=== PATIENT | female | born 1975 | race Caucasian/White ===

== ENCOUNTER 2017-04-29 10:54 | Emergency (ER) | payer MEDICAID ==
[2017-04-29 11:12] VITALS: BP 103/68
--- NOTE | 2017-04-29 11:56 | EDM.PDOC ---
ED HPI GENERAL MEDICAL PROBLEM - General Chief Complaint: Genitourinary Problem Stated Complaint: POSS BLADDER INFECTION Time Seen by Provider: 04/29/17 11:43 Source of Information: Reports: Patient, Family (mother) History Limitations: Reports: No Limitations - History of Present Illness INITIAL COMMENTS - FREE TEXT/NARRATIVE: 41-year-old female presents for evaluation and treatment of possible urinary tract infection. Reports that she first started experiencing some dysuria this morning. She describes a burning sensation when she voids. She also reports that she's had some chills, low back pain, nausea and vomiting for the last 2 days. No fevers, hematuria or vaginal discharge. She reports strong odor with her urine. patient recently finished a course of Cipro last week for an MRSA infection in her finger and her vagina. She did have her influenza vaccine this season. Mom reports that she drinks plenty of water. Perineal Area Pain Score (Numeric/FACES): 4 - Related Data Allergies Allergy/AdvReac Type Severity Reaction Status Date / Time mesalamine Allergy Rash Verified 04/29/17 11:01 Sulfa (Sulfonamide Allergy Rash Verified 04/29/17 11:01 Antibiotics) Home Meds: Home Meds Escitalopram [Lexapro] 20 mg PO DAILY 07/27/13 [History] Ferrous Sulfate [Ferosul] 325 mg PO BID 07/27/13 [History] Fluticasone/Salmeterol [Advair 250-50 Diskus] 1 puff INH BID 07/27/13 [History] Mesalamine [Lialda] 2.4 gm PO DAILY 07/27/13 [History] Montelukast Sodium 10 mg PO DAILY 07/27/13 [History] Norgestimate-Ethinyl Estradiol [Ortho Tri-Cyclen] 1 each PO DAILY 07/27/13 [ History] PNV95/Ferrous Fumarate/FA [ Multivitamins] 1 each PO DAILY 07/27/13 [ History] buPROPion [Wellbutrin SR] 100 mg PO DAILY 07/27/13 [History] carBAMazepine [Carbamazepine] 300 mg PO BID 07/27/13 [History] Famotidine 20 mg PO BID 11/03/15 [History] Bactroban Ointment. 1 gr TOP ASDIRECTED 01/15/16 [History] Mupirocin Oint [Bactroban Oint] 22 gm TOP TID #1 tube 02/23/16 [Rx] Doxycycline [Vibramycin] 100 mg PO Q12HR #14 cap 06/11/16 [Rx] Nitrofurantoin Monohyd/M-Cryst [Macrobid 100 mg Capsule] 100 mg PO BID #10 capsule 04/29/17 [Rx] Past Medical History HEENT History: Reports: Impaired Vision Respiratory History: Reports: Asthma Gastrointestinal History: Reports: GERD, Other (See Below) Other Gastrointestinal History: colitis Neurological History: Reports: Migraines, Seizure Psychiatric History: Reports: Anxiety, Depression, Other (See Below) Other Psychiatric History: developmental delay Dermatologic History: Reports: Other (See Below) Other Dermatologic History: 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 - Infectious Disease History Infectious Disease History: Reports: MRSA - Past Surgical History Female Surgical History: Reports: Other (See Below) Social & Family History - Family History Family Medical History: Noncontributory Cardiac: Reports: CAD Neurological: Reports: CVA Endocrine/Metabolic: Reports: Diabetes, type II Oncologic: Reports: Breast, Colon - Tobacco Use Smoking Status *Q: Never Smoker Second Hand Smoke Exposure: No - Caffeine Use Caffeine Use: Reports: None - Recreational Drug Use Recreational Drug Use: No - Living Situation & Occupation Occupation: Other ED ROS GENERAL - Review of Systems Review Of Systems: See Below Constitutional: Reports: Chills. Denies: Fever GI/Abdominal: Reports: Nausea. Denies: Abdominal Pain, Vomiting : Reports: Dysuria, Pain (suprapubic), Other (reports change in urine odor; denies any vaginal discharge or vaginal pruritus). Denies: Hematuria Musculoskeletal: Reports: Back Pain (lower back) ED EXAM, RENAL/ - Physical Exam Exam: See Below Exam Limited By: No Limitations General Appearance: Alert, WD/WN, No Apparent Distress Respiratory/Chest: No Respiratory Distress, Lungs Clear, Normal Breath Sounds Cardiovascular: Normal Peripheral Pulses, Regular Rate, Rhythm, No Murmur GI/Abdominal: Normal Bowel Sounds, Soft, Non-Tender Back Exam: Normal Inspection. No: CVA Tenderness (L), CVA Tenderness (R) Neurological: Alert, Oriented, Normal Cognition Psychiatric: Normal Affect, Normal Mood Skin Exam: Warm, Dry, Normal Color Course - Vital Signs Last Recorded V/S: Last Vital Signs Temp 36.9 C 04/29/17 11:08 Pulse 72 04/29/17 11:08 Resp 12 04/29/17 11:08 BP 103/68 04/29/17 11:08 Pulse Ox 95 04/29/17 11:08 - Orders/Labs/Meds Labs: Laboratory Tests 04/29/17 Range/Units 11:00 Urine Color Yellow (Yellow) Urine Appearance Slt cloudy H (Clear) Urine pH 5.5 (5.0-8.0) Ur Specific [place] > or = 1.030 (1.005-1.030) Urine Protein Negative (Negative) Urine Glucose (UA) Negative (Negative) Urine Ketones Negative (Negative) Urine Occult Blood Negative (Negative) Urine Nitrite Negative (Negative) Urine Bilirubin Negative (Negative) Urine Urobilinogen 0.2 (0.2-1.0) Ur Leukocyte Esterase Trace H (Negative) Urine RBC Not seen (0-5) /hpf Urine WBC 0-5 (0-5) /hpf Ur Epithelial Cells 10-20 H (0-5) /hpf Urine Bacteria Moderate H (FEW) /hpf Urine Mucus Many H (FEW) /hpf - Re-Assessments/Exams Free Text/Narrative Re-Assessment/Exam: 04/29/17 11:53 Urine shows moderate bacteria on microscopy. Trace leukocytes. We'll treat for urinary tract infection. urine for culture. Mom asked that we call her with results. Call jahaira at [phone] if change in antibiotics are needed. Discharge instructions as documented. Departure - Departure Time of Disposition: 11:54 Disposition: Home, Self-Care 01 Condition: Good Clinical Impression: UTI, Urinary tract infectious disease - Discharge Information Prescriptions: Nitrofurantoin Monohyd/M-Cryst [Macrobid 100 mg Capsule] 100 mg PO BID #10 capsule Instructions: Urinary Tract Infection, Adult, [id number] Referrals: Kelly Rivera PA-C [Primary Care Provider] - Forms: ED Department Discharge Additional Instructions: Macrobid 1 tablet twice a day for 5 days. Make sure you drink plenty of fluids. [id number] Azo as needed for dysuria relief. Follow up with your primary care provider this week if your symptoms have not improved. Please return to the ER if your symptoms change or worsen.
== END 2017-04-29 12:10 | disposition home or self-care (01) ==
LOC: JD.ED 10:54
DX: N39.0 Urinary tract infection, site not specified (principal); Z88.2 Allergy status to sulfonamides; Z88.8 Allergy status to other drugs, medicaments and biological substances; Z79.899 Other long term (current) drug therapy
CPT/HCPCS: 81001; 99283; 99284

== ENCOUNTER 2017-05-01 18:45 | Emergency (ER) | payer MEDICAID ==
[2017-05-01 18:59] VITALS: BP 119/69
[2017-05-01] MEDS ORDERED: Doxycycline 100 MG Cap PO ONE (21:36)
--- NOTE | 2017-05-01 21:40 | EDM.PDOC ---
ED HPI GENERAL MEDICAL PROBLEM - General Chief Complaint: Genitourinary Problem Stated Complaint: BLADDER PROBLEMS Time Seen by Provider: 05/01/17 19:45 Source of Information: Reports: Patient History Limitations: Reports: No Limitations - History of Present Illness INITIAL COMMENTS - FREE TEXT/NARRATIVE: 41-year-old female with developmental disability presents with her mother for evaluation and treatment of urinary tract infection. Patient was seen by myself on Monday. UA showed a urinary tract infection. She is started on Macrobid. Unfortunately, due to a computer error the urine was not sent for culture as ordered. Patient presents today reporting that her urinary tract infections are not getting any better and seemed to be worsening. She has been taking Azo but continues to have dysuria. She reports pain to the suprapubic area and into her low back. She denies any nausea, vomiting, fevers or chills. Uterine Pain Score (Numeric/FACES): 7 - Related Data Allergies Allergy/AdvReac Type Severity Reaction Status Date / Time mesalamine Allergy Rash Verified 05/01/17 18:58 Sulfa (Sulfonamide Allergy Rash Verified 05/01/17 18:58 Antibiotics) Home Meds: Home Meds Escitalopram [Lexapro] 20 mg PO DAILY 07/27/13 [History] Ferrous Sulfate [Ferosul] 325 mg PO BID 07/27/13 [History] Fluticasone/Salmeterol [Advair 250-50 Diskus] 1 puff INH BID 07/27/13 [History] Mesalamine [Lialda] 2.4 gm PO DAILY 07/27/13 [History] Montelukast Sodium 10 mg PO DAILY 07/27/13 [History] Norgestimate-Ethinyl Estradiol [Ortho Tri-Cyclen] 1 each PO DAILY 07/27/13 [ History] PNV95/Ferrous Fumarate/FA [ Multivitamins] 1 each PO DAILY 07/27/13 [ History] buPROPion [Wellbutrin SR] 100 mg PO DAILY 07/27/13 [History] carBAMazepine [Carbamazepine] 300 mg PO BID 07/27/13 [History] Famotidine 20 mg PO BID 11/03/15 [History] Bactroban Ointment. 1 gr TOP ASDIRECTED 01/15/16 [History] Mupirocin Oint [Bactroban Oint] 22 gm TOP TID #1 tube 02/23/16 [Rx] Doxycycline [Vibramycin] 100 mg PO Q12HR #14 cap 06/11/16 [Rx] Nitrofurantoin Monohyd/M-Cryst [Macrobid 100 mg Capsule] 100 mg PO BID #10 capsule 04/29/17 [Rx] Doxycycline [Vibramycin] 100 mg PO Q12HR #19 cap 05/01/17 [Rx] Past Medical History HEENT History: Reports: Impaired Vision Respiratory History: Reports: Asthma Gastrointestinal History: Reports: GERD, Other (See Below) Other Gastrointestinal History: colitis Neurological History: Reports: Migraines, Seizure Psychiatric History: Reports: Anxiety, Depression, Other (See Below) Other Psychiatric History: developmental delay Dermatologic History: Reports: Other (See Below) Other Dermatologic History: MRSA vaginal - and outbreak under nails recently - Infectious Disease History Infectious Disease History: Reports: MRSA - Past Surgical History Female Surgical History: Reports: Other (See Below) Social & Family History - Family History Family Medical History: Noncontributory Cardiac: Reports: CAD Neurological: Reports: CVA Endocrine/Metabolic: Reports: Diabetes, type II Oncologic: Reports: Breast, Colon - Tobacco Use Smoking Status *Q: Never Smoker Second Hand Smoke Exposure: No - Caffeine Use Caffeine Use: Reports: None - Recreational Drug Use Recreational Drug Use: No - Living Situation & Occupation Occupation: Other ED ROS GENERAL - Review of Systems Review Of Systems: See Below Constitutional: Denies: Fever, Chills GI/Abdominal: Reports: Abdominal Pain (suprapubic discomfort). Denies: Nausea, Vomiting : Reports: Dysuria, Flank Pain (bilateral) Musculoskeletal: Reports: Back Pain (bilateral lower back) ED EXAM, RENAL/ - Physical Exam Exam: See Below Exam Limited By: No Limitations General Appearance: Alert, WD/WN, No Apparent Distress Ears: Normal External Exam Nose: Normal Inspection Throat/Mouth: Normal Inspection, Normal Lips, Normal Oropharynx, Normal Voice, No Airway Compromise Respiratory/Chest: No Respiratory Distress, Lungs Clear, Normal Breath Sounds Cardiovascular: Normal Peripheral Pulses, Regular Rate, Rhythm, No Murmur GI/Abdominal: Normal Bowel Sounds, Soft, Tender (suprapubic) (Female) Exam: Normal External Exam, Normal Speculum Exam, Vaginal Discharge (white, thin). No: Vaginal Bleeding Back Exam: Normal Inspection, CVA Tenderness (L), CVA Tenderness (R) Neurological: Alert, Oriented, Normal Cognition Psychiatric: Normal Affect, Normal Mood Skin Exam: Warm, Dry Course - Vital Signs Last Recorded V/S: Last Vital Signs Temp 36.7 C 05/01/17 18:55 Pulse 66 05/01/17 18:55 Resp 18 05/01/17 18:55 BP 119/69 05/01/17 18:55 Pulse Ox 97 05/01/17 18:55 - Orders/Labs/Meds Orders: Active Orders 24 hr Category Date Time Status Pelvic Exam, Set Up [RC] ASDIRECTED Care 05/01/17 20:01 Active CULTURE URINE [RM] Stat Lab 05/01/17 20:35 Received Labs: Laboratory Tests 05/01/17 Range/Units 20:35 Urine Color [place] H (Yellow) Urine Appearance Slt cloudy H (Clear) Urine pH 5.0 (5.0-8.0) Ur Specific [place] 1.015 (1.005-1.030) Urine Protein 2+ H (Negative) Urine Glucose (UA) Trace H (Negative) Urine Ketones 1+ H (Negative) Urine Occult Blood Trace-intact H (Negative) Urine Nitrite Positive H (Negative) Urine Bilirubin 1+ H (Negative) Urine Urobilinogen 4.0 H (0.2-1.0) Ur Leukocyte Esterase 3+ H (Negative) Urine RBC 0-5 (0-5) /hpf Urine WBC 10-20 H (0-5) /hpf Ur Epithelial Cells 0-5 (0-5) /hpf Urine Bacteria Moderate H (FEW) /hpf Urine Mucus Not seen (FEW) /hpf Meds: Medications Discontinued Medications Generic Name Dose Route Start Last Admin Trade Name Freq PRN Reason Stop Dose Admin Doxycycline Hyclate 100 mg 05/01/17 21:36 05/01/17 21:47 Vibramycin PO 05/01/17 21:37 100 mg ONETIME ONE Administration - Re-Assessments/Exams Free Text/Narrative Re-Assessment/Exam: 05/01/17 21:28 I reviewed the workup and UA results with the patient and her mother. Wet prep is remarkable only for a few clue cells. I feel her discomfort is primarily from a urinary tract infection. Urine has been sent for culture. Will follow-up with her primary care provider end of this week or early next week. Discharge instructions as documented. Departure - Departure Time of Disposition: 21:38 Disposition: Home, Self-Care 01 Condition: Fair Clinical Impression: UTI, Urinary tract infectious disease - Discharge Information Prescriptions: Doxycycline [Vibramycin] 100 mg PO Q12HR #19 cap Instructions: Urinary Tract Infection, Adult, [id number] Referrals: Kelly Rivera PA-C [Primary Care Provider] - Forms: ED Department Discharge Additional Instructions: Continue to drink plenty of fluids. may continue taking Azo as needed for symptom relief. Stop the Macrobid. Take doxycycline 1 tablet twice a day. Take this for 10 days. your first dose was given in the ER. Start your prescription tomorrow. Follow-up with later this week or Monday. Please return to ER if your symptoms change or worsen. - My Orders Last 24 Hours: My Active Orders 05/01/17 20:01 Pelvic Exam, Set Up [RC] ASDIRECTED 05/01/17 20:35 CULTURE URINE [RM] Stat - Assessment/Plan Last 24 Hours: My Active Orders 05/01/17 20:01 Pelvic Exam, Set Up [RC] ASDIRECTED 05/01/17 20:35 CULTURE URINE [RM] Stat
== END 2017-05-01 21:48 | disposition home or self-care (01) ==
LOC: JD.ED 18:45
DX: N39.0 Urinary tract infection, site not specified (principal); Z88.2 Allergy status to sulfonamides; Z79.899 Other long term (current) drug therapy
CPT/HCPCS: 81001; 87086; 87210; 87808; 99284; A9270; 99283

== ENCOUNTER 2017-06-30 16:50 | Emergency (ER) | payer MEDICAID ==
--- NOTE | 2017-06-30 17:16 | EDM.PDOC ---
ED HPI GENERAL MEDICAL PROBLEM - General Chief Complaint: Allergic Reaction Stated Complaint: RASH ON HANDS Time Seen by Provider: 06/30/17 16:59 Source of Information: Reports: Patient, Family (mother), RN Notes Reviewed - History of Present Illness INITIAL COMMENTS - FREE TEXT/NARRATIVE: 41 year old female with bilat severe hand pain, redness, inflamation worsening over the past 2 days. She and her mother have been doing a lot of cleaning at home, had some " mouse exposure" today to where mice had gotten into a closet, cleaning that up. Mother worried about that. However she also works at a [employer], exposed to some cleaning fluids and a lot of washing and drying of the hands. Bilateral Hand Pain Score (Numeric/FACES): 6 - Related Data Allergies Allergy/AdvReac Type Severity Reaction Status Date / Time mesalamine Allergy Rash Verified 06/30/17 17:00 Sulfa (Sulfonamide Allergy Rash Verified 06/30/17 17:00 Antibiotics) Home Meds: Home Meds Escitalopram [Lexapro] 20 mg PO DAILY 07/27/13 [History] Ferrous Sulfate [Ferosul] 325 mg PO BID 07/27/13 [History] Fluticasone/Salmeterol [Advair 250-50 Diskus] 1 puff INH BID 07/27/13 [History] Mesalamine [Lialda] 2.4 gm PO DAILY 07/27/13 [History] Montelukast Sodium 10 mg PO DAILY 07/27/13 [History] Norgestimate-Ethinyl Estradiol [Ortho Tri-Cyclen] 1 each PO DAILY 07/27/13 [ History] PNV95/Ferrous Fumarate/FA [ Multivitamins] 1 each PO DAILY 07/27/13 [ History] buPROPion [Wellbutrin SR] 100 mg PO DAILY 07/27/13 [History] carBAMazepine [Carbamazepine] 300 mg PO BID 07/27/13 [History] Famotidine 20 mg PO BID 11/03/15 [History] Bactroban Ointment. 1 gr TOP ASDIRECTED 01/15/16 [History] Mupirocin Oint [Bactroban Oint] 22 gm TOP TID #1 tube 02/23/16 [Rx] Doxycycline [Vibramycin] 100 mg PO Q12HR #14 cap 06/11/16 [Rx] Nitrofurantoin Monohyd/M-Cryst [Macrobid 100 mg Capsule] 100 mg PO BID #10 capsule 04/29/17 [Rx] Doxycycline [Vibramycin] 100 mg PO Q12HR #19 cap 05/01/17 [Rx] Cephalexin 500 mg PO Q8HR #20 capsule 06/30/17 [Rx] Past Medical History HEENT History: Reports: Impaired Vision Respiratory History: Reports: Asthma Gastrointestinal History: Reports: GERD, Other (See Below) Other Gastrointestinal History: colitis Neurological History: Reports: Migraines, Seizure Psychiatric History: Reports: Anxiety, Depression, Other (See Below) Other Psychiatric History: developmental delay Dermatologic History: Reports: Other (See Below) Other Dermatologic History: MRSA vaginal - and outbreak under nails recently - Infectious Disease History Infectious Disease History: Reports: MRSA - Past Surgical History Female Surgical History: Reports: Other (See Below) Social & Family History - Family History Family Medical History: Noncontributory Cardiac: Reports: CAD Neurological: Reports: CVA Endocrine/Metabolic: Reports: Diabetes, type II Oncologic: Reports: Breast, Colon - Tobacco Use Smoking Status *Q: Never Smoker Second Hand Smoke Exposure: No - Caffeine Use Caffeine Use: Reports: None - Recreational Drug Use Recreational Drug Use: No - Living Situation & Occupation Occupation: Other ED ROS ALLERGIC REACTION - Review of Systems Review Of Systems: See Below Constitutional: Reports: No Symptoms HEENT: Reports: No Symptoms Respiratory: Denies: Shortness of Breath, Wheezing Cardiovascular: Denies: Chest Pain GI/Abdominal: Denies: Abdominal Pain, Nausea, Vomiting Musculoskeletal: Reports: No Symptoms Skin: Reports: Rash, Erythema (bilat hands and wrists, skin otherwise clear) ED EXAM GENERAL NO PERIP PULSE - Physical Exam Exam: See Below General Appearance: Alert, Moderate Distress Eye Exam: Bilateral Eye: PERRL Throat/Mouth: Normal Inspection Neck: Normal Inspection, Supple Respiratory/Chest: No Respiratory Distress, Lungs Clear Cardiovascular: Regular Rate, Rhythm Neurological: Alert, No Motor/Sensory Deficits Skin Exam: Erythema (marked erythema, mild swelling bilat hands and wrists, skin otherwise clear, no open sores or lesions) Course - Vital Signs Last Recorded V/S: Last Vital Signs Temp 98.7 F 06/30/17 17:01 Pulse 80 06/30/17 17:01 Resp 18 06/30/17 17:01 BP Pulse Ox 99 03/09/18 17:01 Departure - Departure Time of Disposition: 17:25 Disposition: Home, Self-Care 01 Condition: Fair Clinical Impression: Hand dermatitis - Discharge Information Prescriptions: Cephalexin 500 mg PO Q8HR #20 capsule Instructions: Hand Dermatitis, [id number] Referrals: Kelly Rivera PA-C [Primary Care Provider] - Forms: ED Department Discharge Additional Instructions: triamcinolone cream 3 times daily for bilateral hand dermatitis, cephalexin antibiotic 500 mg 3 times daily, tylenol 2 to 3 times daily if needed for pain , follow up clinic if not much better within 5 to 7 days as expected.
== END 2017-06-30 18:06 | disposition home or self-care (01) ==
LOC: JD.ED 16:50
DX: L30.9 Dermatitis, unspecified (principal); J45.909 Unspecified asthma, uncomplicated; K21.9 Gastro-esophageal reflux disease without esophagitis; F32.9 Major depressive disorder, single episode, unspecified; Z86.14 Personal history of Methicillin resistant Staphylococcus aureus infection; Z79.899 Other long term (current) drug therapy; Z88.2 Allergy status to sulfonamides; Z88.8 Allergy status to other drugs, medicaments and biological substances
CPT/HCPCS: 99283

== ENCOUNTER 2017-07-01 20:21 | Emergency (ER) | payer MEDICAID ==
[2017-07-01 20:26] VITALS: BP 140/78
[2017-07-01] MEDS ORDERED: Albuterol/Ipratropium 3.0-0.5 MG/3 ML Neb Soln NEB ONE ×2 (20:28→21:46)
[2017-07-01] MEDS ORDERED: LORazepam 2 MG/ML SDV IVPUSH ONE (20:29)
[2017-07-01] MEDS ORDERED: Sodium Chloride 0.9% 1,000 ML IV SCH (20:30)
--- NOTE | 2017-07-01 21:01 | EDM.PDOC ---
ED HPI GENERAL MEDICAL PROBLEM - General Chief Complaint: Respiratory Problem Stated Complaint: SOB Time Seen by Provider: 07/01/17 20:24 Source of Information: Reports: Patient History Limitations: Reports: No Limitations - History of Present Illness INITIAL COMMENTS - FREE TEXT/NARRATIVE: This is a 41-year-old female. Sudden onset tonight with stridor-type breathing. The mother went into the patient's bedroom and noted the breathing and brought her directly to the ER. The patient does use nebulizer treatments but they didn't give one at home before coming to the ER. When the patient is rolled into the ER by wheelchair you can hear the stridorous type breathing. However the patient is not appearing to be cyanotic she is sitting back in the wheel chair without anxiety or panic noted and seems to be very relaxed. Once in the room the stridorous type breathing comes and goes and she is able to talk normally and does not sound hoarse. She is having no nasal flaring she's having no retractions noted. Once I distract her and asking her questions she will attempt to answer them verbally and her stridorous breathing stops. The patient states she has some allergies but she doesn't think she got exposed to anything that would cause this type of breathing. No fever no chills recently no cough no congestion. She's had no nausea or vomiting. - Related Data Allergies Allergy/AdvReac Type Severity Reaction Status Date / Time mesalamine Allergy Rash Verified 06/30/17 17:00 Sulfa (Sulfonamide Allergy Rash Verified 06/30/17 17:00 Antibiotics) Home Meds: Home Meds Escitalopram [Lexapro] 20 mg PO DAILY 07/27/13 [History] Ferrous Sulfate [Ferosul] 325 mg PO BID 07/27/13 [History] Fluticasone/Salmeterol [Advair 250-50 Diskus] 1 puff INH BID 07/27/13 [History] Mesalamine [Lialda] 2.4 gm PO DAILY 07/27/13 [History] Montelukast Sodium 10 mg PO DAILY 07/27/13 [History] Norgestimate-Ethinyl Estradiol [Ortho Tri-Cyclen] 1 each PO DAILY 07/27/13 [ History] PNV95/Ferrous Fumarate/FA [ Multivitamins] 1 each PO DAILY 07/27/13 [ History] buPROPion [Wellbutrin SR] 100 mg PO DAILY 07/27/13 [History] carBAMazepine [Carbamazepine] 300 mg PO BID 07/27/13 [History] Famotidine 20 mg PO BID 11/03/15 [History] Bactroban Ointment. 1 gr TOP ASDIRECTED 01/15/16 [History] Mupirocin Oint [Bactroban Oint] 22 gm TOP TID #1 tube 02/23/16 [Rx] Doxycycline [Vibramycin] 100 mg PO Q12HR #14 cap 06/11/16 [Rx] Nitrofurantoin Monohyd/M-Cryst [Macrobid 100 mg Capsule] 100 mg PO BID #10 capsule 04/29/17 [Rx] Doxycycline [Vibramycin] 100 mg PO Q12HR #19 cap 05/01/17 [Rx] Cephalexin 500 mg PO Q8HR #20 capsule 06/30/17 [Rx] Past Medical History HEENT History: Reports: Impaired Vision Respiratory History: Reports: Asthma Gastrointestinal History: Reports: GERD, Other (See Below) Other Gastrointestinal History: colitis Neurological History: Reports: Migraines, Seizure Psychiatric History: Reports: Anxiety, Depression, Other (See Below) Other Psychiatric History: developmental delay Dermatologic History: Reports: Other (See Below) Other Dermatologic History: MRSA vaginal - and outbreak under nails recently - Infectious Disease History Infectious Disease History: Reports: MRSA - Past Surgical History Female Surgical History: Reports: Other (See Below) Social & Family History - Family History Family Medical History: Noncontributory Cardiac: Reports: CAD Neurological: Reports: CVA Endocrine/Metabolic: Reports: Diabetes, type II Oncologic: Reports: Breast, Colon - Tobacco Use Smoking Status *Q: Never Smoker Second Hand Smoke Exposure: No - Caffeine Use Caffeine Use: Reports: None - Recreational Drug Use Recreational Drug Use: No - Living Situation & Occupation Occupation: Other ED ROS GENERAL - Review of Systems Review Of Systems: See Below Constitutional: Denies: Fever, Chills HEENT: Denies: Rhinitis, Sinus Problem Respiratory: Reports: Shortness of Breath, Other (Stridorous type breathing). Denies: Cough Cardiovascular: Denies: Chest Pain Endocrine: Reports: No Symptoms GI/Abdominal: Denies: Abdominal Pain, Diarrhea, Nausea, Vomiting : Reports: No Symptoms Musculoskeletal: Reports: No Symptoms Skin: Reports: No Symptoms Neurological: Reports: No Symptoms Psychiatric: Reports: No Symptoms Hematologic/Lymphatic: Reports: No Symptoms ED EXAM, GENERAL - Physical Exam Exam: See Below Exam Limited By: No Limitations General Appearance: Alert, WD/WN, No Apparent Distress, Other (She has audible stridor but it comes and goes) Eye Exam: Bilateral Eye: Normal Inspection Ears: Normal External Exam, Normal Canal, Normal TMs Nose: Normal Inspection, Normal Mucosa. No: Nasal Flaring Throat/Mouth: Normal Inspection, Normal Lips, Normal Oropharynx, Normal Voice, No Airway Compromise Head: Normocephalic Neck: Supple, Other (Listening to the neck confirms the stridorous type breathing is coming from the neck) Respiratory/Chest: No Respiratory Distress, Lungs Clear, Normal Breath Sounds, Other (She has excellent excursion of her lungs, there is absolutely no inspiratory or expiratory wheezing noted). No: No Accessory Muscle Use, Respiratory Distress, Wheezing, Retractions Cardiovascular: Regular Rate, Rhythm, No Murmur GI/Abdominal: Soft, Non-Tender Back Exam: Full Range of Motion Extremities: Normal Inspection, Normal Range of Motion Neurological: Alert, Oriented Psychiatric: Normal Affect, Normal Mood Skin Exam: Warm, Dry Course - Vital Signs Last Recorded V/S: Last Vital Signs Temp 96.0 F 07/01/17 20:25 Pulse 64 07/01/17 20:25 Resp 24 H 07/01/17 20:25 BP 140/78 07/01/17 20:25 Pulse Ox 100 07/01/17 22:08 - Orders/Labs/Meds Orders: Active Orders 24 hr Category Date Time Status RT Aerosol Therapy [RC] ASDIRECTED Care 07/01/17 20:28 Active RT Aerosol Therapy [RC] ASDIRECTED Care 07/01/17 21:46 Active CULTURE STREP A CONFIRMATION [RM] Stat Lab 07/01/17 21:30 Results Rapid Strep w/culture conf [STREP SCRN A RAPID W CULT Lab 07/01/17 21:30 Results CONF] [] Stat Sodium Chloride 0.9% [Normal Saline] 1,000 ml Med 07/01/17 20:30 Active IV ASDIRECTED Medication Orders Sodium Chloride (Normal Saline) 1,000 mls @ 1,000 mls/hr IV ASDIRECTED LATHA Last Admin: 07/01/17 20:35 Dose: 1,000 mls/hr Labs: Laboratory Tests 07/01/17 07/01/17 Range/Units 20:25 20:25 WBC 4.66 (3.98-10.04) K/mm3 RBC 4.26 (3.98-5.22) M/mm3 Hgb 13.3 (11.2-15.7) gm/L Hct 39.8 (34.1-44.9) % MCV 93.4 (79.4-94.8) fl MCH 31.2 (25.6-32.2) pg MCHC 33.4 (32.2-35.5) g/dl RDW Std Deviation 41.3 (36.4-46.3) fL Plt Count 344 (182-369) K/mm3 MPV 9.2 L (9.4-12.3) fl Neut % (Auto) 52.8 (34.0-71.1) % Lymph % (Auto) 30.7 (19.3-51.7) % Gulf % (Auto) 12.2 (4.7-12.5) % Eos % (Auto) 3.9 (0.7-5.8) Baso % (Auto) 0.4 (0.1-1.2) % Neut # (Auto) 2.46 (1.56-6.13) K/mm3 Lymph # (Auto) 1.43 (1.18-3.74) K/mm3 Gulf # (Auto) 0.57 H (0.24-0.36) K/mm3 Eos # (Auto) 0.18 (0.04-0.36) K/mm3 Baso # (Auto) 0.02 (0.01-0.08) K/mm3 Sodium 139 (136-145) mEq/L Potassium 3.7 (3.5-5.1) mEq/L Chloride 104 (98-107) mEq/L Carbon Dioxide 21 (21-32) mEq/L Anion Gap 17.7 H (5-15) BUN 19 H (7-18) mg/dL Creatinine 1.0 (0.55-1.02) mg/dL Est Cr Clr Drug Dosing TNP Estimated GFR (MDRD) > 60 (>60) mL/min BUN/Creatinine Ratio 19.0 H (14-18) Glucose 102 (74-106) mg/dL Calcium 9.5 (8.5-10.1) mg/dL Total Bilirubin 0.3 (0.2-1.0) mg/dL AST 25 (15-37) U/L ALT 41 (14-59) U/L Alkaline Phosphatase 110 (46-116) U/L Total Protein 7.9 (6.4-8.2) g/dl Albumin 4.0 (3.4-5.0) g/dl Globulin 3.9 gm/dL Albumin/Globulin Ratio 1.0 (1-2) Carbamazepine 5.5 (4.0-12.0) ug/mL Meds: Medications Generic Name Dose Route Start Last Admin Trade Name Freq PRN Reason Stop Dose Admin Sodium Chloride 1,000 mls @ 1,000 mls/hr 07/01/17 20:30 07/01/17 20:35 Normal Saline IV 1,000 mls/hr ASDIRECTED LATHA Administration Discontinued Medications Generic Name Dose Route Start Last Admin Trade Name Freq PRN Reason Stop Dose Admin Albuterol/Ipratropium 3 ml 07/01/17 20:28 07/01/17 20:47 Duoneb 3.0-0.5 Mg/3 Ml NEB 07/01/17 20:29 3 ml ONETIME ONE Administration Albuterol/Ipratropium 3 ml 07/01/17 21:46 07/01/17 22:08 Duoneb 3.0-0.5 Mg/3 Ml NEB 07/01/17 21:47 3 ml ONETIME ONE Administration Lorazepam 0.5 mg 07/01/17 20:29 07/01/17 20:36 Ativan IVPUSH 07/01/17 20:30 0.5 mg ONETIME ONE Administration - Re-Assessments/Exams Free Text/Narrative Re-Assessment/Exam: 07/01/17 22:13 The patient is doing well, there is no more stridorous type breathing. She is calm and breathing normally and talking normally and wants to go home. 07/01/17 22:13 I did speak to them regarding the lab results. Departure - Departure Time of Disposition: 22:14 Disposition: Home, Self-Care 01 Condition: Good Clinical Impression: Difficulty breathing Exacerbation of asthma Qualifiers: Asthma severity: mild Asthma persistence: unspecified Qualified Code(s): J45.901 - Unspecified asthma with (acute) exacerbation - Discharge Information Referrals: Kelly Rivera PA-C [Primary Care Provider] - Forms: ED Department Discharge Additional Instructions: Continue with the nebulizer treatments at home as needed for the breathing, recheck with your family doctor this week, return to the ER if needed - My Orders Last 24 Hours: My Active Orders 07/01/17 20:28 RT Aerosol Therapy [RC] ASDIRECTED 07/01/17 20:30 Sodium Chloride 0.9% [Normal Saline] 1,000 ml IV ASDIRECTED 07/01/17 21:30 CULTURE STREP A CONFIRMATION [RM] Stat Rapid Strep w/culture conf [STREP SCRN A RAPID W CULT CONF] [RM] Stat 07/01/17 21:46 RT Aerosol Therapy [RC] ASDIRECTED - Assessment/Plan Last 24 Hours: My Active Orders 07/01/17 20:28 RT Aerosol Therapy [RC] ASDIRECTED 07/01/17 20:30 Sodium Chloride 0.9% [Normal Saline] 1,000 ml IV ASDIRECTED 07/01/17 21:30 CULTURE STREP A CONFIRMATION [RM] Stat Rapid Strep w/culture conf [STREP SCRN A RAPID W CULT CONF] [RM] Stat 07/01/17 21:46 RT Aerosol Therapy [RC] ASDIRECTED
== END 2017-07-01 22:23 | disposition home or self-care (01) ==
LOC: JD.ED 20:21 → SUPCPDRO 20:21 → JD.ED 22:23
DX: J45.901 Unspecified asthma with (acute) exacerbation (principal); K21.9 Gastro-esophageal reflux disease without esophagitis; F32.9 Major depressive disorder, single episode, unspecified; Z79.899 Other long term (current) drug therapy; Z88.2 Allergy status to sulfonamides; Z88.8 Allergy status to other drugs, medicaments and biological substances
CPT/HCPCS: 36415; 80053; 80156; 85025; 87081; 87430; 94640; 96361; 96374; 99285; J2060; J7040; 99284

== ENCOUNTER 2017-07-06 17:35 | Emergency (ER) | payer MEDICAID ==
[2017-07-06 17:48] VITALS: BP 156/102
[2017-07-06] MEDS: predniSONE 20 MG Tab PO ONE (18:34)
[2017-07-06] MEDS: Doxycycline 100 MG Cap PO ONE (18:34)
[2017-07-06] MEDS: LORazepam 0.5 MG Tab PO ONE (18:34)
[2017-07-06] MEDS: Acetaminophen/HYDROcodone 325-5 MG Tab PO ONE (18:34)
--- NOTE | 2017-07-06 18:51 | EDM.PDOC ---
ED HPI GENERAL MEDICAL PROBLEM - General Chief Complaint: Skin Complaint Stated Complaint: RASH ON HANDS AND IS IN PAIN Time Seen by Provider: 07/06/17 18:03 Source of Information: Reports: Patient, Family, RN Notes Reviewed - History of Present Illness INITIAL COMMENTS - FREE TEXT/NARRATIVE: 41 year old female comes in with severe hand, wrist and forearm discomfort, inflamation. Was seen here in the ED about 6 days ago, diagnosed with bilat hand and wrist dermatitis, see that chart for details. Was treated with cephalexin and kenalog cream 0.1 % topical. She has not been using the kenalog , states it "yao too much". The hands are somewhat better, wrists and now proximal forearms as well very inflamed. No drainage. Hx eczema. Treatments CLAIM AUDITOR: Reports: Other (see below) Other Treatments CLAIM AUDITOR: prednisone, steroid cream, lubriderm, vasaline bilateral arms Pain Score (Numeric/FACES): 10 - Related Data Allergies Allergy/AdvReac Type Severity Reaction Status Date / Time mesalamine Allergy Rash Verified 07/07/17 20:56 Sulfa (Sulfonamide Allergy Rash Verified 07/07/17 20:56 Antibiotics) Home Meds: Home Meds Escitalopram [Lexapro] 20 mg PO DAILY 07/27/13 [History] Ferrous Sulfate [Ferosul] 325 mg PO BID 07/27/13 [History] Fluticasone/Salmeterol [Advair 250-50 Diskus] 1 puff INH BID 07/27/13 [History] Mesalamine [Lialda] 2.4 gm PO DAILY 07/27/13 [History] Montelukast Sodium 10 mg PO DAILY 07/27/13 [History] Norgestimate-Ethinyl Estradiol [Ortho Tri-Cyclen] 1 each PO DAILY 07/27/13 [ History] PNV95/Ferrous Fumarate/FA [ Multivitamins] 1 each PO DAILY 07/27/13 [ History] buPROPion [Wellbutrin SR] 100 mg PO DAILY 07/27/13 [History] carBAMazepine [Carbamazepine] 300 mg PO BID 07/27/13 [History] Famotidine 20 mg PO BID 11/03/15 [History] Bactroban Ointment. 1 gr TOP ASDIRECTED 01/15/16 [History] Mupirocin Oint [Bactroban Oint] 22 gm TOP TID #1 tube 02/23/16 [Rx] Acetaminophen/HYDROcodone [Nutley 325-5 MG] 1 tab PO Q6H PRN #14 tablet 07/06/17 [Rx] Doxycycline [Vibramycin] 100 mg PO BID #20 tab 07/06/17 [Rx] Steroid Cream 1 applic TOP TID 07/06/17 [History] Vasaline 1 applic TOP ASDIRECTED PRN 07/06/17 [History] Fluconazole [Diflucan] 150 mg PO DAILY #2 tablet 07/07/17 [Rx] Past Medical History HEENT History: Reports: Impaired Vision Respiratory History: Reports: Asthma Gastrointestinal History: Reports: GERD, Other (See Below) Other Gastrointestinal History: colitis Neurological History: Reports: Migraines, Seizure Psychiatric History: Reports: Anxiety, Depression, Mood Swings, Other (See Below ) Other Psychiatric History: developmental delay, borderline personality disorder Dermatologic History: Reports: Other (See Below) Other Dermatologic History: MRSA vaginal - and outbreak under nails recently - Infectious Disease History Infectious Disease History: Reports: MRSA - Past Surgical History Female Surgical History: Reports: Other (See Below) Social & Family History - Family History Family Medical History: Noncontributory Cardiac: Reports: CAD Neurological: Reports: CVA Endocrine/Metabolic: Reports: Diabetes, type II Oncologic: Reports: Breast, Colon - Tobacco Use Smoking Status *Q: Never Smoker Second Hand Smoke Exposure: No - Caffeine Use Caffeine Use: Reports: None - Recreational Drug Use Recreational Drug Use: No - Living Situation & Occupation Occupation: Other ED ROS GENERAL - Review of Systems Review Of Systems: See Below Constitutional: Denies: Fever, Chills HEENT: Reports: No Symptoms Respiratory: Denies: Shortness of Breath Cardiovascular: Denies: Chest Pain GI/Abdominal: Denies: Abdominal Pain, Nausea, Vomiting Skin: Reports: Rash, Erythema Neurological: Reports: No Symptoms ED EXAM, SKIN/RASH Exam: See Below General Appearance: Alert, Anxious, Moderate Distress Eye Exam: Bilateral Eye: PERRL Throat/Mouth: Normal Inspection Head: Atraumatic, Other (no facial rash). No: Facial Swelling Neck: Supple Respiratory/Chest: No Respiratory Distress Neurological: Alert, Other (very anxious) Skin: Rash (bilat dorsal hand dermatitis, also involving bilat dorsal wrist and proximal forearms, no drainage, skin otherwise totally clear) Course - Vital Signs Last Recorded V/S: Last Vital Signs Temp 97.5 F 07/06/17 17:38 Pulse 106 H 07/06/17 17:38 Resp 18 07/06/17 17:38 BP 156/102 H 07/06/17 17:38 Pulse Ox 100 07/06/17 17:38 - Orders/Labs/Meds Meds: Medications Discontinued Medications Generic Name Dose Route Start Last Admin Trade Name Freq PRN Reason Stop Dose Admin Hydrocodone Bitart/Acetaminophen 1 tab 07/06/17 18:26 07/06/17 18:34 Nutley 325-5 Mg PO 07/06/17 18:27 1 tab ONETIME ONE Administration Doxycycline Hyclate 100 mg 07/06/17 18:26 07/06/17 18:34 Vibramycin PO 07/06/17 18:27 100 mg ONETIME ONE Administration Lorazepam 0.5 mg 07/06/17 18:26 07/06/17 18:34 Ativan PO 07/06/17 18:27 0.5 mg ONETIME ONE Administration Prednisone 40 mg 07/06/17 18:26 07/06/17 18:34 Prednisone PO 07/06/17 18:27 40 mg ONETIME ONE Administration - Re-Assessments/Exams Free Text/Narrative Re-Assessment/Exam: 07/08/17 07:39 interesting that it is the dorsal surface involved, patton aspect of hands totally clear suggestive that there was/is a component of topical rx. Patient not able to give a good hx today or 6 days ago what she may have been putting on her hands, wrists and forearms. Advised 6 days ago and again today to not put anything on her inflamed skin than the kenalog when tolerated or lubriderm. Will start on oral prednisone. Discharge instr. as documented. Departure - Departure Time of Disposition: 18:48 Disposition: Home, Self-Care 01 Condition: Fair Clinical Impression: Cellulitis Qualifiers: Site of cellulitis: extremity Site of cellulitis of extremity: upper extremity Laterality: right Qualified Code(s): L03.113 - Cellulitis of right upper limb - Discharge Information Prescriptions: Acetaminophen/HYDROcodone [Nutley 325-5 MG] 1 tab PO Q6H PRN #14 tablet PRN Reason: Pain Doxycycline [Vibramycin] 100 mg PO BID #20 tab Instructions: Cellulitis, Adult Referrals: Kelly Rivera PA-C [Primary Care Provider] - Forms: ED Department Discharge Additional Instructions: stop the cephalexin, start doxycycline 100 mg twice daily and take that for a full 10 days, prednisone as prescribed, hydrocodone either 1 full tab or 1/2 tab q 6 to 8 hr as needed for severe pain or tylenol for mild to moderate pain, ativan 0.5 mg twice daily for rest and relaxation until sx resolving, follow up clinic Monday or Monday for recheck, call in AM for appt. Resume the steroid cream to areas of inflamation as soon as possible.
== END 2017-07-06 19:25 | disposition home or self-care (01) ==
LOC: JD.ED 17:35
DX: L03.113 Cellulitis of right upper limb (principal); J45.909 Unspecified asthma, uncomplicated; K21.9 Gastro-esophageal reflux disease without esophagitis; F32.9 Major depressive disorder, single episode, unspecified; F41.9 Anxiety disorder, unspecified; Z88.2 Allergy status to sulfonamides; Z88.8 Allergy status to other drugs, medicaments and biological substances; Z79.899 Other long term (current) drug therapy
CPT/HCPCS: 99283; A9270

== ENCOUNTER 2017-07-07 20:38 | Emergency (ER) | payer MEDICAID ==
--- NOTE | 2017-07-07 20:50 | EDM.PDOCBH ---
ED HPI GENERAL MEDICAL PROBLEM - General Chief Complaint: Behavioral/Psych Stated Complaint: SKIN INFECTION/TALKING TO SELF Time Seen by Provider: 07/07/17 20:50 Source of Information: Reports: Patient - History of Present Illness INITIAL COMMENTS - FREE TEXT/NARRATIVE: Patient is brought here today by her mom, Shanelle and accompanied by her mom's friend as well. Patient has underlying diagnosis of anxiety, depression, developmental delay and borderline personality disorder. Patient's mom has concerns about patient's behavior changes recently. She has been very anxious and agitated. Patient has reported auditory hallucinations to her mother. Patient has been very overwhelmed by any sort of noise or people talking. Patient ran away yesterday, she was found by a family friend who took her home. When asked why she went away patient stated that she wanted to schedule her mother. Patient denies any depression or anxiety. She denies thoughts of harming herself. Mom is concerned that patient is not being truthful this patient has been talking about being with her grandma was a lot as she misses her and patient's grandmother is . Patient also has been talking a fair amount about her nephew and how much she misses him. Patient was on new antibiotic recently, she was initially on Keflex and then switched to doxycycline for a rash to her bilateral forearms. Mom states that since switching to doxycycline she has had significant improvement in her rash. She has been unable to apply lotion or Vaseline to this visit causes some pain and irritation to her skin. - Related Data Allergies Allergy/AdvReac Type Severity Reaction Status Date / Time mesalamine Allergy Rash Verified 07/07/17 20:56 Sulfa (Sulfonamide Allergy Rash Verified 07/07/17 20:56 Antibiotics) Home Meds: Home Meds Escitalopram [Lexapro] 20 mg PO DAILY 07/27/13 [History] Ferrous Sulfate [Ferosul] 325 mg PO BID 07/27/13 [History] Fluticasone/Salmeterol [Advair 250-50 Diskus] 1 puff INH BID 07/27/13 [History] Mesalamine [Lialda] 2.4 gm PO DAILY 07/27/13 [History] Montelukast Sodium 10 mg PO DAILY 07/27/13 [History] Norgestimate-Ethinyl Estradiol [Ortho Tri-Cyclen] 1 each PO DAILY 07/27/13 [ History] PNV95/Ferrous Fumarate/FA [ Multivitamins] 1 each PO DAILY 07/27/13 [ History] buPROPion [Wellbutrin SR] 100 mg PO DAILY 07/27/13 [History] carBAMazepine [Carbamazepine] 300 mg PO BID 07/27/13 [History] Famotidine 20 mg PO BID 11/03/15 [History] Bactroban Ointment. 1 gr TOP ASDIRECTED 01/15/16 [History] Mupirocin Oint [Bactroban Oint] 22 gm TOP TID #1 tube 02/23/16 [Rx] Acetaminophen/HYDROcodone [[place] 325-5 MG] 1 tab PO Q6H PRN #14 tablet 07/06/17 [Rx] Doxycycline [Vibramycin] 100 mg PO BID #20 tab 07/06/17 [Rx] Steroid Cream 1 applic TOP TID 07/06/17 [History] Vasaline 1 applic TOP ASDIRECTED PRN 07/06/17 [History] Fluconazole [Diflucan] 150 mg PO DAILY #2 tablet 07/07/17 [Rx] Past Medical History HEENT History: Reports: Impaired Vision Respiratory History: Reports: Asthma Gastrointestinal History: Reports: GERD, Other (See Below) Other Gastrointestinal History: colitis Neurological History: Reports: Migraines, Seizure Psychiatric History: Reports: Anxiety, Depression, Mood Swings, Other (See Below ) Other Psychiatric History: developmental delay, borderline personality disorder Dermatologic History: Reports: Other (See Below) Other Dermatologic History: MRSA vaginal - and outbreak under nails recently - Infectious Disease History Infectious Disease History: Reports: MRSA - Past Surgical History Female Surgical History: Reports: Other (See Below) Social & Family History - Family History Family Medical History: Noncontributory Cardiac: Reports: CAD Neurological: Reports: CVA Endocrine/Metabolic: Reports: Diabetes, type II Oncologic: Reports: Breast, Colon - Tobacco Use Smoking Status *Q: Never Smoker Second Hand Smoke Exposure: No - Caffeine Use Caffeine Use: Reports: None - Recreational Drug Use Recreational Drug Use: No - Living Situation & Occupation Occupation: Other ED ROS GENERAL - Review of Systems Review Of Systems: See Below Constitutional: Reports: Decreased Appetite. Denies: Fever, Chills, Weakness, Fatigue HEENT: Reports: No Symptoms Respiratory: Reports: No Symptoms Cardiovascular: Reports: No Symptoms Endocrine: Reports: No Symptoms GI/Abdominal: Reports: No Symptoms : Reports: Discharge, Dysuria, Frequency, Pain. Denies: Hematuria, Urgency, Urinary Retention Musculoskeletal: Reports: No Symptoms Skin: Reports: Rash (Bilateral forearms) Neurological: Reports: Confusion. Denies: Dizziness, Headache, Numbness, Syncope Psychiatric: Reports: Agitation, Anxiety, Confusion, Mood Lability. Denies: Suicidal Ideation ED EXAM, BEHAVIORAL HEALTH - Physical Exam Exam: See Below Exam Limited By: Altered Mental Status General Appearance: Alert, WD/WN, No Apparent Distress Eye Exam: Bilateral Eye: PERRL, Vision Changes Ears: Normal External Exam, Normal Canal, Normal TMs Nose: Normal Inspection, Normal Mucosa Throat/Mouth: Normal Inspection, Normal Oropharynx Head: Atraumatic, Normocephalic Respiratory/Chest: No Respiratory Distress, Lungs Clear, Normal Breath Sounds Cardiovascular: Normal Peripheral Pulses, Regular Rate, Rhythm, No Murmur GI/Abdominal: Normal Bowel Sounds, Soft, Non-Tender Neurological: Alert, CN II-XII Intact, No Motor/Sensory Deficits, Oriented x 3. No: Normal Cognition, Memory Loss Remote Events, Memory Loss Recent Events Psychiatric: Alert, Oriented, Flat Affect, Other (Patient anger is easily and mood changes very quickly. She is agitated and anxious throughout exam.). No: Suicidal Plan, Suicidal Thoughts, Auditory Hallucinations, Visual Hallucinations , Paranoid Thoughts Skin Exam: Warm, Dry, Intact, Rash (Erythematous rash to bilateral forearms.) COURSE, BEHAVIORAL HEALTH COMP - Course Vital Signs: Last Vital Signs Temp 96.9 F 07/07/17 20:49 Pulse 57 L 07/07/17 20:49 Resp 16 07/07/17 20:49 BP 122/73 07/07/17 20:49 Pulse Ox 100 07/07/17 20:49 Orders, Labs, Meds: Laboratory Tests 07/07/17 07/07/17 07/07/17 Range/Units 21:30 21:30 21:32 WBC (3.98-10.04) K/mm3 RBC (3.98-5.22) M/mm3 Hgb (11.2-15.7) gm/L Hct (34.1-44.9) % MCV (79.4-94.8) fl MCH (25.6-32.2) pg MCHC (32.2-35.5) g/dl RDW Std Deviation (36.4-46.3) fL Plt Count (182-369) K/mm3 MPV (9.4-12.3) fl Neutrophils % (Manual) (40-60) % Band Neutrophils % (0-10) % Lymphocytes % (Manual) (20-40) % Atypical Lymphs % % Monocytes % (Manual) (2-10) % Eosinophils % (Manual) (0.7-5.8) % Basophils % (Manual) (0.1-1.2) Platelet Estimate RBC Morph Comment Sodium (136-145) mEq/L Potassium (3.5-5.1) mEq/L Chloride (98-107) mEq/L Carbon Dioxide (21-32) mEq/L Anion Gap (5-15) BUN (7-18) mg/dL Creatinine (0.55-1.02) mg/dL Est Cr Clr Drug Dosing mL/min Estimated GFR (MDRD) (>60) mL/min BUN/Creatinine Ratio (14-18) Glucose (74-106) mg/dL Calcium (8.5-10.1) mg/dL Total Bilirubin (0.2-1.0) mg/dL AST (15-37) U/L ALT (14-59) U/L Alkaline Phosphatase (46-116) U/L Total Protein (6.4-8.2) g/dl Albumin (3.4-5.0) g/dl Globulin gm/dL Albumin/Globulin Ratio (1-2) TSH 3rd Generation (0.358-3.74) uIU/mL Urine Color Yellow (Yellow) Urine Appearance Slt cloudy H (Clear) Urine pH 5.5 (5.0-8.0) Ur Specific [place] > or = 1.030 (1.005-1.030) Urine Protein 1+ H (Negative) Urine Glucose (UA) Negative (Negative) Urine Ketones 2+ H (Negative) Urine Occult Blood Negative (Negative) Urine Nitrite Negative (Negative) Urine Bilirubin 2+ H (Negative) Urine Urobilinogen 0.2 (0.2-1.0) Ur Leukocyte Esterase Negative (Negative) Urine RBC 0-5 (0-5) /hpf Urine WBC 0-5 (0-5) /hpf Ur Epithelial Cells 10-20 H (0-5) /hpf Calcium Oxalate Crystal Moderate H (NONE) Urine Bacteria Few (FEW) /hpf Urine Mucus Moderate H (FEW) /hpf Urine HCG, Qual Negative (NEGATIVE) Urine Opiates Screen Presumptive positive H (NEGATIVE) Ur Buprenorphine Scrn Negative (NEGATIVE) Ur Oxycodone Screen Negative (NEGATIVE) Urine Methadone Screen Negative (NEGATIVE) Ur Propoxyphene Screen Negative (NEGATIVE) Ur Barbiturates Screen Negative (NEGATIVE) Ur Tricyclics Screen Negative (NEGATIVE) Ur Phencyclidine Scrn Negative (NEGATIVE) Ur Amphetamine Screen Negative (NEGATIVE) U Methamphetamines Scrn Negative (NEGATIVE) U Benzodiazepines Scrn Presumptive positive H (NEGATIVE) U Cocaine Metab Screen Negative (NEGATIVE) U Marijuana (THC) Screen Negative (NEGATIVE) Ethyl Alcohol (0.00) gm% 07/07/17 07/07/17 Range/Units 21:35 21:35 WBC 8.28 (3.98-10.04) K/mm3 RBC 4.46 (3.98-5.22) M/mm3 Hgb 13.9 (11.2-15.7) gm/L Hct 42.1 (34.1-44.9) % MCV 94.4 (79.4-94.8) fl MCH 31.2 (25.6-32.2) pg MCHC 33.0 (32.2-35.5) g/dl RDW Std Deviation 42.4 (36.4-46.3) fL Plt Count 388 H (182-369) K/mm3 MPV 9.3 L (9.4-12.3) fl Neutrophils % (Manual) 66 H (40-60) % Band Neutrophils % 0 (0-10) % Lymphocytes % (Manual) 29 (20-40) % Atypical Lymphs % 0 % Monocytes % (Manual) 4 (2-10) % Eosinophils % (Manual) 1 (0.7-5.8) % Basophils % (Manual) 0 L (0.1-1.2) Platelet Estimate Adequate RBC Morph Comment Normal Sodium 142 (136-145) mEq/L Potassium 3.1 L (3.5-5.1) mEq/L Chloride 104 (98-107) mEq/L Carbon Dioxide 25 (21-32) mEq/L Anion Gap 16.1 H (5-15) BUN 20 H (7-18) mg/dL Creatinine 0.9 (0.55-1.02) mg/dL Est Cr Clr Drug Dosing 86.84 mL/min Estimated GFR (MDRD) > 60 (>60) mL/min BUN/Creatinine Ratio 22.2 H (14-18) Glucose 92 (74-106) mg/dL Calcium 9.8 (8.5-10.1) mg/dL Total Bilirubin 0.3 (0.2-1.0) mg/dL AST 23 (15-37) U/L ALT 35 (14-59) U/L Alkaline Phosphatase 107 (46-116) U/L Total Protein 7.9 (6.4-8.2) g/dl Albumin 4.4 (3.4-5.0) g/dl Globulin 3.5 gm/dL Albumin/Globulin Ratio 1.3 (1-2) TSH 3rd Generation 6.663 H (0.358-3.74) uIU/mL Urine Color (Yellow) Urine Appearance (Clear) Urine pH (5.0-8.0) Ur Specific [place] (1.005-1.030) Urine Protein (Negative) Urine Glucose (UA) (Negative) Urine Ketones (Negative) Urine Occult Blood (Negative) Urine Nitrite (Negative) Urine Bilirubin (Negative) Urine Urobilinogen (0.2-1.0) Ur Leukocyte Esterase (Negative) Urine RBC (0-5) /hpf Urine WBC (0-5) /hpf Ur Epithelial Cells (0-5) /hpf Calcium Oxalate Crystal (NONE) Urine Bacteria (FEW) /hpf Urine Mucus (FEW) /hpf Urine HCG, Qual (NEGATIVE) Urine Opiates Screen (NEGATIVE) Ur Buprenorphine Scrn (NEGATIVE) Ur Oxycodone Screen (NEGATIVE) Urine Methadone Screen (NEGATIVE) Ur Propoxyphene Screen (NEGATIVE) Ur Barbiturates Screen (NEGATIVE) Ur Tricyclics Screen (NEGATIVE) Ur Phencyclidine Scrn (NEGATIVE) Ur Amphetamine Screen (NEGATIVE) U Methamphetamines Scrn (NEGATIVE) U Benzodiazepines Scrn (NEGATIVE) U Cocaine Metab Screen (NEGATIVE) U Marijuana (THC) Screen (NEGATIVE) Ethyl Alcohol 0.00 (0.00) gm% Re-Assessment/Re-Exam: Patient is very anxious and agitated on exam. She is well known to me through the clinic and this is not her typical happy/ bubbly behavior. Her antibiotics should not have caused this switch. She is on Singulair which certainly could be contributing. Will get basic lab work including CBC/CMP/TSH and urinalysis. Drug and alcohol screen. There has certainly been a change in patient's personality, however she is not a direct threat to herself or others at this point. Options were discussed with mom at length and will stop patient's Singulair. She will go to [facility] walk-in Monday at 8 AM for evaluation. I also think that mom is getting caregiver burnout. Discussed this with mother and she is agreeable. There is currently a new jail being built in [place] and mom has looked into placing patient there. In the meantime, mom will also put motion sensor alarms on the doors of the home. Urine is fairly concentrated on urinalysis, she is positive for benzodiazepines (she was given lorazepam in the ER on 2 occassions in the past week) and opiates (her cellulitis was treated with Coy recently). Potassium is slightly low at 3.1, advise high potassium diet and have this rechecked with PCP next week. TSH elevated at 6.663, she did have recent acute infection and cellulitis recheck this before considering medication. Patient will follow up with PCP in a week or certainly return to emergency room if needed. Departure - Departure Time of Disposition: 22:43 Disposition: Home, Self-Care 01 Condition: Fair Clinical Impression: Hallucinations, Borderline personality disorder in adult, Anxiety, Irritability and anger - Discharge Information Prescriptions: Fluconazole [Diflucan] 150 mg PO DAILY #2 tablet Referrals: Kelly Rivera PA-C [Primary Care Provider] - Forms: ED Department Discharge Additional Instructions: Stop the Singulair. If you have congestion/allergy symptoms you can take Zyrtec or use your Flonase nasal spray. I recommend that you have door alarms on all the doors to her home and possibly her bedroom at nighttime so that you will be alerted if she goes outside. [facility] walk-in appointment at 8 AM on Monday at [facility]. I did send Diflucan for yeast infection to [place] pharmacy. You also need to increase your daily fluid/water intake. Follow-up with your primary provider next week as well or return to the emergency room if needed.
[2017-07-07 20:56] VITALS: BP 122/73
== END 2017-07-07 22:55 | disposition home or self-care (01) ==
LOC: JD.ED 20:38
DX: F60.3 Borderline personality disorder (principal); R44.3 Hallucinations, unspecified; F41.9 Anxiety disorder, unspecified; R45.4 Irritability and anger; J45.909 Unspecified asthma, uncomplicated; K21.9 Gastro-esophageal reflux disease without esophagitis; F32.9 Major depressive disorder, single episode, unspecified; Z79.899 Other long term (current) drug therapy; Z88.2 Allergy status to sulfonamides; Z88.8 Allergy status to other drugs, medicaments and biological substances
CPT/HCPCS: 36415; 80053; 80306; 81001; 81025; 84443; 85025; 99285; G0480; 99284

== ENCOUNTER 2017-07-10 21:40 | Emergency (ER) | payer MEDICAID ==
[2017-07-10 22:00] VITALS: BP 114/73
[2017-07-10] MEDS ORDERED: Sodium Chloride 0.9% 10 ML Syringe FLUSH PRN (22:18)
[2017-07-10] MEDS ORDERED: Ondansetron 4 MG/2 ML SDV IVPUSH ONE (22:18)
[2017-07-10] MEDS ORDERED: Sodium Chloride 0.9% 1,000 ML IV ONE (22:18)
--- NOTE | 2017-07-10 22:19 | EDM.PDOC ---
ED HPI GENERAL MEDICAL PROBLEM - General Chief Complaint: Abdominal Pain Stated Complaint: POSSIBLE COLITUS FLARE UP BLEEDING Time Seen by Provider: 07/10/17 22:11 Source of Information: Reports: Patient History Limitations: Reports: No Limitations - History of Present Illness INITIAL COMMENTS - FREE TEXT/NARRATIVE: 41 y/o F with hx ulcerative colitis, behavioral/personality disorder, presents with vomiting and diarrhea. Started today. Has had about 3 episodes of nonbloody vomiting. Also has had a few episodes of watery diarrhea. States there is some blood in the stool. She started to feel sick today. Has had several recent healthcare visits for rash on arms that was treated with an antibiotic and with steroid cream. Is also on prednisone. No fever. Mild abdominal cramping, no pain. No sick contacts. No cough/SOB. No known exposure to contaminated food or water. No recent travel. - Related Data Allergies Allergy/AdvReac Type Severity Reaction Status Date / Time mesalamine Allergy Rash Verified 07/10/17 22:01 Sulfa (Sulfonamide Allergy Rash Verified 07/10/17 22:01 Antibiotics) Home Meds: Home Meds Escitalopram [Lexapro] 20 mg PO DAILY 07/27/13 [History] Ferrous Sulfate [Ferosul] 325 mg PO BID 07/27/13 [History] Fluticasone/Salmeterol [Advair 250-50 Diskus] 1 puff INH BID 07/27/13 [History] Mesalamine [Lialda] 2.4 gm PO DAILY 07/27/13 [History] Norgestimate-Ethinyl Estradiol [Ortho Tri-Cyclen] 1 each PO DAILY 07/27/13 [ History] PNV95/Ferrous Fumarate/FA [ Multivitamins] 1 each PO DAILY 07/27/13 [ History] buPROPion [Wellbutrin SR] 100 mg PO DAILY 07/27/13 [History] carBAMazepine [Carbamazepine] 300 mg PO BID 07/27/13 [History] Famotidine 20 mg PO BID 11/03/15 [History] Mupirocin Oint [Bactroban Oint] 22 gm TOP TID #1 tube 02/23/16 [Rx] Acetaminophen/HYDROcodone [[place] 325-5 MG] 1 tab PO Q6H PRN #14 tablet 07/06/17 [Rx] Fluconazole [Diflucan] 150 mg PO DAILY #2 tablet 07/07/17 [Rx] Ondansetron [Zofran ODT] 4 mg PO Q6H PRN #12 tab.dis 07/10/17 [Rx] predniSONE [predniSONE Dose Pack] 10 mg PO ASDIRECTED 07/10/17 [History] Past Medical History HEENT History: Reports: Impaired Vision Respiratory History: Reports: Asthma Gastrointestinal History: Reports: GERD, Other (See Below) Other Gastrointestinal History: colitis Neurological History: Reports: Migraines, Seizure Psychiatric History: Reports: Anxiety, Depression, Mood Swings, Other (See Below ) Other Psychiatric History: developmental delay, borderline personality disorder Dermatologic History: Reports: Other (See Below) Other Dermatologic History: MRSA vaginal - and outbreak under nails recently, dermatitis - Infectious Disease History Infectious Disease History: Reports: MRSA - Past Surgical History Female Surgical History: Reports: Other (See Below) Social & Family History - Family History Family Medical History: Noncontributory Cardiac: Reports: CAD Neurological: Reports: CVA Endocrine/Metabolic: Reports: Diabetes, type II Oncologic: Reports: Breast, Colon - Tobacco Use Smoking Status *Q: Never Smoker Second Hand Smoke Exposure: No - Caffeine Use Caffeine Use: Reports: Soda - Recreational Drug Use Recreational Drug Use: No - Living Situation & Occupation Occupation: Other ED ROS GENERAL - Review of Systems Review Of Systems: See Below Constitutional: Reports: Chills. Denies: Fever HEENT: Reports: No Symptoms Respiratory: Denies: Shortness of Breath, Cough Cardiovascular: Denies: Chest Pain Endocrine: Denies: No Symptoms GI/Abdominal: Reports: Diarrhea, Nausea, Vomiting : Reports: No Symptoms Musculoskeletal: Reports: No Symptoms Skin: Reports: No Symptoms Neurological: Reports: No Symptoms ED EXAM, GI/ABD - Physical Exam Exam: See Below Exam Limited By: No Limitations General Appearance: Alert, WD/WN, No Apparent Distress Eyes: Bilateral: Normal Appearance Ears: Normal External Exam Nose: Normal Inspection Throat/Mouth: Normal Inspection, Normal Oropharynx, Normal Voice Head: Atraumatic, Normocephalic Neck: Normal Inspection, Supple, Non-Tender Respiratory/Chest: No Respiratory Distress, Lungs Clear, Normal Breath Sounds, No Accessory Muscle Use, Chest Non-Tender Cardiovascular: Normal Peripheral Pulses, Regular Rate, Rhythm, No Murmur GI/Abdominal Exam: Soft, Non-Tender, No Distention. No: Rebound Back Exam: Normal Inspection. No: CVA Tenderness (L), CVA Tenderness (R) Extremities: Normal Inspection Neurological: Alert, Oriented, Normal Cognition, No Motor/Sensory Deficits Psychiatric: Normal Affect, Normal Mood Skin Exam: Warm, Dry, Intact, Normal Color, No Rash Course - Vital Signs Last Recorded V/S: Last Vital Signs Temp 36.5 C 07/10/17 21:50 Pulse 80 07/10/17 21:50 Resp 18 07/10/17 21:50 BP 114/73 07/10/17 21:50 Pulse Ox 98 07/10/17 21:50 - Orders/Labs/Meds Orders: Active Orders 24 hr Category Date Time Status Peripheral IV Care [RC] . DIRECTED Care 07/10/17 22:18 Active C DIFFICILE BY PCR W/NAP1 [MOLEC] Stat Lab 07/10/17 22:52 Ordered Sodium Chloride 0.9% [Saline Flush] Med 07/10/17 22:18 Active 10 ml FLUSH ASDIRECTED PRN Peripheral IV Insertion Adult [OM.PC] Routine Oth 07/10/17 22:18 Ordered Medication Orders Sodium Chloride (Saline Flush) 10 ml FLUSH ASDIRECTED PRN PRN Reason: Keep Vein Open Last Admin: 07/10/17 22:26 Dose: 10 ml Labs: Laboratory Tests 07/10/17 07/10/17 Range/Units 22:20 22:20 WBC 6.90 (3.98-10.04) K/mm3 RBC 4.13 (3.98-5.22) M/mm3 Hgb 13.1 (11.2-15.7) gm/L Hct 39.2 (34.1-44.9) % MCV 94.9 H (79.4-94.8) fl MCH 31.7 (25.6-32.2) pg MCHC 33.4 (32.2-35.5) g/dl RDW Std Deviation 42.1 (36.4-46.3) fL Plt Count 355 (182-369) K/mm3 MPV 9.4 (9.4-12.3) fl Neut % (Auto) 68.5 (34.0-71.1) % Lymph % (Auto) 21.4 (19.3-51.7) % [place] % (Auto) 8.8 (4.7-12.5) % Eos % (Auto) 0.9 (0.7-5.8) Baso % (Auto) 0.3 (0.1-1.2) % Neut # (Auto) 4.72 (1.56-6.13) K/mm3 Lymph # (Auto) 1.48 (1.18-3.74) K/mm3 [place] # (Auto) 0.61 H (0.24-0.36) K/mm3 Eos # (Auto) 0.06 (0.04-0.36) K/mm3 Baso # (Auto) 0.02 (0.01-0.08) K/mm3 Sodium 143 (136-145) mEq/L Potassium 3.3 L (3.5-5.1) mEq/L Chloride 105 (98-107) mEq/L Carbon Dioxide 30 (21-32) mEq/L Anion Gap 11.3 (5-15) BUN 20 H (7-18) mg/dL Creatinine 1.0 (0.55-1.02) mg/dL Est Cr Clr Drug Dosing 9.10 mL/min Estimated GFR (MDRD) > 60 (>60) mL/min BUN/Creatinine Ratio 20.0 H (14-18) Glucose 128 H (74-106) mg/dL Calcium 9.3 (8.5-10.1) mg/dL Magnesium 1.8 (1.8-2.4) mg/dl Total Bilirubin 0.2 (0.2-1.0) mg/dL AST 19 (15-37) U/L ALT 32 (14-59) U/L Alkaline Phosphatase 96 (46-116) U/L Total Protein 7.1 (6.4-8.2) g/dl Albumin 3.8 (3.4-5.0) g/dl Globulin 3.3 gm/dL Albumin/Globulin Ratio 1.2 (1-2) Lipase 117 (73-393) U/L Meds: Medications Generic Name Dose Route Start Last Admin Trade Name Freq PRN Reason Stop Dose Admin Sodium Chloride 10 ml 07/10/17 22:18 07/10/17 22:26 Saline Flush FLUSH 10 ml ASDIRECTED PRN Administration Keep Vein Open Discontinued Medications Generic Name Dose Route Start Last Admin Trade Name Freq PRN Reason Stop Dose Admin Sodium Chloride 1,000 mls @ 1,000 mls/hr 07/10/17 22:18 07/10/17 22:26 Normal Saline IV 07/10/17 23:17 1,000 mls/hr ONETIME ONE Administration Ondansetron HCl 4 mg 07/10/17 22:18 07/10/17 22:26 Zofran IVPUSH 07/10/17 22:19 4 mg ONETIME ONE Administration Potassium Chloride 40 meq 07/10/17 23:04 07/10/17 23:10 Klor-Con M20 PO 07/10/17 23:05 40 meq ONETIME ONE Administration - Re-Assessments/Exams Free Text/Narrative Re-Assessment/Exam: 07/10/17 23:29 Feeling better after fluids/zofran. No further vomiting in the ED. Suspect viral syndrome given vomiting/diarrhea and minimal abdominal pain rather than ulcerative colitis flare. Discussed return precautions. Has PCP f/u scheduled for 3 days from now. 07/10/17 23:30 Departure - Departure Time of Disposition: 23:20 Disposition: Home, Self-Care 01 Clinical Impression: Diarrhea Qualifiers: Diarrhea type: presumed infectious Qualified Code(s): R19.7 - Diarrhea, unspecified Vomiting Qualifiers: Vomiting type: unspecified Vomiting Intractability: non-intractable Nausea presence: with nausea Qualified Code(s): R11.2 - Nausea with vomiting, unspecified - Discharge Information Prescriptions: Ondansetron [Zofran ODT] 4 mg PO Q6H PRN #12 tab.dis PRN Reason: Nausea Instructions: Nausea and Vomiting, Adult, [id number], Diarrhea, Adult, Easy- to-Read Referrals: Kelly Rivera PA-C [Primary Care Provider] - Forms: ED Department Discharge Additional Instructions: 1. Drink plenty of fluids 2. Clear liquids only until improving, then advance diet starting with bland foods 3. Take ondansetron as needed for nausea 4. Return to the ED if worse, especially if you have several episodes of vomiting without keeping liquids down, if you have worsening abdominal pain, or any other concerning symptoms 5. Follow up with [facility] as needed - My Orders Last 24 Hours: My Active Orders 07/10/17 22:18 Peripheral IV Care [RC] . DIRECTED Sodium Chloride 0.9% [Saline Flush] 10 ml FLUSH ASDIRECTED PRN Peripheral IV Insertion Adult [OM.PC] Routine 07/10/17 22:52 C DIFFICILE BY PCR W/NAP1 [MOLEC] Stat - Assessment/Plan Last 24 Hours: My Active Orders 07/10/17 22:18 Peripheral IV Care [RC] . DIRECTED Sodium Chloride 0.9% [Saline Flush] 10 ml FLUSH ASDIRECTED PRN Peripheral IV Insertion Adult [OM.PC] Routine 07/10/17 22:52 C DIFFICILE BY PCR W/NAP1 [MOLEC] Stat
[2017-07-10] MEDS ORDERED: Potassium Chloride 20 MEQ Tab.ER PO ONE (23:04)
== END 2017-07-10 23:41 | disposition home or self-care (01) ==
LOC: JD.ED 21:40
DX: R11.2 Nausea with vomiting, unspecified (principal); R19.7 Diarrhea, unspecified; Z88.2 Allergy status to sulfonamides; Z88.8 Allergy status to other drugs, medicaments and biological substances; Z79.899 Other long term (current) drug therapy
CPT/HCPCS: 36415; 80053; 83690; 83735; 85025; 96361; 96374; 99284; A9270; J2405; J7040; J7050

== ENCOUNTER 2017-07-25 21:25 | Emergency (ER) | payer MEDICAID ==
[2017-07-25 21:36] VITALS: BP 129/86
[2017-07-25] MEDS ORDERED: Sodium Chloride 0.9% 10 ML Syringe FLUSH PRN (22:04)
[2017-07-25] MEDS ORDERED: LORazepam 2 MG/ML SDV IVPUSH ONE (22:05)
[2017-07-25] MEDS ORDERED: Haloperidol Lactate 5 MG/ML SDV IVPUSH ONE (22:05)
[2017-07-25] MEDS ORDERED: LORazepam 2 MG/ML SDV IM ONE (22:08)
[2017-07-25] MEDS ORDERED: Haloperidol Lactate 5 MG/ML SDV IM ONE (22:08)
--- NOTE | 2017-07-25 22:10 | EDM.PDOC ---
ED HPI GENERAL MEDICAL PROBLEM - General Chief Complaint: Behavioral/Psych Stated Complaint: SUICIDAL Time Seen by Provider: 07/25/17 22:04 Source of Information: Reports: Patient, Family (mother and uncles.) History Limitations: Reports: Uncooperative - History of Present Illness INITIAL COMMENTS - FREE TEXT/NARRATIVE: 41-year-old female presents to the ED in the accompaniment of her mother and 2 uncles. From what mother can tell me Jadens mental status has continued to deteriorate since Donovan time. She has new onset psychotic behaviors and particularly bad the last 3 weeks and severe the last 3 days. Today she was going to jump out of a second story window at home and effort in her life. She has voices talking to her all the time and she prefers to try keep her ears covered to try and muffled voices. She is so distraught she's not able to comment on what the voices are telling her. Mother reports that she's often talking about denominational connotations. She has some flight of ideas word salad. Not able to carry on a conversation with her at this time and I met her several times in the past. She is on small dose of risperidone 0.5 mg. She has a chronic seizure disorder and is on Tegretol for this. Of note she is in and able group setting during the day but lives with her parents at home. She does not green party or take street drugs she has never used alcohol. Onset: Gradual (Gradual progression of psychotic behaviors over the last 3 months. His medications have been made but have not been helpful and she is particularly much worse the last 3 weeks.) Duration: Week(s): (Gradually worsening), Getting Worse ( deterioration in mental health over the last 12 weeks.) Quality: Reports: Other Severity: Severe (Acutely psychotic) Improves with: Reports: None Worsens with: Reports: None Context: Denies: Exercise, Lifting, Sick Contact, Trauma, Other Associated Symptoms: Reports: Other (Eating poorly not sleeping well). 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 (see below) (No new changes in medications.) - Related Data Allergies Allergy/AdvReac Type Severity Reaction Status Date / Time mesalamine Allergy Rash Verified 07/25/17 21:33 Sulfa (Sulfonamide Allergy Rash Verified 07/25/17 21:33 Antibiotics) Home Meds: Home Meds Escitalopram [Lexapro] 20 mg PO DAILY 07/27/13 [History] Ferrous Sulfate [Ferosul] 325 mg PO BID 07/27/13 [History] Fluticasone/Salmeterol [Advair 250-50 Diskus] 1 puff INH BID 07/27/13 [History] Mesalamine [Lialda] 2.4 gm PO DAILY 07/27/13 [History] Norgestimate-Ethinyl Estradiol [Ortho Tri-Cyclen] 1 each PO DAILY 07/27/13 [ History] PNV95/Ferrous Fumarate/FA [ Multivitamins] 1 each PO DAILY 07/27/13 [ History] buPROPion [Wellbutrin SR] 100 mg PO DAILY 07/27/13 [History] carBAMazepine [Carbamazepine] 300 mg PO BID 07/27/13 [History] Famotidine 20 mg PO BID 11/03/15 [History] LORazepam [Ativan] 0.5 mg PO BID PRN 07/25/17 [History] Proventil Inhaler. 2 puff INH ASDIRECTED PRN 07/25/17 [History] SUMAtriptan 100 mg PO ASDIRECTED PRN 07/25/17 [History] carBAMazepine [Carbamazepine] 200 mg PO DAILY 07/25/17 [History] risperiDONE [Risperidone] 0.5 mg PO BEDTIME 07/25/17 [History] traZODone HCl [Trazodone HCl] 75 mg PO BEDTIME 07/25/17 [History] Past Medical History HEENT History: Reports: Impaired Vision Respiratory History: Reports: Asthma Gastrointestinal History: Reports: GERD, Other (See Below) Other Gastrointestinal History: colitis Neurological History: Reports: Migraines, Seizure Psychiatric History: Reports: Anxiety, Depression, Mood Swings, Other (See Below ) Other Psychiatric History: developmental delay, borderline personality disorder Dermatologic History: Reports: Other (See Below) Other Dermatologic History: MRSA vaginal - and outbreak under nails recently, dermatitis - Infectious Disease History Infectious Disease History: Reports: MRSA - Past Surgical History Female Surgical History: Reports: Other (See Below) Social & Family History - Family History Family Medical History: Noncontributory Cardiac: Reports: CAD Neurological: Reports: CVA Endocrine/Metabolic: Reports: Diabetes, type II Oncologic: Reports: Breast, Colon - Tobacco Use Smoking Status *Q: Never Smoker Second Hand Smoke Exposure: No - Caffeine Use Caffeine Use: Reports: Soda - Recreational Drug Use Recreational Drug Use: No - Living Situation & Occupation Occupation: Other ED ROS GENERAL - Review of Systems Review Of Systems: See Below (History obtained from the mother as the patient cannot provide any useful answers.) Constitutional: Reports: Decreased Appetite, Weight Loss. Denies: Fever, Chills , Malaise, Weakness, Fatigue HEENT: Reports: No Symptoms Respiratory: Reports: No Symptoms Cardiovascular: Reports: No Symptoms Endocrine: Reports: No Symptoms GI/Abdominal: Reports: No Symptoms : Reports: Other (Frequent urinary tract infections.) Musculoskeletal: Reports: Back Pain (Occasional back pain) Skin: Reports: No Symptoms Neurological: Reports: Other (Has a known seizure disorder that is well- controlled with Tegretol.) Psychiatric: Reports: Anxiety, Hallucinations (Recently developed auditory hallucinations), Suicidal Ideation (Attempted suicide tonight by trying to drop out of a two-story window of their home.) Hematologic/Lymphatic: Reports: No Symptoms Immunologic: Reports: No Symptoms - Physical Exam Exam: See Below Exam Limited By: Altered Mental Status (Patient is severely psychotic rambling and you are not able to carry on a conversation with her. She is covering her ears and is exhibiting obvious auditory hallucinations. Speaks out loud in a loud voice she is exhibiting tangential thought processes and word salad.) General Appearance: Alert, Severe Distress (She seems to be severely distressed at this time.) Eye Exam: Bilateral Eye: Normal Inspection Throat/Mouth: Normal Inspection, Normal Lips, Normal Oropharynx Head Exam: Atraumatic, Normocephalic Neck: Normal Inspection, Supple, Non-Tender, Full Range of Motion. No: Lymphadenopathy (L), Lymphadenopathy (R) Respiratory/Chest: No Respiratory Distress, Lungs Clear, Normal Breath Sounds, No Accessory Muscle Use Cardiovascular: Normal Peripheral Pulses, Regular Rate, Rhythm, No Murmur GI/Abdominal: Normal Bowel Sounds, Soft, Non-Tender, No Organomegaly Neuro Exam (Abbreviated): Confused, Disoriented, Other (Severely agitated due to psychosis.) Psychiatric: Other (Acute psychosis with auditory hallucinations) Skin Exam: Warm, Dry, Intact, Normal Color, No Rash EKG INTERPRETATION EKG Date: 07/26/17 Time: 00:00 Rhythm: NSR Rate (Beats/Min): 77 Shepherd: Normal P-Wave: Present QRS: RBBB (Incomplete right bundle branch block pattern) ST-T: Normal QT: Prolonged (Minimally prolonged) EKG Interpretation Comments: Borderline ECG Course - Vital Signs Last Recorded V/S: Last Vital Signs Temp 36.2 C 07/25/17 21:33 Pulse 93 07/25/17 21:33 Resp 17 07/25/17 21:33 BP 129/86 07/25/17 21:33 Pulse Ox 100 07/25/17 21:33 - Orders/Labs/Meds Orders: Active Orders 24 hr Category Date Time Status EKG Documentation Completion [RC] STAT Care 07/25/17 22:49 Active Peripheral IV Care [RC] . DIRECTED Care 07/25/17 22:04 Active DRUG SCREEN, URINE [URCHEM] Stat Lab 07/25/17 23:25 Ordered Peripheral IV Insertion Adult [OM.PC] Stat Oth 07/25/17 22:04 Ordered Labs: Laboratory Tests 07/25/17 07/25/17 07/25/17 Range/Units 23:20 23:20 23:20 WBC 6.24 (3.98-10.04) K/mm3 RBC 3.74 L (3.98-5.22) M/mm3 Hgb 12.0 (11.2-15.7) gm/L Hct 36.2 (34.1-44.9) % MCV 96.8 H (79.4-94.8) fl MCH 32.1 (25.6-32.2) pg MCHC 33.1 (32.2-35.5) g/dl RDW Std Deviation 43.6 (36.4-46.3) fL Plt Count 211 (182-369) K/mm3 MPV 9.7 (9.4-12.3) fl Neutrophils % (Manual) 71 H (40-60) % Band Neutrophils % 0 (0-10) % Lymphocytes % (Manual) 22 (20-40) % Atypical Lymphs % 0 % Monocytes % (Manual) 7 (2-10) % Eosinophils % (Manual) 0 L (0.7-5.8) % Basophils % (Manual) 0 L (0.1-1.2) Platelet Estimate Adequate RBC Morph Comment Normal Sodium 146 H (136-145) mEq/L Potassium 3.3 L (3.5-5.1) mEq/L Chloride 110 H (98-107) mEq/L Carbon Dioxide 23 (21-32) mEq/L Anion Gap 16.3 H (5-15) BUN 27 H (7-18) mg/dL Creatinine 0.9 (0.55-1.02) mg/dL Est Cr Clr Drug Dosing 86.84 mL/min Estimated GFR (MDRD) > 60 (>60) mL/min BUN/Creatinine Ratio 30.0 H (14-18) Glucose 122 H (74-106) mg/dL Calcium 9.2 (8.5-10.1) mg/dL Total Bilirubin 0.5 (0.2-1.0) mg/dL AST 20 (15-37) U/L ALT 26 (14-59) U/L Alkaline Phosphatase 73 (46-116) U/L Total Protein 6.7 (6.4-8.2) g/dl Albumin 3.8 (3.4-5.0) g/dl Globulin 2.9 gm/dL Albumin/Globulin Ratio 1.3 (1-2) TSH 3rd Generation 5.421 H (0.358-3.74) uIU/mL HCG, Qual Negative (NEGATIVE) Urine Opiates Screen (NEGATIVE) Ur Buprenorphine Scrn (NEGATIVE) Ur Oxycodone Screen (NEGATIVE) Urine Methadone Screen (NEGATIVE) Ur Propoxyphene Screen (NEGATIVE) Ur Barbiturates Screen (NEGATIVE) Carbamazepine 3.1 L (4.0-12.0) ug/mL Ur Tricyclics Screen (NEGATIVE) Ur Phencyclidine Scrn (NEGATIVE) Ur Amphetamine Screen (NEGATIVE) U Methamphetamines Scrn (NEGATIVE) U Benzodiazepines Scrn (NEGATIVE) U Cocaine Metab Screen (NEGATIVE) U Marijuana (THC) Screen (NEGATIVE) Ethyl Alcohol 0.00 (0.00) gm% 07/25/17 Range/Units 23:25 WBC (3.98-10.04) K/mm3 RBC (3.98-5.22) M/mm3 Hgb (11.2-15.7) gm/L Hct (34.1-44.9) % MCV (79.4-94.8) fl MCH (25.6-32.2) pg MCHC (32.2-35.5) g/dl RDW Std Deviation (36.4-46.3) fL Plt Count (182-369) K/mm3 MPV (9.4-12.3) fl Neutrophils % (Manual) (40-60) % Band Neutrophils % (0-10) % Lymphocytes % (Manual) (20-40) % Atypical Lymphs % % Monocytes % (Manual) (2-10) % Eosinophils % (Manual) (0.7-5.8) % Basophils % (Manual) (0.1-1.2) Platelet Estimate RBC Morph Comment Sodium (136-145) mEq/L Potassium (3.5-5.1) mEq/L Chloride (98-107) mEq/L Carbon Dioxide (21-32) mEq/L Anion Gap (5-15) BUN (7-18) mg/dL Creatinine (0.55-1.02) mg/dL Est Cr Clr Drug Dosing mL/min Estimated GFR (MDRD) (>60) mL/min BUN/Creatinine Ratio (14-18) Glucose (74-106) mg/dL Calcium (8.5-10.1) mg/dL Total Bilirubin (0.2-1.0) mg/dL AST (15-37) U/L ALT (14-59) U/L Alkaline Phosphatase (46-116) U/L Total Protein (6.4-8.2) g/dl Albumin (3.4-5.0) g/dl Globulin gm/dL Albumin/Globulin Ratio (1-2) TSH 3rd Generation (0.358-3.74) uIU/mL HCG, Qual (NEGATIVE) Urine Opiates Screen Negative (NEGATIVE) Ur Buprenorphine Scrn Negative (NEGATIVE) Ur Oxycodone Screen Negative (NEGATIVE) Urine Methadone Screen Negative (NEGATIVE) Ur Propoxyphene Screen Negative (NEGATIVE) Ur Barbiturates Screen Negative (NEGATIVE) Carbamazepine (4.0-12.0) ug/mL Ur Tricyclics Screen Negative (NEGATIVE) Ur Phencyclidine Scrn Negative (NEGATIVE) Ur Amphetamine Screen Negative (NEGATIVE) U Methamphetamines Scrn Negative (NEGATIVE) U Benzodiazepines Scrn Presumptive positive H (NEGATIVE) U Cocaine Metab Screen Negative (NEGATIVE) U Marijuana (THC) Screen Negative (NEGATIVE) Ethyl Alcohol (0.00) gm% Meds: Medications Discontinued Medications Generic Name Dose Route Start Last Admin Trade Name Jim PRN Reason Stop Dose Admin Haloperidol 5 mg 07/25/17 23:33 07/25/17 23:37 Haldol PO 07/25/17 23:34 5 mg ONETIME ONE Administration Haloperidol Lactate 5 mg 07/25/17 22:05 Haldol IVPUSH 07/25/17 22:06 ONETIME ONE Haloperidol Lactate 10 mg 07/25/17 22:08 07/25/17 22:15 Haldol IM 07/25/17 22:09 10 mg ONETIME ONE Administration Lorazepam 2 mg 07/25/17 22:05 Ativan IVPUSH 07/25/17 22:06 ONETIME ONE Lorazepam 2 mg 07/25/17 22:08 07/25/17 22:18 Ativan IM 07/25/17 22:09 2 mg ONETIME ONE Administration Lorazepam 2 mg 07/25/17 23:33 07/25/17 23:37 Ativan PO 07/25/17 23:34 2 mg ONETIME ONE Administration Sodium Chloride 10 ml 07/25/17 22:04 Saline Flush FLUSH ASDIRECTED PRN Keep Vein Open - Radiology Interpretation Free Text/Narrative:: 41-year-old female presents the ED with her mother whom she lives with. She lives at home with both parents. Daniela is mentally handicapped and suffers from a seizure disorder. Was lived with her parents. During the daytime she is involved with shelter setting personnel but always stays with parents at night. She does not use alcohol or street drugs. Mother reports her mental status has gradually deteriorated since Donovan. She's had additional antidepressants added to her treatment program which include Lexapro Wellbutrin and trazodone. She is also on a low dose of risperidone 0.5 mg at bedtime to help sleep. She has never exhibited psychotic behavior up until now. This suggests that current psychosis is secondary to antidepressant medications ringing out manic behavior with psychosis. Patient is exhibiting auditory hallucinations on examination. She prefers to cover her ears and yells out loud speaking to no one in particular i.e. trying to answer voices in her head. Speaks tangentially with word salad. She required intramuscular injection of Haldol 10 mg and Ativan 2 mg to get close enough to her to try and obtain labs and urinalysis. She will require treatment at a psychiatric hospital due to acute psychotic state. - Re-Assessments/Exams Free Text/Narrative Re-Assessment/Exam: 07/25/17 23:00 Patient has calmed down considerably but she still wide awake and bushy tailed and rather uncooperative. She would not consent to blood draw until threatened with further IM dosing of medication. 07/26/17 00:12 Labs reveal a normal white count at 6.24 with normal differential at 71% neutrophils with no bands. Hemoglobin is 12.0 with hematocrit of 36.2. MCV is mildly elevated at 96.8. This may mean she is a little short on B12 for Lisa Mari. Sodium was 146 potassium slightly low at 3.3. Chloride 110 with bicarbonate of 23. And a gap minimally elevated at 16.3. BUNs 27 with a creatinine of 0.9. Glucose is 122. Calcium is 9.2. Liver function is normal. TSH is mildly elevated at 5.4-1. I mild subclinical hypothyroidism. HCG is negative. Her current Tegretol level is low at 3.1. Normal is 4-12 in our lab. However apparently she has just missed the last nights medication dosage. Therefore the current dosage of Tegretol appears to be controlling her seizures fairly well. Urine drug screen is positive for benzodiazepines which we gave to her. Blood alcohol is 0. 07/26/17 00:[address] Laura button inspector psychiatrist at [facility] in [place]. Once they have received the committal paperwork and are happy with it they will call us back and gradient exception of care. Tentatively general be transported by ground ambulance from [facility]. 07/26/17 00:30: Of note I spoke with mother in regards to medications. It appears that she's been on Lexapro and Wellbutrin for a lengthy period of time like a year. The risperidone 0.5 mg and the trazodone were just prescribed yesterday after seeing her primary care daughter. Therefore she's not ever taking these medications. 07/26/17 01:00 Finally got approval from [facility] in [place] to accept care of this patient. She will be transported by ground ambulance from [facility]. Committal paperwork has been completed and notarized and signed by states attorney law clerk. Departure - Departure Time of Disposition: 00:45 Disposition: DC/Tfer to Psych Hosp/Unit 65 Condition: Fair Clinical Impression: Acute psychosis, Gianna - Discharge Information Referrals: Kelly Rivera PA-C [Primary Care Provider] - Forms: ED Department Discharge Additional Instructions: Patient is to be transported to [facility] in [facility] psychiatric service under the care of Dr. Laura - My Orders Last 24 Hours: My Active Orders 07/25/17 22:04 Peripheral IV Care [RC] . DIRECTED Peripheral IV Insertion Adult [OM.PC] Stat 07/25/17 22:49 EKG Documentation Completion [RC] STAT 07/25/17 23:25 DRUG SCREEN, URINE [URCHEM] Stat - Assessment/Plan Last 24 Hours: My Active Orders 07/25/17 22:04 Peripheral IV Care [RC] . DIRECTED Peripheral IV Insertion Adult [OM.PC] Stat 07/25/17 22:49 EKG Documentation Completion [RC] STAT 07/25/17 23:25 DRUG SCREEN, URINE [URCHEM] Stat
[2017-07-25] MEDS ORDERED: Haloperidol 5 MG Tab PO ONE (23:33)
[2017-07-25] MEDS ORDERED: LORazepam 1 MG Tab PO ONE (23:33)
== END 2017-07-26 01:00 ==
LOC: JD.ED 21:25
DX: F23 Brief psychotic disorder (principal); F32.9 Major depressive disorder, single episode, unspecified; F41.9 Anxiety disorder, unspecified; Z79.899 Other long term (current) drug therapy
CPT/HCPCS: 36415; 80053; 80156; 80306; 84443; 84703; 85025; 93005; 96372; 99285; A9270; G0480; J1630; J2060; 93010

== ENCOUNTER 2017-09-04 09:59 | Emergency (ER) | payer MEDICAID ==
[2017-09-04 10:25] VITALS: BP 104/64
[2017-09-04] MEDS ORDERED: Sodium Chloride 0.9% 10 ML Syringe FLUSH PRN (10:41)
[2017-09-04] MEDS ORDERED: Sodium Chloride 0.9% 1,000 ML IV STA (10:41)
[2017-09-04] MEDS ORDERED: HYDROmorphone 0.5 MG/0.5 ML SYRINGE IVPUSH ONE (10:42)
--- NOTE | 2017-09-04 11:13 | EDM.PDOC ---
ED HPI GENERAL MEDICAL PROBLEM - General Chief Complaint: Abdominal Pain Stated Complaint: COLITIS FLARE UP AND BLOOD IN STOOLS Time Seen by Provider: 09/04/17 10:25 Source of Information: Reports: Patient History Limitations: Reports: No Limitations - History of Present Illness INITIAL COMMENTS - FREE TEXT/NARRATIVE: The patient presents with lower abdominal pain and bloody diarrhea. This has been going on for a few days. She has a history of colitis and her and her mother are worried she is having another flair. She has been under lots of stress lately. She was admitted to [facility] in [place] last month for a psychotic episode and that was very hard on her. She has no nausea or vomiting at this time. She has no dysuria. She has no fever, chills, cough, chest pain or shortness of breath. Onset: Gradual Duration: Day(s): Location: Reports: Abdomen Quality: Reports: Sharp Severity: Moderate Improves with: Reports: None Worsens with: Reports: None Associated Symptoms: Reports: No Other Symptoms Abdominal Pain Score (Numeric/FACES): 10 - Related Data Allergies Allergy/AdvReac Type Severity Reaction Status Date / Time mesalamine Allergy Rash Verified 09/04/17 10:25 Sulfa (Sulfonamide Allergy Rash Verified 09/04/17 10:25 Antibiotics) Home Meds: Home Meds Escitalopram [Lexapro] 20 mg PO DAILY 07/27/13 [History] Ferrous Sulfate [Ferosul] 325 mg PO BID 07/27/13 [History] Fluticasone/Salmeterol [Advair 250-50 Diskus] 1 puff INH BID 07/27/13 [History] Mesalamine [Lialda] 2.4 gm PO DAILY 07/27/13 [History] Norgestimate-Ethinyl Estradiol [Ortho Tri-Cyclen] 1 each PO DAILY 07/27/13 [ History] PNV95/Ferrous Fumarate/FA [ Multivitamins] 1 each PO DAILY 07/27/13 [ History] buPROPion [Wellbutrin SR] 100 mg PO DAILY 07/27/13 [History] carBAMazepine [Carbamazepine] 300 mg PO BID 07/27/13 [History] Famotidine 20 mg PO BID 11/03/15 [History] LORazepam [Ativan] 0.5 mg PO BID PRN 07/25/17 [History] Proventil Inhaler. 2 puff INH ASDIRECTED PRN 07/25/17 [History] SUMAtriptan 100 mg PO ASDIRECTED PRN 07/25/17 [History] carBAMazepine [Carbamazepine] 200 mg PO DAILY 07/25/17 [History] risperiDONE [Risperidone] 0.5 mg PO BEDTIME 07/25/17 [History] traZODone HCl [Trazodone HCl] 75 mg PO BEDTIME 07/25/17 [History] predniSONE [Prednisone] 40 mg PO DAILY #14 tablet 09/04/17 [Rx] Past Medical History HEENT History: Reports: Impaired Vision Respiratory History: Reports: Asthma Gastrointestinal History: Reports: GERD, Other (See Below) Other Gastrointestinal History: colitis Neurological History: Reports: Migraines, Seizure Psychiatric History: Reports: Anxiety, Depression, Mood Swings, Other (See Below ) Other Psychiatric History: developmental delay, borderline personality disorder Dermatologic History: Reports: Other (See Below) Other Dermatologic History: MRSA vaginal - and outbreak under nails recently, dermatitis - Infectious Disease History Infectious Disease History: Reports: MRSA - Past Surgical History Female Surgical History: Reports: Other (See Below) Social & Family History - Family History Family Medical History: Noncontributory Cardiac: Reports: CAD Neurological: Reports: CVA Endocrine/Metabolic: Reports: Diabetes, type II Oncologic: Reports: Breast, Colon - Tobacco Use Smoking Status *Q: Never Smoker - Caffeine Use Caffeine Use: Reports: None - Recreational Drug Use Recreational Drug Use: No - Living Situation & Occupation Occupation: Other ED ROS GENERAL - Review of Systems Review Of Systems: See Below Constitutional: Reports: No Symptoms HEENT: Reports: No Symptoms Respiratory: Reports: No Symptoms Cardiovascular: Reports: No Symptoms Endocrine: Reports: No Symptoms GI/Abdominal: Reports: Abdominal Pain, Black Stool. Denies: Nausea, Vomiting : Reports: No Symptoms Musculoskeletal: Reports: No Symptoms ED EXAM, GI/ABD - Physical Exam Exam: See Below Exam Limited By: No Limitations General Appearance: Alert, No Apparent Distress Ears: Normal External Exam Nose: Normal Inspection Head: Atraumatic, Normocephalic Neck: Normal Inspection Respiratory/Chest: No Respiratory Distress, Lungs Clear, Normal Breath Sounds Cardiovascular: Regular Rate, Rhythm, No Edema, No Murmur GI/Abdominal Exam: Soft, No Organomegaly, No Mass, Other (Mild to moderate pain upon palpation to the lower abdomen) Course - Vital Signs Last Recorded V/S: Last Vital Signs Temp 99.1 F 09/04/17 10:19 Pulse 62 09/04/17 10:19 Resp 16 09/04/17 10:19 BP 104/64 09/04/17 10:19 Pulse Ox 99 09/04/17 10:19 - Orders/Labs/Meds Orders: Active Orders 24 hr Category Date Time Status Peripheral IV Care [RC] . DIRECTED Care 09/04/17 10:41 Active UA W/MICROSCOPIC [URIN] Stat Lab 09/04/17 11:00 Ordered Sodium Chloride 0.9% [Saline Flush] Med 09/04/17 10:41 Active 10 ml FLUSH ASDIRECTED PRN Peripheral IV Insertion Adult [OM.PC] Stat Oth 09/04/17 10:41 Ordered Medication Orders Sodium Chloride (Saline Flush) 10 ml FLUSH ASDIRECTED PRN PRN Reason: Keep Vein Open Last Admin: 09/04/17 11:07 Dose: 10 ml Labs: Laboratory Tests 09/04/17 09/04/17 09/04/17 Range/Units 11:00 11:20 11:20 WBC 5.26 (3.98-10.04) K/mm3 RBC 3.65 L (3.98-5.22) M/mm3 Hgb 11.5 (11.2-15.7) gm/L Hct 35.9 (34.1-44.9) % MCV 98.4 H (79.4-94.8) fl MCH 31.5 (25.6-32.2) pg MCHC 32.0 L (32.2-35.5) g/dl RDW Std Deviation 45.1 (36.4-46.3) fL Plt Count 237 (182-369) K/mm3 MPV 9.7 (9.4-12.3) fl Neut % (Auto) 70.4 (34.0-71.1) % Lymph % (Auto) 16.5 L (19.3-51.7) % [place] % (Auto) 9.1 (4.7-12.5) % Eos % (Auto) 3.2 (0.7-5.8) Baso % (Auto) 0.6 (0.1-1.2) % Neut # (Auto) 3.70 (1.56-6.13) K/mm3 Lymph # (Auto) 0.87 L (1.18-3.74) K/mm3 [place] # (Auto) 0.48 H (0.24-0.36) K/mm3 Eos # (Auto) 0.17 (0.04-0.36) K/mm3 Baso # (Auto) 0.03 (0.01-0.08) K/mm3 Sodium 136 (136-145) mEq/L Potassium 3.6 (3.5-5.1) mEq/L Chloride 105 (98-107) mEq/L Carbon Dioxide 28 (21-32) mEq/L Anion Gap 6.6 (5-15) BUN 19 H (7-18) mg/dL Creatinine 0.9 (0.55-1.02) mg/dL Est Cr Clr Drug Dosing 86.84 mL/min Estimated GFR (MDRD) > 60 (>60) mL/min BUN/Creatinine Ratio 21.1 H (14-18) Glucose 111 H (74-106) mg/dL Calcium 8.9 (8.5-10.1) mg/dL Total Bilirubin 0.3 (0.2-1.0) mg/dL AST 18 (15-37) U/L ALT 26 (14-59) U/L Alkaline Phosphatase 69 (46-116) U/L Total Protein 6.2 L (6.4-8.2) g/dl Albumin 3.4 (3.4-5.0) g/dl Globulin 2.8 gm/dL Albumin/Globulin Ratio 1.2 (1-2) Lipase 127 (73-393) U/L HCG, Qual (NEGATIVE) Urine Color Yellow (Yellow) Urine Appearance Clear (Clear) Urine pH 7.0 (5.0-8.0) Ur Specific [place] 1.015 (1.005-1.030) Urine Protein Negative (Negative) Urine Glucose (UA) Negative (Negative) Urine Ketones Negative (Negative) Urine Occult Blood Negative (Negative) Urine Nitrite Negative (Negative) Urine Bilirubin Negative (Negative) Urine Urobilinogen 0.2 (0.2-1.0) Ur Leukocyte Esterase Negative (Negative) Urine RBC Not seen (0-5) /hpf Urine WBC 0-5 (0-5) /hpf Ur Epithelial Cells 0-5 (0-5) /hpf Urine Bacteria Not seen (FEW) /hpf Urine Mucus Not seen (FEW) /hpf 09/04/17 Range/Units 11:20 WBC (3.98-10.04) K/mm3 RBC (3.98-5.22) M/mm3 Hgb (11.2-15.7) gm/L Hct (34.1-44.9) % MCV (79.4-94.8) fl MCH (25.6-32.2) pg MCHC (32.2-35.5) g/dl RDW Std Deviation (36.4-46.3) fL Plt Count (182-369) K/mm3 MPV (9.4-12.3) fl Neut % (Auto) (34.0-71.1) % Lymph % (Auto) (19.3-51.7) % [place] % (Auto) (4.7-12.5) % Eos % (Auto) (0.7-5.8) Baso % (Auto) (0.1-1.2) % Neut # (Auto) (1.56-6.13) K/mm3 Lymph # (Auto) (1.18-3.74) K/mm3 [place] # (Auto) (0.24-0.36) K/mm3 Eos # (Auto) (0.04-0.36) K/mm3 Baso # (Auto) (0.01-0.08) K/mm3 Sodium (136-145) mEq/L Potassium (3.5-5.1) mEq/L Chloride (98-107) mEq/L Carbon Dioxide (21-32) mEq/L Anion Gap (5-15) BUN (7-18) mg/dL Creatinine (0.55-1.02) mg/dL Est Cr Clr Drug Dosing mL/min Estimated GFR (MDRD) (>60) mL/min BUN/Creatinine Ratio (14-18) Glucose (74-106) mg/dL Calcium (8.5-10.1) mg/dL Total Bilirubin (0.2-1.0) mg/dL AST (15-37) U/L ALT (14-59) U/L Alkaline Phosphatase (46-116) U/L Total Protein (6.4-8.2) g/dl Albumin (3.4-5.0) g/dl Globulin gm/dL Albumin/Globulin Ratio (1-2) Lipase (73-393) U/L HCG, Qual Negative (NEGATIVE) Urine Color (Yellow) Urine Appearance (Clear) Urine pH (5.0-8.0) Ur Specific [place] (1.005-1.030) Urine Protein (Negative) Urine Glucose (UA) (Negative) Urine Ketones (Negative) Urine Occult Blood (Negative) Urine Nitrite (Negative) Urine Bilirubin (Negative) Urine Urobilinogen (0.2-1.0) Ur Leukocyte Esterase (Negative) Urine RBC (0-5) /hpf Urine WBC (0-5) /hpf Ur Epithelial Cells (0-5) /hpf Urine Bacteria (FEW) /hpf Urine Mucus (FEW) /hpf Meds: Medications Generic Name Dose Route Start Last Admin Trade Name Freq PRN Reason Stop Dose Admin Sodium Chloride 10 ml 09/04/17 10:41 09/04/17 11:07 Saline Flush FLUSH 10 ml ASDIRECTED PRN Administration Keep Vein Open Discontinued Medications Generic Name Dose Route Start Last Admin Trade Name Freq PRN Reason Stop Dose Admin Hydromorphone HCl 0.5 mg 09/04/17 10:42 09/04/17 11:03 Dilaudid IVPUSH 09/04/17 10:43 0.5 mg ONETIME ONE Administration Sodium Chloride 1,000 mls @ 1,000 mls/hr 09/04/17 10:41 09/04/17 11:04 Normal Saline IV 09/04/17 11:40 1,000 mls/hr .BOLUS STA Administration - Re-Assessments/Exams Free Text/Narrative Re-Assessment/Exam: 09/04/17 11:14 I ordered and IV NS 1L bolus, dilaudid 0.5mg IV, labs and UA. 09/04/17 12:47 Her CBC and CMP look good. Her UA shows no UTI. I will get her started on some prednisone. Departure - Departure Time of Disposition: 12:50 Disposition: Home, Self-Care 01 Condition: Good Clinical Impression: Colitis Diarrhea Qualifiers: Diarrhea type: presumed infectious Qualified Code(s): R19.7 - Diarrhea, unspecified - Discharge Information Prescriptions: predniSONE [Prednisone] 40 mg PO DAILY #14 tablet Referrals: Kelly Rivera PA-C [Primary Care Provider] - 1 Week Forms: ED Department Discharge, ED Return to Work/School Form Additional Instructions: Take prednisone daily for 7 days. Drink plenty of fluids. Get some rest today. Please return if you are worse. - My Orders Last 24 Hours: My Active Orders 09/04/17 10:41 Peripheral IV Care [RC] . DIRECTED Sodium Chloride 0.9% [Saline Flush] 10 ml FLUSH ASDIRECTED PRN Peripheral IV Insertion Adult [OM.PC] Stat 09/04/17 11:00 UA W/MICROSCOPIC [URIN] Stat - Assessment/Plan Last 24 Hours: My Active Orders 09/04/17 10:41 Peripheral IV Care [RC] . DIRECTED Sodium Chloride 0.9% [Saline Flush] 10 ml FLUSH ASDIRECTED PRN Peripheral IV Insertion Adult [OM.PC] Stat 09/04/17 11:00 UA W/MICROSCOPIC [URIN] Stat
== END 2017-09-04 13:35 | disposition home or self-care (01) ==
LOC: JD.ED 09:59
DX: K52.9 Noninfective gastroenteritis and colitis, unspecified (principal); K21.9 Gastro-esophageal reflux disease without esophagitis; Z88.2 Allergy status to sulfonamides; Z79.899 Other long term (current) drug therapy
CPT/HCPCS: 36415; 80053; 81001; 83690; 84703; 85025; 96361; 96374; 99284; J1170; J7040; J7050

== ENCOUNTER 2017-09-14 14:27 | Emergency (ER) | payer MEDICAID ==
[2017-09-14 14:47] VITALS: BP 102/70
--- NOTE | 2017-09-14 16:21 | EDM.PDOC ---
ED HPI GENERAL MEDICAL PROBLEM - General Chief Complaint: Abdominal Pain Stated Complaint: CONSTIPATION Time Seen by Provider: 09/14/17 15:25 Source of Information: Reports: Patient, Family (mother) History Limitations: Reports: No Limitations - History of Present Illness INITIAL COMMENTS - FREE TEXT/NARRATIVE: 41-year-old female presents for evaluation and treatment of abdominal pain and nausea. She began complaining of constipation yesterday therefore mom gave her a bottle of mag citrate and a suppository. She had results. Today she is complaining of diarrhea throughout the night. Mom states that she slept well throughout the night. She did vomit one time en route to the ER. No fevers. She is also complaining of dysuria. She reports she is passing gas. There patient is developmentally delayed and currently resides with her parents. Patient was seen in the a few days ago and diagnosed with colitis. She started on prednisone. Mom reports that she has had a rough couple of months. Her symptoms really seem to worsen when they were discussing her moving into a senior living. current plan is she will move into a senior living and she as no longer able to reside at home with her parents. Mom reports she has a history of bowel obstructions. Abdominal Pain Score (Numeric/FACES): 10 - Related Data Allergies Allergy/AdvReac Type Severity Reaction Status Date / Time mesalamine Allergy Rash Verified 09/14/17 15:00 Sulfa (Sulfonamide Allergy Rash Verified 09/14/17 15:00 Antibiotics) Home Meds: Home Meds Escitalopram [Lexapro] 20 mg PO DAILY 07/27/13 [History] Ferrous Sulfate [Ferosul] 325 mg PO BID 07/27/13 [History] Fluticasone/Salmeterol [Advair 250-50 Diskus] 1 puff INH BID 07/27/13 [History] Mesalamine [Lialda] 2.4 gm PO DAILY 07/27/13 [History] Norgestimate-Ethinyl Estradiol [Ortho Tri-Cyclen] 1 each PO DAILY 07/27/13 [ History] PNV95/Ferrous Fumarate/FA [ Multivitamins] 1 each PO DAILY 07/27/13 [ History] buPROPion [Wellbutrin SR] 100 mg PO DAILY 07/27/13 [History] carBAMazepine [Carbamazepine] 300 mg PO BID 04/05/14 [History] Famotidine 20 mg PO BID 11/03/15 [History] LORazepam [Ativan] 0.5 mg PO BID PRN 07/25/17 [History] Proventil Inhaler. 2 puff INH ASDIRECTED PRN 07/25/17 [History] SUMAtriptan 100 mg PO ASDIRECTED PRN 07/25/17 [History] carBAMazepine [Carbamazepine] 200 mg PO DAILY 07/25/17 [History] risperiDONE [Risperidone] 0.5 mg PO BEDTIME 07/25/17 [History] traZODone HCl [Trazodone HCl] 75 mg PO BEDTIME 07/25/17 [History] predniSONE [Prednisone] 40 mg PO DAILY #14 tablet 09/04/17 [Rx] Past Medical History HEENT History: Reports: Impaired Vision Respiratory History: Reports: Asthma Gastrointestinal History: Reports: GERD, Other (See Below) Other Gastrointestinal History: colitis Neurological History: Reports: Migraines, Seizure Psychiatric History: Reports: Anxiety, Depression, Mood Swings, Other (See Below ) Other Psychiatric History: developmental delay, borderline personality disorder Dermatologic History: Reports: Other (See Below) Other Dermatologic History: MRSA vaginal - and outbreak under nails recently, dermatitis - Infectious Disease History Infectious Disease History: Reports: MRSA - Past Surgical History Female Surgical History: Reports: Other (See Below) Social & Family History - Family History Family Medical History: Noncontributory Cardiac: Reports: CAD Neurological: Reports: CVA Endocrine/Metabolic: Reports: Diabetes, type II Oncologic: Reports: Breast, Colon - Tobacco Use Smoking Status *Q: Never Smoker - Caffeine Use Caffeine Use: Reports: None - Living Situation & Occupation Occupation: Other ED ROS GENERAL - Review of Systems Review Of Systems: See Below Constitutional: Denies: Fever GI/Abdominal: Reports: Abdominal Pain (generalized), Constipation, Diarrhea, Nausea, Vomiting (x1). Denies: Bloody Stool : Reports: Dysuria ED EXAM, GI/ABD - Physical Exam Exam: See Below Exam Limited By: No Limitations General Appearance: Alert, WD/WN, No Apparent Distress Respiratory/Chest: No Respiratory Distress, Lungs Clear, Normal Breath Sounds Cardiovascular: Normal Peripheral Pulses, Regular Rate, Rhythm, No Murmur GI/Abdominal Exam: Normal Bowel Sounds, Soft, Non-Tender, No Distention Neurological: Alert, Oriented, Normal Cognition Psychiatric: Normal Affect, Normal Mood Skin Exam: Warm, Dry, Normal Color Course - Vital Signs Last Recorded V/S: Last Vital Signs Temp 36.3 C 09/14/17 14:44 Pulse 63 09/14/17 14:44 Resp 16 09/14/17 14:44 BP 102/70 09/14/17 14:44 Pulse Ox 94 L 09/14/17 14:44 - Orders/Labs/Meds Orders: Active Orders 24 hr Category Date Time Status UA W/MICROSCOPIC [URIN] Stat Lab 09/14/17 15:31 Ordered Labs: Laboratory Tests 09/14/17 Range/Units 15:31 Urine Color Yellow (Yellow) Urine Appearance Clear (Clear) Urine pH 8.5 H (5.0-8.0) Ur Specific [place] 1.020 (1.005-1.030) Urine Protein 1+ H (Negative) Urine Glucose (UA) Negative (Negative) Urine Ketones Negative (Negative) Urine Occult Blood Negative (Negative) Urine Nitrite Negative (Negative) Urine Bilirubin 1+ H (Negative) Urine Urobilinogen 0.2 (0.2-1.0) Ur Leukocyte Esterase Negative (Negative) Urine RBC Not seen (0-5) /hpf Urine WBC 0-5 (0-5) /hpf Ur Epithelial Cells 5-10 H (0-5) /hpf Urine Bacteria Not seen (FEW) /hpf Urine Mucus Not seen (FEW) /hpf - Radiology Interpretation Free Text/Narrative:: Flat and upright shows no acute process. No air-fluid findings. Normal bowel gas pattern. - Re-Assessments/Exams Free Text/Narrative Re-Assessment/Exam: 09/14/17 16:14 Reviewed the x-ray and urine results with the patient and her mother. Her abdominal discomfort is likely from anxiety about her current situation and moving into the senior living. She also could be having cramps from her bottle make citrate last night. She has gotten up and use the bathroom several times she's been in the ER. We will discharge her home. Discharge instructions as documented. Departure - Departure Time of Disposition: 16:15 Disposition: Home, Self-Care 01 Condition: Fair Clinical Impression: Abdominal discomfort - Discharge Information Instructions: Abdominal Pain, Adult Referrals: Kelly Rivera PA-C [Primary Care Provider] - Forms: ED Department Discharge Additional Instructions: Continue with your current plan of care. OTC tylenol or motrin as needed for pain relief. Drink plenty of fluids. Follow-up with your PCP or family med as needed. Please return to the ER should your symptoms change or worsen. - My Orders Last 24 Hours: My Active Orders 09/14/17 15:31 UA W/MICROSCOPIC [URIN] Stat - Assessment/Plan Last 24 Hours: My Active Orders 09/14/17 15:31 UA W/MICROSCOPIC [URIN] Stat
--- NOTE | 2017-09-15 09:24 | CR ---
Abdomen: Supine and upright views of the abdomen were obtained. Comparison: Prior abdominal x-ray of 04/29/16. Bowel gas pattern appears normal. Calcification is seen within the pelvis which is felt compatible with incidental phlebolith. No other abnormal calcifications are seen. No soft tissue abnormality is noted. Mild scoliosis is present. Impression: 1. Nothing acute is seen. Diagnostic code #2
== END 2017-09-14 16:30 | disposition home or self-care (01) ==
LOC: JD.ED 14:27
DX: R10.9 Unspecified abdominal pain (principal); Z88.2 Allergy status to sulfonamides; Z88.8 Allergy status to other drugs, medicaments and biological substances; Z79.899 Other long term (current) drug therapy
CPT/HCPCS: 74019; 74019-26; 81001; 99284

== ENCOUNTER 2017-10-27 11:06 | Emergency (ER) | payer MEDICAID ==
[2017-10-27 11:19] VITALS: BP 98/68
[2017-10-27] MEDS ORDERED: Sodium Chloride 0.9% 10 ML Syringe FLUSH PRN (11:59)
[2017-10-27] MEDS ORDERED: Lactated Ringers 1,000 ML IV ONE (11:59)
--- NOTE | 2017-10-27 12:41 | EDM.PDOC ---
ED HPI GENERAL MEDICAL PROBLEM - General Chief Complaint: Gastrointestinal Problem Stated Complaint: COLITIS FLARE UP Time Seen by Provider: 10/27/17 11:45 Source of Information: Reports: Family (mother) History Limitations: Reports: No Limitations - History of Present Illness INITIAL COMMENTS - FREE TEXT/NARRATIVE: 42-year-old female presents with her mother for evaluation treatment of possible colitis flare. Reports that they were in [place] over the october. She had one bloody stool yesterday while there in [place]. She did have one bloody stool this morning mom is unable to quantify the exact amount but states it was "quite a bit ". Patient is complaining of some abdominal discomfort. She also had a headache yesterday. No vomiting. Patient is a history of colitis and has had bloody stool in the past. She's responded well to prednisone. Review of our records show that she was most recently seen in August for colitis flare. Patient is very flat and lethargic. When I see Daniela in the past she has been more active and talkative. Mom states that she is seeing Dr. Willingham at [facility]. Her medications have been adjusted lately and there is concern that she is overmedicated she is so lethargic. She is also become very sensitive to sound and noise which is new to her. Lower Abdominal Pain Score (Numeric/FACES): 10 - Related Data Allergies Allergy/AdvReac Type Severity Reaction Status Date / Time mesalamine Allergy Rash Verified 10/27/17 11:16 Sulfa (Sulfonamide Allergy Rash Verified 10/27/17 11:16 Antibiotics) Home Meds: Home Meds Escitalopram [Lexapro] 20 mg PO DAILY 07/27/13 [History] Ferrous Sulfate [Ferosul] 325 mg PO BID 07/27/13 [History] Fluticasone/Salmeterol [Advair 250-50 Diskus] 1 puff INH BID 07/27/13 [History] Mesalamine [Lialda] 2.4 gm PO DAILY 07/27/13 [History] Norgestimate-Ethinyl Estradiol [Ortho Tri-Cyclen] 1 each PO DAILY 07/27/13 [ History] PNV95/Ferrous Fumarate/FA [ Multivitamins] 1 each PO DAILY 07/27/13 [ History] Famotidine 20 mg PO BID 11/03/15 [History] Proventil Inhaler. 2 puff INH ASDIRECTED PRN 07/25/17 [History] SUMAtriptan 100 mg PO ASDIRECTED PRN 07/25/17 [History] carBAMazepine [Carbamazepine] 150 mg PO BID 07/25/17 [History] ClonazePAM [KlonoPIN] 0.5 mg PO BID 10/27/17 [History] Haloperidol [Haldol] 1 mg PO DAILY 10/27/17 [History] Haloperidol [Haldol] 5 mg PO BEDTIME 10/27/17 [History] diphenhydrAMINE HCl [Banophen] 50 mg PO BEDTIME 10/27/17 [History] predniSONE [Prednisone] 40 mg PO DAILY #14 tablet 10/27/17 [Rx] Past Medical History HEENT History: Reports: Impaired Vision Respiratory History: Reports: Asthma Gastrointestinal History: Reports: GERD, Other (See Below) Other Gastrointestinal History: colitis Neurological History: Reports: Migraines, Seizure Psychiatric History: Reports: Anxiety, Depression, Mood Swings, Other (See Below ) Other Psychiatric History: developmental delay, borderline personality disorder Dermatologic History: Reports: Other (See Below) Other Dermatologic History: MRSA vaginal - and outbreak under nails recently, dermatitis - Infectious Disease History Infectious Disease History: Reports: MRSA - Past Surgical History Female Surgical History: Reports: Other (See Below) Social & Family History - Family History Family Medical History: Noncontributory Cardiac: Reports: CAD Neurological: Reports: CVA Endocrine/Metabolic: Reports: Diabetes, type II Oncologic: Reports: Breast, Colon - Tobacco Use Smoking Status *Q: Never Smoker - Caffeine Use Caffeine Use: Reports: None - Living Situation & Occupation Occupation: Other ED ROS GENERAL - Review of Systems Review Of Systems: See Below Constitutional: Denies: Fever, Chills GI/Abdominal: Reports: Abdominal Pain, Bloody Stool (x2). Denies: Diarrhea, Nausea, Vomiting : Reports: No Symptoms. Denies: Dysuria Neurological: Reports: Headache ED EXAM, GI/ABD - Physical Exam Exam: See Below Exam Limited By: No Limitations General Appearance: WD/WN, No Apparent Distress, Lethargic Ears: Normal External Exam Nose: Normal Inspection Throat/Mouth: Normal Inspection, Normal Lips, Normal Voice, No Airway Compromise Respiratory/Chest: No Respiratory Distress, Lungs Clear, Normal Breath Sounds Cardiovascular: Normal Peripheral Pulses, Regular Rate, Rhythm, No Murmur GI/Abdominal Exam: Normal Bowel Sounds, Soft, No Distention, Tender (mild, generalized). No: Guarding, Rebound Neurological: Slow to Respond Psychiatric: Flat Affect Skin Exam: Warm, Dry, Normal Color Course - Vital Signs Last Recorded V/S: Last Vital Signs Temp 98.3 F 10/27/17 11:16 Pulse 70 10/27/17 11:16 Resp 16 10/27/17 11:16 BP 98/68 10/27/17 11:16 Pulse Ox 100 10/27/17 11:16 - Orders/Labs/Meds Labs: Laboratory Tests 10/27/17 10/27/17 10/27/17 Range/Units 11:55 11:55 13:46 WBC 4.56 (3.98-10.04) K/mm3 RBC 3.72 L (3.98-5.22) M/mm3 Hgb 11.8 (11.2-15.7) gm/L Hct 36.5 (34.1-44.9) % MCV 98.1 H (79.4-94.8) fl MCH 31.7 (25.6-32.2) pg MCHC 32.3 (32.2-35.5) g/dl RDW Std Deviation 43.0 (36.4-46.3) fL Plt Count 225 (182-369) K/mm3 MPV 9.3 L (9.4-12.3) fl Neutrophils % (Manual) 59 (40-60) % Band Neutrophils % 0 (0-10) % Lymphocytes % (Manual) 29 (20-40) % Atypical Lymphs % 0 % Monocytes % (Manual) 7 (2-10) % Eosinophils % (Manual) 5 (0.7-5.8) % Basophils % (Manual) 0 L (0.1-1.2) Platelet Estimate Adequate RBC Morph Comment Normal Sodium 141 (136-145) mEq/L Potassium 3.9 (3.5-5.1) mEq/L Chloride 107 (98-107) mEq/L Carbon Dioxide 28 (21-32) mEq/L Anion Gap 9.9 (5-15) BUN 19 H (7-18) mg/dL Creatinine 1.1 H (0.55-1.02) mg/dL Est Cr Clr Drug Dosing 65.45 mL/min Estimated GFR (MDRD) 55 (>60) mL/min BUN/Creatinine Ratio 17.3 (14-18) Glucose 83 (74-106) mg/dL Calcium 8.7 (8.5-10.1) mg/dL Total Bilirubin 0.3 (0.2-1.0) mg/dL AST 17 (15-37) U/L ALT 23 (14-59) U/L Alkaline Phosphatase 59 (46-116) U/L C-Reactive Protein < 0.2 (<1.0) mg/dL Total Protein 6.2 L (6.4-8.2) g/dl Albumin 3.4 (3.4-5.0) g/dl Globulin 2.8 gm/dL Albumin/Globulin Ratio 1.2 (1-2) Urine Color Light yellow (Yellow) Urine Appearance Clear (Clear) Urine pH 7.0 (5.0-8.0) Ur Specific [place] 1.015 (1.005-1.030) Urine Protein Negative (Negative) Urine Glucose (UA) Negative (Negative) Urine Ketones Negative (Negative) Urine Occult Blood Trace-intact H (Negative) Urine Nitrite Negative (Negative) Urine Bilirubin Negative (Negative) Urine Urobilinogen 0.2 (0.2-1.0) Ur Leukocyte Esterase Negative (Negative) Urine RBC Not seen (0-5) /hpf Urine WBC 0-5 (0-5) /hpf Ur Epithelial Cells 20-30 H (0-5) /hpf Urine Bacteria Not seen (FEW) /hpf Urine Mucus Not seen (FEW) /hpf Meds: Medications Discontinued Medications Generic Name Dose Route Start Last Admin Trade Name Freq PRN Reason Stop Dose Admin Lactated Ringer's 1,000 mls @ 999 mls/hr 10/27/17 11:59 10/27/17 12:19 Ringers, Lactated IV 10/27/17 12:59 999 mls/hr .BOLUS ONE Administration Sodium Chloride 10 ml 10/27/17 11:59 10/27/17 12:20 Saline Flush FLUSH 10 ml ASDIRECTED PRN Administration Keep Vein Open - Radiology Interpretation Free Text/Narrative:: abdominal xray shows a normal gas pattern. No dilated bowel loops. No air fluid levels seen. - Re-Assessments/Exams Free Text/Narrative Re-Assessment/Exam: 10/27/17 13:43 The labs and the x-ray results with the patient and her mother. No need for CT imaging today. will start prednisone, 40 mg daily. I will have her follow-up in the clinic this week to ensure that her symptoms are resolving. She is an appointment with Dr. Willingham Monday. Encouraged them to discuss her medications as she is very flat and lethargic. I do feel she is overmedicated. Discharge instructions as documented. Departure - Departure Time of Disposition: 13:44 Disposition: Home, Self-Care 01 Condition: Fair Clinical Impression: Colitis - Discharge Information Prescriptions: predniSONE [Prednisone] 40 mg PO DAILY #14 tablet Instructions: Colitis Referrals: Kelly Rivera PA-C [Primary Care Provider] - Samaria Fletcher PA [Physician Chemical Plant Manager] - Forms: ED Department Discharge Additional Instructions: Take the prednisone 2 tabs of 40 mg by mouth daily for the next 7 days. Recommend clear fluids and a bland diet as tolerated. Recommend a probiotic. These are available over-the counter. take one of these that she is not really taking 1. Follow-up next week with either your dust box tender or primary care to ensure that her symptoms are improving. Please return to the ER if her symptoms change or worsen.
--- NOTE | 2017-10-30 11:15 | CR ---
Abdomen: Supine and upright views of the abdomen were obtained. Comparison: Prior abdominal x-ray of 09/22/17. Slight scoliosis is noted. Bowel gas pattern is normal. Calcification is noted within right pelvis which is felt compatible with phlebolith. No free air is seen. Impression: 1. Nothing acute is seen. Incidental findings. Diagnostic code #2
== END 2017-10-27 14:10 | disposition home or self-care (01) ==
LOC: JD.ED 11:06
DX: K52.9 Noninfective gastroenteritis and colitis, unspecified (principal); Z88.2 Allergy status to sulfonamides; Z88.8 Allergy status to other drugs, medicaments and biological substances; Z79.899 Other long term (current) drug therapy
CPT/HCPCS: 36415; 74019; 80053; 81001; 85007; 85027; 86140; 96360; 99284; J7050; J7120

== ENCOUNTER 2017-11-26 19:01 | Emergency (ER) | payer MEDICAID ==
[2017-11-26 19:13] VITALS: BP 112/59
--- NOTE | 2017-11-26 21:01 | EDM.PDOC ---
ED HPI GENERAL MEDICAL PROBLEM - General Chief Complaint: ENT Problem Stated Complaint: SWELLING UNDER EYES, NOSE, & FOREHEAD Time Seen by Provider: 11/26/17 20:30 Source of Information: Reports: Patient, Family (mother) History Limitations: Reports: No Limitations - History of Present Illness INITIAL COMMENTS - FREE TEXT/NARRATIVE: 42 year old female presents for evaluation and treatment of facial swelling. Patient is developmentally delayed. History is primarily obtained from her mother. Reports symptoms started yesterday but have worsened today. Appreciated swelling to the forehead, around the eyes and the nasal bridge. No known trigger. History of seasonal allergies but has never had anything like this before. Patient has benadryl scheduled at night but has not taken any additional antihistamine. Reports associated symptoms of cough, headache, sneezing and throat pain. Reports she vomited Monday but not since then. She reports right eye discomfort. No ear pain or nausea. No eye discharge. Patient and mother deny any known trauma to the face. PCP is Kelly Rivera. Face Pain Score (Numeric/FACES): 5 - Related Data Allergies Allergy/AdvReac Type Severity Reaction Status Date / Time bupropion [From Wellbutrin] Allergy Rash Verified 12/06/17 12:00 mesalamine Allergy Rash Verified 12/06/17 12:00 montelukast [From Singulair] Allergy Rash Verified 12/06/17 12:00 Sulfa (Sulfonamide Allergy Rash Verified 12/06/17 12:00 Antibiotics) Home Meds: Home Meds Escitalopram [Lexapro] 20 mg PO DAILY 07/27/13 [History] Ferrous Sulfate [Ferosul] 325 mg PO BID 07/27/13 [History] Fluticasone/Salmeterol [Advair 250-50 Diskus] 1 puff INH BID 07/27/13 [History] Mesalamine [Lialda] 2.4 gm PO DAILY 07/27/13 [History] Norgestimate-Ethinyl Estradiol [Ortho Tri-Cyclen] 1 each PO DAILY 07/27/13 [ History] PNV95/Ferrous Fumarate/FA [ Multivitamins] 1 each PO DAILY 07/27/13 [ History] Famotidine 20 mg PO BID 11/03/15 [History] Proventil Inhaler. 2 puff INH ASDIRECTED PRN 07/25/17 [History] SUMAtriptan 100 mg PO ASDIRECTED PRN 07/25/17 [History] carBAMazepine [Carbamazepine] 150 mg PO BID 07/25/17 [History] ClonazePAM [KlonoPIN] 0.5 mg PO BID 10/27/17 [History] Haloperidol [Haldol] 0.5 mg PO DAILY 10/27/17 [History] Haloperidol [Haldol] 5 mg PO BEDTIME 10/27/17 [History] diphenhydrAMINE HCl [Banophen] 50 mg PO BEDTIME 10/27/17 [History] predniSONE [Prednisone] 40 mg PO DAILY #14 tablet 10/27/17 [Rx] Amoxicillin/Potassium Clav [Augmentin 500-125 Tablet] 1 each PO BID #20 tablet 11/26/17 [Rx] Loratadine [Claritin] 10 mg PO DAILY 11/28/17 [History] Past Medical History HEENT History: Reports: Impaired Vision Respiratory History: Reports: Asthma Gastrointestinal History: Reports: GERD, Other (See Below) Other Gastrointestinal History: colitis Neurological History: Reports: Migraines, Seizure Psychiatric History: Reports: Anxiety, Depression, Mood Swings, Other (See Below ) Other Psychiatric History: developmental delay, borderline personality disorder Dermatologic History: Reports: Other (See Below) Other Dermatologic History: MRSA vaginal - and outbreak under nails recently, dermatitis - Infectious Disease History Infectious Disease History: Reports: MRSA - Past Surgical History Female Surgical History: Reports: Other (See Below) Social & Family History - Family History Family Medical History: Noncontributory Cardiac: Reports: CAD Neurological: Reports: CVA Endocrine/Metabolic: Reports: Diabetes, type II Oncologic: Reports: Breast, Colon - Tobacco Use Smoking Status *Q: Never Smoker - Caffeine Use Caffeine Use: Reports: None - Recreational Drug Use Recreational Drug Use: No - Living Situation & Occupation Occupation: Other ED ROS ENT - Review of Systems Review Of Systems: See Below Constitutional: Denies: Fever, Chills HEENT: Reports: Eye Pain (right), Throat Pain, Other (reports sneezing, congestion and facial swelling). Denies: Ear Pain, Eye Discharge Respiratory: Reports: Cough GI/Abdominal: Denies: Nausea, Vomiting (monday but none since) Neurological: Reports: Headache ED EXAM, ENT - Physical Exam Exam: See Below Exam Limited By: No Limitations General Appearance: Alert, WD/WN, No Apparent Distress Eye Exam: Bilateral Eye: EOMI (no pain wiht EOM), Normal Inspection (no eye discharge or conjunctival injection), Periorbital Changes (swelling inferior to the eyes and minor swelling to the upper lids), PERRL Ears: Normal External Exam, Normal Canal, Hearing Grossly Normal, Normal TMs Nose: Nasal Swelling (nasal bridge) Mouth/Throat: Normal Inspection, Normal Lips, Normal Oropharynx, Normal Teeth Respiratory/Chest: No Respiratory Distress, Lungs Clear, Normal Breath Sounds Cardiovascular: Normal Peripheral Pulses, Regular Rate, Rhythm, No Murmur Neurological: Alert, Oriented, Normal Cognition Psychiatric: Normal Affect, Normal Mood Skin: Warm, Dry, Normal Color. No: Erythema Course - Vital Signs Last Recorded V/S: Last Vital Signs Temp 96.9 F 11/26/17 19:08 Pulse 61 11/26/17 19:08 Resp 18 11/26/17 19:08 BP 112/59 L 11/26/17 19:08 Pulse Ox 99 11/26/17 19:08 - Orders/Labs/Meds Meds: Medications Discontinued Medications Generic Name Dose Route Start Last Admin Trade Name Freq PRN Reason Stop Dose Admin Amoxicillin/Clavulanate Potassium 1 tab 11/26/17 21:03 11/26/17 21:11 Augmentin 500 Mg\125 Mg PO 11/26/17 21:04 1 tab ONETIME ONE Administration - Re-Assessments/Exams Free Text/Narrative Re-Assessment/Exam: 11/26/17 20:[address] Rust. Feels this is likely allergies. Recommends daily antihistamine such as claritin in addition to scheduled benadryl at night. May consider antibiotics for possible sinus infection. Discussed with mother and patient. [place] unlikely to be infection and is more likely allergies. Recommend antihistamine daily, nasal spray such as flonase and will try on augment for suspected sinus infection. Follow-up with family med for a recheck. Discharge instructions as documented. Departure - Departure Time of Disposition: 20:58 Disposition: Home, Self-Care 01 Condition: Fair Clinical Impression: Sinusitis - Discharge Information *PRESCRIPTION DRUG MONITORING PROGRAM REVIEWED*: No *COPY OF PRESCRIPTION DRUG MONITORING REPORT IN PATIENT EMMANUEL: No Prescriptions: Amoxicillin/Potassium Clav [Augmentin 500-125 Tablet] 1 each PO BID #20 tablet Instructions: Sinusitis, Adult, [id number] Referrals: Samaria Fletcher PA [Primary Care Provider] - Forms: ED Department Discharge Additional Instructions: continue taking Benadryl at night, scheduled, as prescribed. Take the Claritin, [place] or other antihistamine that you have at home in the morning. Recommend [id number] Flonase or Nasonex to help with congestion. Make sure you are drinking plenty of fluids. Follow up with primary care within 2 weeks for a recheck or sooner if not improving much better in this week. augmentin 1 tab twice a day for 10 days. This medication can be hard stomach. Continue taking probiotic. Recommend taking this medication with food. Please return to the ER if symptoms change or worsen.
[2017-11-26] MEDS ORDERED: Amoxicillin/Clavulanate K 500-125 MG Tab PO ONE (21:03)
== END 2017-11-26 22:25 | disposition home or self-care (01) ==
LOC: JD.ED 19:01
DX: J32.9 Chronic sinusitis, unspecified (principal); F41.9 Anxiety disorder, unspecified; F32.9 Major depressive disorder, single episode, unspecified; K21.9 Gastro-esophageal reflux disease without esophagitis; Z79.899 Other long term (current) drug therapy; Z88.2 Allergy status to sulfonamides; Z88.8 Allergy status to other drugs, medicaments and biological substances
CPT/HCPCS: 99283; A9270

== ENCOUNTER 2017-11-28 13:18 | Emergency (ER) | payer MEDICAID ==
--- NOTE | 2017-11-28 14:11 | EDM.PDOC ---
ED HPI GENERAL MEDICAL PROBLEM - General Chief Complaint: ENT Problem Stated Complaint: SWELLING IN FACE/EYES Time Seen by Provider: 11/28/17 13:51 Source of Information: Reports: Patient, Family (mother) History Limitations: Reports: No Limitations - History of Present Illness INITIAL COMMENTS - FREE TEXT/NARRATIVE: 42 year old female presents for evaluation and treatment of facial swelling. Patient is developmentally delayed, history is primarily obtained from her mother. Patient was seen in the ED by myself 2 days ago. Started on augment for a suspected sinus infection and recommended to start claritin and a nasal spray. Mother reports they have started taking claritin daily in addition to her nightly scheduled benadryl. She has also been taking the augmentin as prescribed. She is now complaining of fatigue, malaise and pain with chewing. Only minimal change to the facial swelling. No fevers, chills, or vomiting. - Related Data Allergies Allergy/AdvReac Type Severity Reaction Status Date / Time bupropion [From Wellbutrin] Allergy Rash Verified 12/06/17 12:00 mesalamine Allergy Rash Verified 12/06/17 12:00 montelukast [From Singulair] Allergy Rash Verified 12/06/17 12:00 Sulfa (Sulfonamide Allergy Rash Verified 12/06/17 12:00 Antibiotics) Home Meds: Home Meds Escitalopram [Lexapro] 20 mg PO DAILY 07/27/13 [History] Ferrous Sulfate [Ferosul] 325 mg PO BID 07/27/13 [History] Fluticasone/Salmeterol [Advair 250-50 Diskus] 1 puff INH BID 07/27/13 [History] Mesalamine [Lialda] 2.4 gm PO DAILY 07/27/13 [History] Norgestimate-Ethinyl Estradiol [Ortho Tri-Cyclen] 1 each PO DAILY 07/27/13 [ History] PNV95/Ferrous Fumarate/FA [ Multivitamins] 1 each PO DAILY 07/27/13 [ History] Famotidine 20 mg PO BID 11/03/15 [History] Proventil Inhaler. 2 puff INH ASDIRECTED PRN 07/25/17 [History] SUMAtriptan 100 mg PO ASDIRECTED PRN 07/25/17 [History] carBAMazepine [Carbamazepine] 150 mg PO BID 07/25/17 [History] ClonazePAM [KlonoPIN] 0.5 mg PO BID 10/27/17 [History] Haloperidol [Haldol] 0.5 mg PO DAILY 10/27/17 [History] Haloperidol [Haldol] 5 mg PO BEDTIME 10/27/17 [History] diphenhydrAMINE HCl [Banophen] 50 mg PO BEDTIME 10/27/17 [History] predniSONE [Prednisone] 40 mg PO DAILY #14 tablet 10/27/17 [Rx] Amoxicillin/Potassium Clav [Augmentin 500-125 Tablet] 1 each PO BID #20 tablet 11/26/17 [Rx] Loratadine [Claritin] 10 mg PO DAILY 11/28/17 [History] Past Medical History HEENT History: Reports: Impaired Vision Respiratory History: Reports: Asthma Gastrointestinal History: Reports: GERD, Other (See Below) Other Gastrointestinal History: colitis Neurological History: Reports: Migraines, Seizure Psychiatric History: Reports: Anxiety, Depression, Mood Swings, Other (See Below ) Other Psychiatric History: developmental delay, borderline personality disorder Dermatologic History: Reports: Other (See Below) Other Dermatologic History: MRSA vaginal - and outbreak under nails recently, dermatitis - Infectious Disease History Infectious Disease History: Reports: MRSA - Past Surgical History Female Surgical History: Reports: Other (See Below) Social & Family History - Family History Family Medical History: Noncontributory Cardiac: Reports: CAD Neurological: Reports: CVA Endocrine/Metabolic: Reports: Diabetes, type II Oncologic: Reports: Breast, Colon - Tobacco Use Smoking Status *Q: Never Smoker - Caffeine Use Caffeine Use: Reports: Soda - Recreational Drug Use Recreational Drug Use: No - Living Situation & Occupation Occupation: Other ED ROS ENT - Review of Systems Review Of Systems: See Below Constitutional: Reports: Chills, Malaise, Fatigue. Denies: Fever HEENT: Reports: Other (facial swelling to the eyes and bridge of her nose; reports pain with chewing) GI/Abdominal: Denies: Vomiting ED EXAM, ENT - Physical Exam Exam: See Below Exam Limited By: No Limitations General Appearance: Alert, WD/WN, No Apparent Distress Eye Exam: Bilateral Eye: EOMI (no pain with EOM), Periorbital Changes (minor swelling inferior to the eyes, slightly improved from 2 days ago, minor swelling to the upper eye lids), PERRL Ears: Normal External Exam Nose: Nasal Swelling (bridge of the nose) Mouth/Throat: Normal Inspection, Normal Gums, Normal Lips, Normal Oropharynx, Normal Teeth Neck: Normal Inspection, Supple, Non-Tender Respiratory/Chest: No Respiratory Distress, Lungs Clear, Normal Breath Sounds Cardiovascular: Normal Peripheral Pulses, Regular Rate, Rhythm, No Murmur Neurological: Alert, Oriented, Normal Cognition Psychiatric: Normal Affect, Normal Mood Skin: Warm, Dry. No: Ecchymosis, Erythema Course - Vital Signs Last Recorded V/S: Last Vital Signs Temp 98.2 F 11/28/17 14:35 Pulse 55 L 11/28/17 14:35 Resp 16 11/28/17 14:35 BP 95/63 11/28/17 14:35 Pulse Ox 97 11/28/17 14:35 - Re-Assessments/Exams Free Text/Narrative Re-Assessment/Exam: 11/28/17 14:[address] Demian Rust to come and see the patient for a second opinion. Agrees this is likely allergies. Does not feel imaging is indicated or additional testing. Recommend discontinuing the augmentin since she is not appreciating any improvement in her symptoms. Recommend continuing claritin daily. Does not feel steroids are indicated at this time. Follow-up in clinic. Discussed with mother and patient. In agreement of treatment plan. Discharge instructions as documented. Departure - Departure Time of Disposition: 14:40 Disposition: Home, Self-Care 01 Condition: Fair Clinical Impression: Facial swelling, Seasonal allergies - Discharge Information *PRESCRIPTION DRUG MONITORING PROGRAM REVIEWED*: No *COPY OF PRESCRIPTION DRUG MONITORING REPORT IN PATIENT EMMANUEL: No Instructions: Allergies, Adult, [id number] Referrals: Kelly Rivera PA-C [Primary Care Provider] - Forms: ED Department Discharge Additional Instructions: May stop the augmentin if not getting relief. Continue on the claritin daily. Start a nasal spray such as flonase. May take OTC ibuprofen to help with pain and swelling. May use a cool compress to the area for additional relief. Follow-up with PCP in not much better in 1 week. Please return to the ER should your symptoms change or worsen.
[2017-11-28 15:05] VITALS: BP 95/63
== END 2017-11-28 14:35 | disposition home or self-care (01) ==
LOC: JD.ED 13:18
DX: J30.2 Other seasonal allergic rhinitis (principal); F41.9 Anxiety disorder, unspecified; F32.9 Major depressive disorder, single episode, unspecified; Z79.899 Other long term (current) drug therapy; K21.9 Gastro-esophageal reflux disease without esophagitis; Z88.8 Allergy status to other drugs, medicaments and biological substances; Z88.2 Allergy status to sulfonamides
CPT/HCPCS: 99283

== ENCOUNTER 2017-12-06 11:42 | Emergency (ER) | payer MEDICAID ==
--- NOTE | 2017-12-06 13:16 | EDM.PDOC ---
ED HPI GENERAL MEDICAL PROBLEM - General Chief Complaint: ENT Problem Stated Complaint: FACIAL SWELLING Time Seen by Provider: 12/06/17 12:32 Source of Information: Reports: Patient, Family (mother present is the primary history billing representative. ) History Limitations: Reports: Altered Mental Status - History of Present Illness INITIAL COMMENTS - FREE TEXT/NARRATIVE: Patient is a 42-year-old female who presents to the ED complaining of frontal sinus discomfort and also mild swelling noted to the bridge of her nose. This has been going on for almost 10 days. She was evaluated in the ED on 2 separate occasions with the diagnosis of allergic reaction. Patient was placed on Augmentin that was discontinued after 2 days. Patient's been taking Flonase and Claritin daily with noticeable decrease in the swelling. Mother states patient does have a history of seasonal allergies and states during the late summer these are worse. She is concerned that every morning there is some noticeable increased swelling to her face that decreases throughout the course of the day. Patient continues to have some sinus drainage with no sore throat, no documented fever, no vision changes, no stiff neck, no cough, no sob, or no rash. There has been no new facial products and/or lotionsl. Mother does note that she recently changed from Tide to another detergent that may be contributing factor. Pain is isolated to the frontal sinus and bridge of the nose. There is no increased redness with faint swelling noted. Again there is no drainage noted from the medial canthus/nares that would be concerning for infection. Mother states the patient has a long history of migraines and also seizures. She's also has a history of anxiety and depression along with mood swings. She is developmentally delayed and with borderline personality disorder. Mother states the patient did not take her medications last night and was more irritated this morning and ran away landing up at the local police station. Mother did come and get the patient and brought her here for further evaluation. Of note patient was seen in the ED 11/28/[address] Jorge Andrew consulted with diagnosis of allergies. The Augmentin was discontinued. Patient denies any additional complaints. Per mother patient normally gets a allergy shot every year and states this was not obtained this year. Nose Pain Score (Numeric/FACES): 10 - Related Data Allergies Allergy/AdvReac Type Severity Reaction Status Date / Time bupropion [From Wellbutrin] Allergy Rash Verified 12/06/17 12:00 mesalamine Allergy Rash Verified 12/06/17 12:00 montelukast [From Singulair] Allergy Rash Verified 12/06/17 12:00 Sulfa (Sulfonamide Allergy Rash Verified 12/06/17 12:00 Antibiotics) Home Meds: Home Meds Escitalopram [Lexapro] 20 mg PO DAILY 07/27/13 [History] Ferrous Sulfate [Ferosul] 325 mg PO BID 07/27/13 [History] Fluticasone/Salmeterol [Advair 250-50 Diskus] 1 puff INH BID 07/27/13 [History] Mesalamine [Lialda] 2.4 gm PO DAILY 07/27/13 [History] Norgestimate-Ethinyl Estradiol [Ortho Tri-Cyclen] 1 each PO DAILY 07/27/13 [ History] PNV95/Ferrous Fumarate/FA [ Multivitamins] 1 each PO DAILY 07/27/13 [ History] Famotidine 20 mg PO BID 11/03/15 [History] Proventil Inhaler. 2 puff INH ASDIRECTED PRN 07/25/17 [History] SUMAtriptan 100 mg PO ASDIRECTED PRN 07/25/17 [History] carBAMazepine [Carbamazepine] 150 mg PO BID 07/25/17 [History] ClonazePAM [KlonoPIN] 0.5 mg PO BID 10/27/17 [History] Haloperidol [Haldol] 0.5 mg PO DAILY 10/27/17 [History] Haloperidol [Haldol] 5 mg PO BEDTIME 10/27/17 [History] diphenhydrAMINE HCl [Banophen] 50 mg PO BEDTIME 10/27/17 [History] predniSONE [Prednisone] 40 mg PO DAILY #14 tablet 10/27/17 [Rx] Amoxicillin/Potassium Clav [Augmentin 500-125 Tablet] 1 each PO BID #20 tablet 11/26/17 [Rx] Loratadine [Claritin] 10 mg PO DAILY 11/28/17 [History] Past Medical History HEENT History: Reports: Impaired Vision Respiratory History: Reports: Asthma Gastrointestinal History: Reports: GERD, Other (See Below) Other Gastrointestinal History: colitis Neurological History: Reports: Migraines, Seizure Psychiatric History: Reports: Anxiety, Depression, Mood Swings, Other (See Below ) Other Psychiatric History: developmental delay, borderline personality disorder Dermatologic History: Reports: Other (See Below) Other Dermatologic History: MRSA vaginal - and outbreak under nails recently, dermatitis - Infectious Disease History Infectious Disease History: Reports: MRSA - Past Surgical History Female Surgical History: Reports: Other (See Below) Social & Family History - Family History Family Medical History: Noncontributory Cardiac: Reports: CAD Neurological: Reports: CVA Endocrine/Metabolic: Reports: Diabetes, type II Oncologic: Reports: Breast, Colon - Tobacco Use Smoking Status *Q: Never Smoker - Caffeine Use Caffeine Use: Reports: None - Recreational Drug Use Recreational Drug Use: No - Living Situation & Occupation Occupation: Other ED ROS ENT - Review of Systems Review Of Systems: See Below Constitutional: Denies: Fever, Chills, Malaise, Weakness, Fatigue, Decreased Appetite HEENT: Reports: Nose Pain, Rhinitis, Sinus Problem. Denies: Ear Pain, Eye Discharge, Eye Pain, Nosebleed, Throat Pain, Throat Swelling, Vision Change Respiratory: Reports: No Symptoms Cardiovascular: Reports: No Symptoms GI/Abdominal: Reports: No Symptoms Musculoskeletal: Reports: No Symptoms Neurological: Reports: Headache (frontal) Psychiatric: Reports: No Symptoms ED EXAM, ENT - Physical Exam Exam: See Below Exam Limited By: No Limitations General Appearance: Alert, WD/WN, No Apparent Distress Eye Exam: Bilateral Eye: EOMI, Normal Inspection, PERRL Ears: Normal External Exam, Normal Canal, Hearing Grossly Normal, Normal TMs Nose: Clear Rhinorrhea, Nasal Swelling, Nasal Tenderness. No: Nasal Deformity, Active Bleeding Mouth/Throat: Normal Inspection, Normal Lips, Normal Oropharynx, Other (post nasal drip). No: Dental Pain, Drooling, Dry Mucous Membrane, Peritonsillar Mass , Pharyngeal Erythema, Throat Pain, Throat Swelling, Tongue Swelling, Tonsillar Erythema, Tonsillar Exudates, Tonsillar Swelling, Trismus, Uvular Deviation Head: Atraumatic, Normocephalic Neck: Normal Inspection, Supple, Non-Tender, Full Range of Motion. No: Lymphadenopathy (L), Lymphadenopathy (R) Respiratory/Chest: No Respiratory Distress, Lungs Clear, Normal Breath Sounds, No Accessory Muscle Use, Chest Non-Tender Cardiovascular: Normal Peripheral Pulses, Regular Rate, Rhythm GI/Abdominal: Normal Bowel Sounds, Soft, Non-Tender, No Organomegaly, No Distention Extremities: Normal Inspection Neurological: Alert, Oriented, CN II-XII Intact, Normal Cognition, No Motor/ Sensory Deficits Psychiatric: Normal Affect, Normal Mood Skin: Warm, Dry, Intact, Normal Color, No Rash Course - Vital Signs Last Recorded V/S: Last Vital Signs Temp 98.4 F 12/06/17 11:56 Pulse 52 L 12/06/17 13:30 Resp 16 12/06/17 13:30 BP 98/64 12/06/17 13:30 Pulse Ox 99 12/06/17 13:30 - Re-Assessments/Exams Free Text/Narrative Re-Assessment/Exam: No changes to medications will be obtained at this time. They have not taken any anti-inflammatories for the discomfort. I have asked for the mother to follow up with PCP first part of this week for reevaluation. No labs or studies are required at this point. Patient may benefit from taking the full Augmentin course. At this point I do not believe this is more likely allergy based and thus should subside on its own with regular routine care. Mother agrees and will make an appointment with PCP for this coming week. I did inform them of signs and symptoms to return back to the ED. They're aware if she develops any new or worsening symptoms to return. Mother will restart the augmentin. Departure - Departure Time of Disposition: 13:22 Disposition: Home, Self-Care 01 Condition: Good Clinical Impression: Facial swelling, Seasonal allergies Allergic rhinitis Qualifiers: Allergic rhinitis trigger: unspecified Allergic rhinitis seasonality: seasonal Qualified Code(s): J30.2 - Other seasonal allergic rhinitis - Discharge Information Instructions: Allergies, Adult, [id number] Referrals: Samaria Fletcher PA [Primary Care Provider] - Forms: ED Department Discharge Additional Instructions: Continue to take all home allergy medications as prescribed. May utilize nasal saline spray every hour throughout the course of the day. Push the fluids. See PCP this coming week for reevaluation. Return to the E.D. if you develop any new or worsening pain.
[2017-12-06 14:59] VITALS: BP 98/64
== END 2017-12-06 13:30 | disposition home or self-care (01) ==
LOC: JD.ED 11:42
DX: J30.2 Other seasonal allergic rhinitis (principal); F41.9 Anxiety disorder, unspecified; F32.9 Major depressive disorder, single episode, unspecified; Z79.82 Long term (current) use of aspirin; Z79.899 Other long term (current) drug therapy; Z88.2 Allergy status to sulfonamides; Z88.8 Allergy status to other drugs, medicaments and biological substances
CPT/HCPCS: 99283

== ENCOUNTER 2018-07-24 16:03 | Emergency (ER) | payer MEDICARE, MEDICAID ==
[2018-07-24 17:18] VITALS: BP 117/89
--- NOTE | 2018-07-24 18:12 | EDM.PDOC ---
<Elizabeth Bee - Last Filed: 07/24/18 18:49> ED HPI GENERAL MEDICAL PROBLEM - General Chief Complaint: Skin Complaint Stated Complaint: RASH Time Seen by Provider: 07/24/18 17:42 Source of Information: Reports: Patient, Family History Limitations: Reports: No Limitations - History of Present Illness INITIAL COMMENTS - FREE TEXT/NARRATIVE: 42 y/o female presents to ER with cc left armpit burning, itching and painful. She reports she has had a rash which she thought was dry skin. She has been putting cream and lotion on it but it is not getting better. She denies any fever, chills or headaches. She is accompanied by her mother. Onset Date: 07/19/18 Onset Time: 12:00 Duration: Getting Worse Location: Reports: Upper Extremity, Left Quality: Reports: Burning, Other (itching, painful) Severity: Mild Improves with: Reports: None Worsens with: Reports: None Context: Reports: Activity Associated Symptoms: Reports: No Other Symptoms - Related Data Allergies Allergy/AdvReac Type Severity Reaction Status Date / Time bupropion [From Wellbutrin] Allergy Rash Verified 07/24/18 17:18 mesalamine Allergy Rash Verified 07/24/18 17:18 montelukast [From Singulair] Allergy Rash Verified 07/24/18 17:18 Sulfa (Sulfonamide Allergy Rash Verified 07/24/18 17:18 Antibiotics) Home Meds: Home Meds Escitalopram [Lexapro] 20 mg PO DAILY 07/27/13 [History] Ferrous Sulfate [Ferosul] 325 mg PO BID 07/27/13 [History] Fluticasone/Salmeterol [Advair 250-50 Diskus] 1 puff INH BID 07/27/13 [History] Mesalamine [Lialda] 2.4 gm PO DAILY 07/27/13 [History] Norgestimate-Ethinyl Estradiol [Ortho Tri-Cyclen] 1 each PO DAILY 07/27/13 [ History] PNV95/Ferrous Fumarate/FA [ Multivitamins] 1 each PO DAILY 07/27/13 [ History] Famotidine 20 mg PO BID 11/03/15 [History] Proventil Inhaler. 2 puff INH ASDIRECTED PRN 07/25/17 [History] SUMAtriptan 100 mg PO ASDIRECTED PRN 07/25/17 [History] carBAMazepine [Carbamazepine] 100 mg PO BID 07/25/17 [History] ClonazePAM [KlonoPIN] 0.25 mg PO BID 10/27/17 [History] Haloperidol [Haldol] 0.5 mg PO DAILY 10/27/17 [History] Haloperidol [Haldol] 2.5 mg PO BEDTIME 10/27/17 [History] diphenhydrAMINE HCl [Banophen] 50 mg PO BEDTIME 10/27/17 [History] Loratadine [Claritin] 10 mg PO DAILY 11/28/17 [History] Acyclovir 800 mg PO 5XDAY 7 Days #35 tablet 07/24/18 [Rx] Fluticasone Propionate [Flonase] 1 inh INH ASDIRECTED 07/24/18 [History] guaiFENesin [Mucinex] 1 tab PO DAILY 07/24/18 [History] Past Medical History HEENT History: Reports: Impaired Vision Respiratory History: Reports: Asthma Gastrointestinal History: Reports: GERD, Other (See Below) Other Gastrointestinal History: colitis Neurological History: Reports: Migraines, Seizure Psychiatric History: Reports: Anxiety, Depression, Mood Swings, Other (See Below ) Other Psychiatric History: developmental delay, borderline personality disorder Dermatologic History: Reports: Other (See Below) Other Dermatologic History: MRSA vaginal - and outbreak under nails recently, dermatitis - Infectious Disease History Infectious Disease History: Reports: MRSA - Past Surgical History Female Surgical History: Reports: Other (See Below) Social & Family History - Family History Family Medical History: Noncontributory Cardiac: Reports: CAD Neurological: Reports: CVA Endocrine/Metabolic: Reports: Diabetes, type II Oncologic: Reports: Breast, Colon - Tobacco Use Smoking Status *Q: Never Smoker Second Hand Smoke Exposure: No - Caffeine Use Caffeine Use: Reports: Coffee - Recreational Drug Use Recreational Drug Use: No - Living Situation & Occupation Occupation: Other ED ROS GENERAL - Review of Systems Review Of Systems: See Below Constitutional: Denies: Fever, Chills ED EXAM, SKIN/RASH Exam: See Below Exam Limited By: No Limitations General Appearance: Alert, WD/WN, No Apparent Distress Throat/Mouth: Normal Inspection, Normal Lips, Normal Teeth, Normal Gums, Normal Oropharynx, Normal Voice, No Airway Compromise Head: Atraumatic, Normocephalic Neck: Normal Inspection, Supple, Non-Tender Respiratory/Chest: No Respiratory Distress, Lungs Clear, Normal Breath Sounds, No Accessory Muscle Use, Chest Non-Tender Cardiovascular: Normal Peripheral Pulses, Regular Rate, Rhythm, No Edema, No Gallop, No JVD, No Murmur, No Rub Neurological: Alert, Oriented, CN II-XII Intact, Normal Cognition, Normal Gait, Normal Reflexes, No Motor/Sensory Deficits Skin: Warm, Dry, Intact, Other (left arm pit macular papular vesicular rash noted. ) Lymphatic: No Adenopathy Course - Vital Signs Last Recorded V/S: Last Vital Signs Temp 98.9 F 07/24/18 17:13 Pulse 86 07/24/18 17:13 Resp 16 07/24/18 17:13 BP 117/89 07/24/18 17:13 Pulse Ox 100 07/24/18 17:13 - Re-Assessments/Exams Free Text/Narrative Re-Assessment/Exam: 07/24/18 18:26 42 y/o female presents to ER with cc rash on left arm pit for the past 7 days. I will discharge with Acyclovir for outpatient anti-viral therapy. Instructed her to keep area clean and dry and not to be around immunocompromised individuals. Instructed to keep areas covered until they are completely dried up. Instructed to follow up with her PCP. Instructed to return to the ER for any new or acute worsening symptoms. She verbalized understanding and is comfortable with plan for discharge. Departure - Departure Time of Disposition: 18:28 Disposition: Home, Self-Care 01 Condition: Good Clinical Impression: Shingles Qualifiers: Herpes zoster complications: unspecified herpes zoster complication Qualified Code(s): B02.8 - Zoster with other complications - Discharge Information *PRESCRIPTION DRUG MONITORING PROGRAM REVIEWED*: Not Applicable *COPY OF PRESCRIPTION DRUG MONITORING REPORT IN PATIENT EMMANUEL: Not Applicable Prescriptions: Acyclovir 800 mg PO 5XDAY 7 Days #35 tablet Instructions: Shingles, [id number] Referrals: Liu Fletcher PA [Primary Care Provider] - Forms: ED Department Discharge Additional Instructions: You have been diagnosis with shingles. Keep the area clean and dry. Do not be around immunocompromised individuals. Keep are covered until all blisters are dry. Follow up with your PCP. Return to the ER for any new or acute worsening symptoms. You have been given a RX for Acyclovir take this medication 5 times a day for 7 days. <Juan Antonio Rust - Last Filed: 07/24/18 20:26> Course - Re-Assessments/Exams Free Text/Narrative Re-Assessment/Exam: 07/24/18 20:25 Hx and exam has been done by BELL Vee. She has discussed sx and findings with me. I agree with hx and exam as documented.
== END 2018-07-24 18:57 | disposition home or self-care (01) ==
LOC: JD.ED 16:03
DX: B02.8 Zoster with other complications (principal); K21.9 Gastro-esophageal reflux disease without esophagitis; J45.909 Unspecified asthma, uncomplicated; F41.9 Anxiety disorder, unspecified; F32.9 Major depressive disorder, single episode, unspecified; Z88.8 Allergy status to other drugs, medicaments and biological substances; Z88.2 Allergy status to sulfonamides; Z79.899 Other long term (current) drug therapy
CPT/HCPCS: 99282; 99283

== ENCOUNTER 2019-05-20 19:31 | Emergency (ER) | payer MEDICARE, MEDICAID ==
[2019-05-20 20:16] VITALS: BP 124/77; PULSE 63
[2019-05-20] MEDS ORDERED: Ondansetron 4 MG Tab.DIS PO ONE (21:16)
--- NOTE | 2019-05-20 22:34 | EDM.PDOC ---
ED HPI GENERAL MEDICAL PROBLEM - General Chief Complaint: Abdominal Pain Stated Complaint: BURNING ABDOMINAL PAIN Time Seen by Provider: 05/20/19 21:04 Source of Information: Reports: Patient, Provider History Limitations: Reports: No Limitations - History of Present Illness INITIAL COMMENTS - FREE TEXT/NARRATIVE: The patient presents with burning abdominal pain, nausea, vomiting and sore throat. This has been going on today. She has no fever but she does have chills. She has not been around anyone who is sick and she did not eat any bad food. She has no cough, congestion, runny nose, dysuria or diarrhea. She still has her gallbladder and appendix. Onset: Gradual Duration: Hour(s): Location: Reports: Abdomen Quality: Reports: Burning Severity: Mild Improves with: Reports: None Worsens with: Reports: None Associated Symptoms: Reports: Fever/Chills, Nausea/Vomiting. Denies: Chest Pain , Cough, Headaches, Shortness of Breath Middle Abdomen Pain Score (Numeric/FACES): 10 - Related Data Allergies Allergy/AdvReac Type Severity Reaction Status Date / Time bupropion [From Wellbutrin] Allergy Rash Verified 05/20/19 20:17 mesalamine Allergy Rash Verified 05/20/19 20:17 montelukast [From Singulair] Allergy Rash Verified 05/20/19 20:17 Sulfa (Sulfonamide Allergy Rash Verified 05/20/19 20:17 Antibiotics) Home Meds: Home Meds Escitalopram [Lexapro] 20 mg PO DAILY 07/27/13 [History] Ferrous Sulfate [Ferosul] 325 mg PO BID 07/27/13 [History] Fluticasone/Salmeterol [Advair 250-50 Diskus] 1 puff INH BID 07/27/13 [History] Mesalamine [Lialda] 2.4 gm PO DAILY 07/27/13 [History] Norgestimate-Ethinyl Estradiol [Ortho Tri-Cyclen] 1 each PO DAILY 07/27/13 [ History] PNV95/Ferrous Fumarate/FA [ Multivitamins] 1 each PO DAILY 07/27/13 [ History] Famotidine 20 mg PO BID 11/03/15 [History] Proventil Inhaler. 2 puff INH ASDIRECTED PRN 07/25/17 [History] carBAMazepine [Carbamazepine] 100 mg PO BID 07/25/17 [History] ClonazePAM [KlonoPIN] 0.25 mg PO BID 10/27/17 [History] diphenhydrAMINE HCl [Banophen] 50 mg PO BEDTIME 10/27/17 [History] haloperidoL [Haldol] 0.5 mg PO DAILY 10/27/17 [History] haloperidoL [Haldol] 2.5 mg PO BEDTIME 10/27/17 [History] Fluticasone Propionate [Flonase] 1 inh INH ASDIRECTED 07/24/18 [History] Loratadine [Claritin] 10 mg PO DAILY 11/07/18 [History] Polyethylene Glycol 3350 [Miralax] 17 gm PO DAILY 11/07/18 [History] predniSONE [Prednisone] 20 mg PO DAILY #4 tablet 11/24/18 [Rx] Ondansetron [Zofran ODT] 4 mg PO TID PRN #8 tab.dis 03/10/19 [Rx] Ondansetron [Zofran ODT] 4 mg PO Q6H PRN #20 tab.dis 05/20/19 [Rx] Past Medical History HEENT History: Reports: Impaired Vision Other HEENT History: wears eyeglasses. 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 Musculoskeletal History: Reports: None Neurological History: Reports: Migraines, Seizure Psychiatric History: Reports: Anxiety, Depression, Mood Swings, Other (See Below ) Other Psychiatric History: developmental delay, borderline personality disorder Endocrine/Metabolic History: Reports: None Hematologic History: Reports: Anemia, Iron Deficiency Immunologic History: Reports: None Oncologic (Cancer) History: Reports: None Dermatologic History: Reports: Other (See Below) Other Dermatologic History: MRSA vaginal - and outbreak under nails recently, dermatitis - Infectious Disease History Infectious Disease History: Reports: Chicken Pox, MRSA, Shingles - Past Surgical History Female Surgical History: Reports: Other (See Below) Social & Family History - Family History Family Medical History: Noncontributory Cardiac: Reports: CAD Neurological: Reports: CVA Endocrine/Metabolic: Reports: Diabetes, type II Oncologic: Reports: Breast, Colon - Tobacco Use Smoking Status *Q: Never Smoker Second Hand Smoke Exposure: No - Caffeine Use Caffeine Use: Reports: None - Recreational Drug Use Recreational Drug Use: No - Living Situation & Occupation Occupation: Other ED ROS GENERAL - Review of Systems Review Of Systems: See Below Constitutional: Reports: Chills. Denies: Fever HEENT: Reports: Throat Pain Respiratory: Reports: No Symptoms Cardiovascular: Reports: No Symptoms Endocrine: Reports: No Symptoms GI/Abdominal: Reports: Abdominal Pain, Nausea, Vomiting. Denies: Diarrhea : Reports: No Symptoms Musculoskeletal: Reports: No Symptoms ED EXAM, GI/ABD - Physical Exam Exam: See Below Exam Limited By: No Limitations General Appearance: Alert, No Apparent Distress Ears: Normal External Exam Nose: Normal Inspection Throat/Mouth: Other (Mild erythema) Head: Atraumatic, Normocephalic Neck: Normal Inspection, Supple, Non-Tender Respiratory/Chest: No Respiratory Distress, Lungs Clear, Normal Breath Sounds Cardiovascular: Regular Rate, Rhythm, No Edema, No Murmur GI/Abdominal Exam: Soft, Non-Tender, No Organomegaly, No Mass Back Exam: Normal Inspection Extremities: Normal Inspection Course - Vital Signs Last Recorded V/S: Last Vital Signs Temp 97.8 F 05/20/19 20:14 Pulse 63 05/20/19 20:14 Resp 16 05/20/19 20:14 BP 124/77 05/20/19 20:14 Pulse Ox 99 05/20/19 20:14 - Orders/Labs/Meds Orders: Active Orders 24 hr Category Date Time Status CULTURE STREP A CONFIRMATION [] Stat Lab 05/20/19 20:41 Results STREP SCRN A RAPID W CULT CONF [RM] Stat Lab 05/20/19 20:41 Results Labs: Laboratory Tests 05/20/19 05/20/19 05/20/19 Range/Units 20:20 21:30 21:30 WBC 3.66 L (3.98-10.04) K/mm3 RBC 3.75 L (3.98-5.22) M/mm3 Hgb 11.4 (11.2-15.7) gm/dl Hct 35.4 (34.1-44.9) % MCV 94.4 (79.4-94.8) fl MCH 30.4 (25.6-32.2) pg MCHC 32.2 (32.2-35.5) g/dl RDW Std Deviation 41.8 (36.4-46.3) fL Plt Count 242 (182-369) K/mm3 MPV 8.8 L (9.4-12.3) fl Neut % (Auto) 41.6 (34.0-71.1) % Lymph % (Auto) 41.8 (19.3-51.7) % [place] % (Auto) 11.2 (4.7-12.5) % Eos % (Auto) 4.6 (0.7-5.8) Baso % (Auto) 0.8 (0.1-1.2) % Neut # (Auto) 1.52 L (1.56-6.13) K/mm3 Lymph # (Auto) 1.53 (1.18-3.74) K/mm3 [place] # (Auto) 0.41 H (0.24-0.36) K/mm3 Eos # (Auto) 0.17 (0.04-0.36) K/mm3 Baso # (Auto) 0.03 (0.01-0.08) K/mm3 Sodium 135 L (136-145) mEq/L Potassium 3.7 (3.5-5.1) mEq/L Chloride 100 (98-107) mEq/L Carbon Dioxide 27 (21-32) mEq/L Anion Gap 11.7 (5-15) BUN 12 (7-18) mg/dL Creatinine 1.0 (0.55-1.02) mg/dL Est Cr Clr Drug Dosing 76.59 mL/min Estimated GFR (MDRD) > 60 (>60) mL/min BUN/Creatinine Ratio 12.0 L (14-18) Glucose 97 (74-106) mg/dL Calcium 8.9 (8.5-10.1) mg/dL Total Bilirubin 0.4 (0.2-1.0) mg/dL AST 22 (15-37) U/L ALT 26 (14-59) U/L Alkaline Phosphatase 77 (46-116) U/L Total Protein 6.9 (6.4-8.2) g/dl Albumin 3.8 (3.4-5.0) g/dl Globulin 3.1 gm/dL Albumin/Globulin Ratio 1.2 (1-2) HCG, Qual (NEGATIVE) Urine Color Yellow (Yellow) Urine Appearance Clear (Clear) Urine pH 7.0 (5.0-8.0) Ur Specific [place] 1.015 (1.005-1.030) Urine Protein Negative (Negative) Urine Glucose (UA) Negative (Negative) Urine Ketones Negative (Negative) Urine Occult Blood Negative (Negative) Urine Nitrite Negative (Negative) Urine Bilirubin Negative (Negative) Urine Urobilinogen 0.2 (0.2-1.0) Ur Leukocyte Esterase Negative (Negative) 05/20/19 Range/Units 21:30 WBC (3.98-10.04) K/mm3 RBC (3.98-5.22) M/mm3 Hgb (11.2-15.7) gm/dl Hct (34.1-44.9) % MCV (79.4-94.8) fl MCH (25.6-32.2) pg MCHC (32.2-35.5) g/dl RDW Std Deviation (36.4-46.3) fL Plt Count (182-369) K/mm3 MPV (9.4-12.3) fl Neut % (Auto) (34.0-71.1) % Lymph % (Auto) (19.3-51.7) % [place] % (Auto) (4.7-12.5) % Eos % (Auto) (0.7-5.8) Baso % (Auto) (0.1-1.2) % Neut # (Auto) (1.56-6.13) K/mm3 Lymph # (Auto) (1.18-3.74) K/mm3 [place] # (Auto) (0.24-0.36) K/mm3 Eos # (Auto) (0.04-0.36) K/mm3 Baso # (Auto) (0.01-0.08) K/mm3 Sodium (136-145) mEq/L Potassium (3.5-5.1) mEq/L Chloride (98-107) mEq/L Carbon Dioxide (21-32) mEq/L Anion Gap (5-15) BUN (7-18) mg/dL Creatinine (0.55-1.02) mg/dL Est Cr Clr Drug Dosing mL/min Estimated GFR (MDRD) (>60) mL/min BUN/Creatinine Ratio (14-18) Glucose (74-106) mg/dL Calcium (8.5-10.1) mg/dL Total Bilirubin (0.2-1.0) mg/dL AST (15-37) U/L ALT (14-59) U/L Alkaline Phosphatase (46-116) U/L Total Protein (6.4-8.2) g/dl Albumin (3.4-5.0) g/dl Globulin gm/dL Albumin/Globulin Ratio (1-2) HCG, Qual Negative (NEGATIVE) Urine Color (Yellow) Urine Appearance (Clear) Urine pH (5.0-8.0) Ur Specific [place] (1.005-1.030) Urine Protein (Negative) Urine Glucose (UA) (Negative) Urine Ketones (Negative) Urine Occult Blood (Negative) Urine Nitrite (Negative) Urine Bilirubin (Negative) Urine Urobilinogen (0.2-1.0) Ur Leukocyte Esterase (Negative) Meds: Medications Discontinued Medications Generic Name Dose Route Start Last Admin Trade Name Freq PRN Reason Stop Dose Admin Ondansetron HCl 4 mg 05/20/19 21:16 05/20/19 21:23 Zofran Odt PO 05/20/19 21:17 4 mg ONETIME ONE Administration - Re-Assessments/Exams Free Text/Narrative Re-Assessment/Exam: 05/20/19 22:33 I ordered zofran 4mg ODT, labs, UA and strep. Her WBC was low at 3.66. Her Na was a little low at 135. Her HCG is negative. Her UA shows no UTI. Her strep is negative. Departure - Departure Time of Disposition: 22:40 Disposition: Home, Self-Care 01 Condition: Good Clinical Impression: Gastroenteritis - Discharge Information *PRESCRIPTION DRUG MONITORING PROGRAM REVIEWED*: Not Applicable *COPY OF PRESCRIPTION DRUG MONITORING REPORT IN PATIENT EMMANUEL: Not Applicable Prescriptions: Ondansetron [Zofran ODT] 4 mg PO Q6H PRN #20 tab.dis PRN Reason: Nausea\vomiting Referrals: Kelly Rivera PA-C [Primary Care Provider] - 1 Week Forms: ED Department Discharge, ED Return to Work/School Form Additional Instructions: Drink plenty of fluids. Take your medication as prescribed. Take the zofran every 6 hours as needed for nausea and vomiting. Please return if you are worse. Sepsis Event Note - Evaluation Sepsis Screening Result: No Definite Risk - Focused Exam Vital Signs: Vital Signs Temp Pulse Resp BP Pulse Ox 05/20/19 20:14 97.8 F 63 16 124/77 99 Date Exam was Performed: 05/20/19 Time Exam was Performed: 22:39 - My Orders Last 24 Hours: My Active Orders 05/20/19 20:41 CULTURE STREP A CONFIRMATION [RM] Stat STREP SCRN A RAPID W CULT CONF [RM] Stat - Assessment/Plan Last 24 Hours: My Active Orders 05/20/19 20:41 CULTURE STREP A CONFIRMATION [RM] Stat STREP SCRN A RAPID W CULT CONF [RM] Stat
== END 2019-05-20 22:47 | disposition home or self-care (01) ==
LOC: JD.ED 19:31
DX: K52.9 Noninfective gastroenteritis and colitis, unspecified (principal); J45.909 Unspecified asthma, uncomplicated; F32.9 Major depressive disorder, single episode, unspecified; F41.9 Anxiety disorder, unspecified; D50.9 Iron deficiency anemia, unspecified; K21.9 Gastro-esophageal reflux disease without esophagitis; R56.9 Unspecified convulsions; Z88.8 Allergy status to other drugs, medicaments and biological substances; Z88.2 Allergy status to sulfonamides; Z79.899 Other long term (current) drug therapy; Z79.51 Long term (current) use of inhaled steroids; Z79.52 Long term (current) use of systemic steroids
CPT/HCPCS: 36415; 80053; 81003; 84703; 85025; 87081; 87430; 99284; A9270; 99283

== ENCOUNTER 2020-07-16 07:07 | Day surgery (SDC) | payer MEDICARE, MEDICAID ==
[~2020-07-16 07:07] MED LIST: Lactated Ringers 1,000 ML IV SCH; Lidocaine 1% 4 ML ONE; Lidocaine 1%/Sod Bicarbonate in NS 8.4% 1 ML Syringe IDERM PRN; Midazolam 1 MG/ML 2 ML SDV ONE; Propofol 200 MG/20 ML SDV ONE; Sodium Chloride 0.9% 10 ML Syringe FLUSH PRN; fentaNYL 100 MCG/2 ML SDV ONE
[2020-07-16] MEDS ORDERED: Bupivacaine 0.5%/EPINEPHrine 1:200,000 50 ML MDV ONE (07:13)
--- NOTE | 2020-07-16 07:20 | PCM.PREANE ---
Preanesthetic Assessment - Anesthesia/Transfusion/Family Hx Anesthesia History: Prior Anesthesia Without Reaction Family History of Anesthesia Reaction: No Transfusion History: No Prior Transfusion(s) Intubation History: Unknown - Review of Systems General: No Symptoms, Night Sweats Pulmonary: Shortness of Breath (pt states had asthma attack last night due to anxiety took rescue inhaler-symptoms subsided) Cardiovascular: Chest Pain (pt states had CP last night with asthma attack due to anxiety ) Gastrointestinal: No Symptoms Neurological: No Symptoms Other: Reports: Thyroid Problems - Physical Assessment NPO Status Date: 07/15/20 NPO Status Time: 21:00 ASA Class: 2 Mental Status: Alert & Oriented x3 Airway Class: Mallampati = 1 Dentition: Reports: Broken Tooth/Teeth ((L) upper incisor flipper) Lungs: Clear to Auscultation, Normal Respiratory Effort Cardiovascular: Regular Rate, Regular Rhythm - Allergies Allergies/Adverse Reactions: Allergies Allergy/AdvReac Type Severity Reaction Status Date / Time bupropion [From Wellbutrin] Allergy Rash Verified 07/15/20 09:14 mesalamine Allergy Rash Verified 07/15/20 09:14 montelukast [From Singulair] Allergy Rash Verified 07/15/20 09:14 Sulfa (Sulfonamide Allergy Rash Verified 07/15/20 09:14 Antibiotics) - Acknowledgements Anesthesia Type Planned: MAC Pt an Appropriate Candidate for the Planned Anesthesia: Yes Alternatives and Risks of Anesthesia Discussed w Pt/Guardian: Yes Pt/Guardian Understands and Agrees with Anesthesia Plan: Yes PreAnesthesia Questionnaire HEENT History: Reports: Allergic Rhinitis, Impaired Vision, Other (See Below) Other HEENT History: wears eyeglasses, oral canker sore, right eustachian tube dysfunction, sore throat, right otalgia Cardiovascular History: Reports: None Respiratory History: Reports: Asthma (well controlled, uses rescue inhaler when needed) Gastrointestinal History: Reports: Chronic Constipation, GERD, Hemorrhoids, Other (See Below) Other Gastrointestinal History: colitis, gastroenteritis, nausea, vomiting Genitourinary History: Reports: UTI, Recurrent, Other (See Below) Other Genitourinary History: vaginal yeast infections, dysuria 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) Other OB/BYN History: abnormal mammogram, dysmenorrhea, vaginitis, vulvovagintis Musculoskeletal History: Reports: Other (See Below) Other Musculoskeletal History: bilateral shoulder pain, left knee pain Neurological History: Reports: Migraines, Seizure Psychiatric History: Reports: Anxiety, Depression, Mood Swings, Other (See Below ) Other Psychiatric History: developmental delay, borderline personality disorder Endocrine/Metabolic History: Reports: Hypothyroidism Hematologic History: Reports: Anemia, Iron Deficiency Immunologic History: Reports: None Oncologic (Cancer) History: Reports: None Dermatologic History: Reports: Eczema, Other (See Below) Other Dermatologic History: facial swelling, nail concerns, left finger abcess, pustule, rash - Infectious Disease History Infectious Disease History: Reports: Chicken Pox, MRSA, Shingles - Past Surgical History Head Surgeries/Procedures: Reports: None HEENT Surgical History: Reports: None Cardiovascular Surgical History: Reports: None Respiratory Surgical History: Reports: None GI Surgical History: Reports: None Female Surgical History: Reports: Other (See Below) Other Female Surgeries/Procedures: ovarian cysts Endocrine Surgical History: Reports: None Neurological Surgical History: Reports: None Oncologic Surgical History: Reports: None Dermatological Surgical History: Reports: None - SUBSTANCE USE Tobacco Use Status *Q: Never Tobacco User Recreational Drug Use History: No - HOME MEDS Home Medications: Home Meds Escitalopram [Lexapro] 20 mg PO DAILY 07/27/13 [History] Ferrous Sulfate [Ferosul] 325 mg PO BID 07/27/13 [History] Mesalamine [Lialda] 2.4 gm PO DAILY 07/27/13 [History] PNV95/Ferrous Fumarate/FA [ Multivitamins] 1 each PO DAILY 07/27/13 [History] Famotidine 20 mg PO BID 11/03/15 [History] carBAMazepine [Carbamazepine] 250 mg PO BID 07/25/17 [History] ClonazePAM [KlonoPIN] 0.5 mg PO BID 10/27/17 [History] haloperidoL [Haldol] 0.5 mg PO QAM 10/27/17 [History] polyethylene glycoL 3350 [Miralax] 17 gm PO DAILY PRN 11/07/18 [History] Albuterol [Proventil HFA] 1 - 2 puff INH Q4H PRN 07/15/20 [History] Albuterol [Proventil Neb Soln] 1 dose NEB Q4H PRN 07/15/20 [History] Budesonide [Budesonide EC] 3 mg PO DAILY 07/15/20 [History] Cetirizine [ZyrTEC] 10 mg PO DAILY 07/15/20 [History] Cholecalciferol (Vitamin D3) [Vitamin D3] 2,000 unit PO DAILY 07/15/20 [History] Levothyroxine 25 mcg PO DAILY 07/15/20 [History] Omeprazole Magnesium [Prilosec Otc] 20 mg PO DAILY 07/15/20 [History] diphenhydrAMINE HCL [Banophen] 25 mg PO BEDTIME 07/15/20 [History] haloperidoL [Haldol] 2.5 mg PO BEDTIME 07/15/20 [History] norgestrel-ethinyl estradioL [Cryselle-28 Tablet] 1 tab PO DAILY 07/15/20 [History] - CURRENT (IN HOUSE) MEDS Current Meds: Current Medications Lactated Ringer's (Ringers, Lactated) 1,000 mls @ 125 mls/hr IV ASDIRECTED LATHA Stop: 07/16/20 23:00 Lidocaine/Sodium Bicarbonate (Lidocaine 1%/Sod Bicarbonate In Ns 8.4% 1 Ml Syringe) 0.25 ml IDERM ONETIME PRN PRN Reason: Prior to IV Start Stop: 07/16/20 18:00 Sodium Chloride (Sodium Chloride 0.9% 10 Ml Syringe) 10 ml FLUSH ASDIRECTED PRN PRN Reason: Keep Vein Open Stop: 07/16/20 18:00 Discontinued Medications Fentanyl (Fentanyl 100 Mcg/2 Ml Sdv) Confirm Administered Dose 100 mcg .ROUTE .STK-MED ONE Stop: 07/16/20 07:05 Lidocaine HCl (Xylocaine-Mpf 1%) Confirm Administered Dose 4 mls @ as directed .ROUTE .STK-MED ONE Stop: 07/16/20 07:05 Midazolam HCl (Midazolam 1 Mg/Ml 2 Ml Sdv) Confirm Administered Dose 2 mg .ROUTE .STK-MED ONE Stop: 07/16/20 07:05 Propofol (Propofol 200 Mg/20 Ml Sdv) Confirm Administered Dose 200 mg .ROUTE .STK-MED ONE Stop: 07/16/20 07:04
[2020-07-16] MEDS ORDERED: Ondansetron 4 MG/2 ML SDV ONE (08:15)
--- NOTE | 2020-07-16 08:51 | PCM48HPAN ---
Post Anesthesia Note - EVALUATION WITHIN 48HRS OF ANESTHETIC Vital Signs in Normal Range: Yes Patient Participated in Evaluation: Yes Respiratory Function Stable: Yes Airway Patent: Yes Cardiovascular Function Stable: Yes Hydration Status Stable: Yes Pain Control Satisfactory: Yes Nausea and Vomiting Control Satisfactory: Yes Mental Status Recovered: Yes Vital Signs: Last Vital Signs Temp 36.6 C 07/16/20 07:10 Pulse 51 L 07/16/20 07:10 Resp 14 07/16/20 07:10 BP 98/60 07/16/20 07:10 Pulse Ox 99 07/16/20 07:10
--- NOTE | 2020-07-16 08:53 | PCM.PRNOTE ---
- Free Text/Narrative Note: Date: 07/16/2020 Procedure: ultrasound guided core needle biopsy of left breast lesion Surgeon: Christiano Marks MD Indications: abnormal screening mammogram, with subsequent negative diagnostic mammogram but 1.5 cm solid abnormality noted at left breast, 8 o'clock 3 cfn. No interventional radiologic procedures available at this location currently. The patient is mentally disabled and would not tolerate an office procedure. Findings: left breast lesion identified, consistent with available images from diagnostic ultrasound. 4 core samples obtained with 18 G needle taking 2.3 cm cores. Detailed Report: The patient was taken to the OR and placed supine. Sedation was administered. Time out was performed. The left breast was prepped and draped in sterile fashion. A sterile-draped ultrasound probe was used to examine the breast and the lesion in question was noted at the indicated position from prior ultra sound. 5 cc 0.5% marcaine with epinpehrine was injected intradermally at the 8 o'clock position just outside the areola. A tiny stab incision was made. An 18 G core biopsy gun was used to obtain 2.3 cm cores from the abnormal area using ultrasound guidance. Specimens were placed in formalin. The insertion site appeared hemostatic. A band-aid dressing was applied. The patient tolerated the procedure well.
[2020-07-16 09:48] VITALS: BP 107/71; PULSE 54
== END 2020-07-16 09:45 | disposition home or self-care (01) ==
LOC: JD.SDS 07:07
PROVIDERS: ATTEND Surgery
DX: N60.82 Other benign mammary dysplasias of left breast (principal); J45.909 Unspecified asthma, uncomplicated; E03.9 Hypothyroidism, unspecified; Z88.8 Allergy status to other drugs, medicaments and biological substances; Z88.2 Allergy status to sulfonamides; Z87.19 Personal history of other diseases of the digestive system; Z80.3 Family history of malignant neoplasm of breast; Z79.899 Other long term (current) drug therapy
CPT/HCPCS: 19083; 88305; J2250; J2405; J2704; J3010; J3490; J7120; 00400

== ENCOUNTER 2020-11-14 08:47 | Emergency (ER) | payer MEDICARE, MEDICAID ==
[2020-11-14 09:09] VITALS: BP 98/85; PULSE 66
[2020-11-14] MEDS ORDERED: Sodium Chloride 0.9% 10 ML Syringe FLUSH PRN (09:29)
[2020-11-14] MEDS ORDERED: HYDROmorphone 0.5 MG/0.5 ML Syringe IVPUSH ONE (09:29)
--- NOTE | 2020-11-14 10:28 | EDM.PDOC ---
ED HPI GENERAL MEDICAL PROBLEM - General Chief Complaint: Lower Extremity Injury/Pain Stated Complaint: BOTH ANKLES SWOLLEN Time Seen by Provider: 11/14/20 09:16 Source of Information: Reports: Patient, RN Notes Reviewed - History of Present Illness INITIAL COMMENTS - FREE TEXT/NARRATIVE: 45 yr old female with onset of R ankle pain and swelling about 5 days ago. As this worsened she was seen at the clinic 3 days ago, Xrays taken showed no fx, labs are reported to have been normal. She started developing erythema of the R ankle about 2 days ago, worse yesterday and today. This morning her L ankle has started to show mild swelling and also having some pain L ankle. R ankle continues to be quite painful, has been painful to bear weight. No hx of known arthritis. Hx of prior MRSA infection in the past. No open lesions. No fever or chills. Has not been otherwise ill. Right Foot Pain Score (Numeric/FACES): 10 - Related Data Allergies Allergy/AdvReac Type Severity Reaction Status Date / Time bupropion [From Wellbutrin] Allergy Rash Verified 11/14/20 09:09 mesalamine Allergy Rash Verified 11/14/20 09:09 montelukast [From Singulair] Allergy Rash Verified 11/14/20 09:09 Sulfa (Sulfonamide Allergy Rash Verified 11/14/20 09:09 Antibiotics) Home Meds: Home Meds Escitalopram [Lexapro] 20 mg PO DAILY 07/27/13 [History] Mesalamine [Lialda] 2.4 gm PO DAILY 07/27/13 [History] PNV95/Ferrous Fumarate/FA [ Multivitamins] 1 each PO DAILY 07/27/13 [History] Famotidine 20 mg PO BID 11/03/15 [History] carBAMazepine [Carbamazepine] 300 mg PO BID 07/25/17 [History] ClonazePAM [KlonoPIN] 0.25 mg PO BID 10/27/17 [History] haloperidoL [Haldol] 0.5 mg PO QAM 10/27/17 [History] polyethylene glycoL 3350 [Miralax] 17 gm PO DAILY PRN 11/07/18 [History] Albuterol [Proventil HFA] 1 - 2 puff INH Q4H PRN 07/15/20 [History] Albuterol [Proventil Neb Soln] 1 dose NEB Q4H PRN 07/15/20 [History] Budesonide [Budesonide EC] 3 mg PO DAILY 07/15/20 [History] Cetirizine [ZyrTEC] 10 mg PO DAILY 07/15/20 [History] Cholecalciferol (Vitamin D3) [Vitamin D3] 2,000 unit PO DAILY 07/15/20 [History] Levothyroxine 25 mcg PO DAILY 07/15/20 [History] Omeprazole Magnesium [Prilosec Otc] 20 mg PO DAILY 07/15/20 [History] diphenhydrAMINE HCL [Banophen] 50 mg PO BEDTIME 07/15/20 [History] haloperidoL [Haldol] 2.5 mg PO BEDTIME 07/15/20 [History] Indomethacin 50 mg PO BID 11/14/20 [History] SUMAtriptan [Imitrex] 100 mg PO ASDIRECTED PRN 11/14/20 [History] norgestrel-ethinyl estradioL [Elinest-28 Tablet] 1 cap PO DAILY 11/14/20 [History] Past Medical History HEENT History: Reports: Impaired Vision Other HEENT History: wears eyeglasses Cardiovascular History: Reports: None Respiratory History: Reports: Asthma Gastrointestinal History: Reports: GERD, Other (See Below) Other Gastrointestinal History: colitis Genitourinary History: Reports: UTI, Recurrent, Other (See Below) Other Genitourinary History: vaginal yeast infections [employer] PROFESSIONAL History: Reports: Other (See Below) Other [employer] PROFESSIONAL History: abnormal mammogram, dysmenorrhea, vaginitis, vulvovagintis Musculoskeletal History: Reports: None Other Musculoskeletal History: bilateral shoulder pain, left knee pain Neurological History: Reports: Migraines, Seizure Psychiatric History: Reports: Anxiety, Depression, Mood Swings, Other (See Below) Other Psychiatric History: developmental delay, borderline personality disorder Endocrine/Metabolic History: Reports: None Hematologic History: Reports: Anemia, Iron Deficiency Immunologic History: Reports: None Oncologic (Cancer) History: Reports: None Dermatologic History: Reports: Other (See Below) Other Dermatologic History: MRSA vaginal - and outbreak under nails recently, dermatitis - Infectious Disease History Infectious Disease History: Reports: Chicken Pox, MRSA, Shingles - Past Surgical History Cardiovascular Surgical History: Reports: None GI Surgical History: Reports: Colonoscopy Female Surgical History: Reports: Other (See Below) Other Female Surgeries/Procedures: ovarian cysts Social & Family History - Family History Family Medical History: No Pertinent Family History Cardiac: Reports: CAD Neurological: Reports: CVA Endocrine/Metabolic: Reports: Diabetes, type II Oncologic: Reports: Breast, Colon - Tobacco Use Tobacco Use Status *Q: Never Tobacco User Second Hand Smoke Exposure: No - Caffeine Use Caffeine Use: Reports: Coffee - Recreational Drug Use Recreational Drug Use: No - Living Situation & Occupation Occupation: Other Review of Systems - Review of Systems Review Of Systems: See Below Constitutional: Denies: Chills, Fever Mouth/Throat: Reports: No Symptoms Respiratory: Denies: Shortness of Breath, Cough Cardiovascular: Denies: Chest Pain GI/Abdominal: Denies: Abdominal Pain Musculoskeletal: Reports: Joint Pain (R and L ankle) Skin: Reports: Erythema (R ankle foot, L lateral ankle) ED EXAM, GENERAL - Physical Exam Exam: See Below General Appearance: Alert, Moderate Distress Throat/Mouth: Normal Inspection Head: Atraumatic Neck: Supple Respiratory/Chest: No Respiratory Distress, Lungs Clear, Normal Breath Sounds Cardiovascular: Regular Rate, Rhythm GI/Abdominal: Non-Tender Extremities: Joint Swelling (Marked swelling of R ankle, proximal foot, R ankle joint very tender medially and laterally, severe pain with even passive motion R ankle joint, 2 small areas of vesiculation medial L ankle and distal leg, L ankle mildly swollen, mild lateral erythema, mild tenderness medially and laterally) Neurological: Alert, No Motor/Sensory Deficits Skin Exam: Warm, Dry, Erythema (R distal leg, ankle and foot, L lateral ankle and 2 to 3 cm area of erythema, mild swelling L distal leg just proximal to the L ankle) Course - Vital Signs Last Recorded V/S: Last Vital Signs Temp 97 F 11/14/20 09:04 Pulse 66 11/14/20 09:04 Resp 14 11/14/20 09:04 BP 98/85 11/14/20 09:04 Pulse Ox 97 11/14/20 09:04 - Orders/Labs/Meds Orders: Active Orders 24 hr Category Date Time Status Peripheral IV Care [RC] . DIRECTED Care 11/14/20 09:29 Active BLOOD CULTURE [MREF] Stat Lab 11/14/20 09:49 Received Sodium Chloride 0.9% [Normal Saline] 1,000 ml Med 11/14/20 11:45 Active IV ASDIRECTED Sodium Chloride 0.9% [Saline Flush] Med 11/14/20 09:29 Active 10 ml FLUSH ASDIRECTED PRN Isolation [COMM] Routine Oth 11/14/20 09:03 Ordered Peripheral IV Insertion Adult [OM.PC] Stat Ot 11/14/20 09:28 Ordered Medication Orders Sodium Chloride (Normal Saline) 1,000 mls @ 150 mls/hr IV ASDIRECTED LATHA Last Admin: 11/14/20 11:35 Dose: 150 mls/hr Documented by: VASILE Sodium Chloride (Sodium Chloride 0.9% 10 Ml Syringe) 10 ml FLUSH ASDIRECTED PRN PRN Reason: Keep Vein Open Last Admin: 11/14/20 09:52 Dose: 10 ml Documented by: VASILE Labs: Laboratory Tests 11/14/20 11/14/20 11/14/20 Range/Units 09:49 09:49 09:49 WBC 8.42 (3.98-10.04) K/mm3 RBC 3.05 L (3.98-5.22) M/mm3 Hgb 9.5 L D (11.2-15.7) gm/dl Hct 29.5 L (34.1-44.9) % MCV 96.7 H (79.4-94.8) fl MCH 31.1 (25.6-32.2) pg MCHC 32.2 (32.2-35.5) g/dl RDW Std Deviation 41.4 (36.4-46.3) fL Plt Count 451 H D (182-369) K/mm3 MPV 8.3 L (9.4-12.3) fl Neutrophils % (Manual) 74 H (40-60) % Band Neutrophils % 7 (0-10) % Lymphocytes % (Manual) 14 L (20-40) % Atypical Lymphs % 0 % Monocytes % (Manual) 4 (2-10) % Eosinophils % (Manual) 1 (0.7-5.8) % Basophils % (Manual) 0 L (0.1-1.2) Toxic Granulation 2+ moderate Platelet Estimate Increased Plt Morphology Comment Normal Polychromasia 1+ slight RBC Morph Comment Not Reportable ESR 58 H (0-20) mm/hr Sodium (136-145) mEq/L Potassium (3.5-5.1) mEq/L Chloride (98-107) mEq/L Carbon Dioxide (21-32) mEq/L Anion Gap (5-15) BUN (7-18) mg/dL Creatinine (0.55-1.02) mg/dL Est Cr Clr Drug Dosing mL/min Estimated GFR (MDRD) (>60) mL/min BUN/Creatinine Ratio (14-18) Glucose (70-99) mg/dL Calcium (8.5-10.1) mg/dL Total Bilirubin (0.2-1.0) mg/dL AST (15-37) U/L ALT (14-59) U/L Alkaline Phosphatase (46-116) U/L C-Reactive Protein 14.0 H* (<1.0) mg/dL Total Protein (6.4-8.2) g/dl Albumin (3.4-5.0) g/dl Globulin gm/dL Albumin/Globulin Ratio (1-2) // Range/Units 09:49 WBC (3.98-10.04) K/mm3 RBC (3.98-5.22) M/mm3 Hgb (11.2-15.7) gm/dl Hct (34.1-44.9) % MCV (79.4-94.8) fl MCH (25.6-32.2) pg MCHC (32.2-35.5) g/dl RDW Std Deviation (36.4-46.3) fL Plt Count (182-369) K/mm3 MPV (9.4-12.3) fl Neutrophils % (Manual) (40-60) % Band Neutrophils % (0-10) % Lymphocytes % (Manual) (20-40) % Atypical Lymphs % % Monocytes % (Manual) (2-10) % Eosinophils % (Manual) (0.7-5.8) % Basophils % (Manual) (0.1-1.2) Toxic Granulation Platelet Estimate Plt Morphology Comment Polychromasia RBC Morph Comment ESR (0-20) mm/hr Sodium 135 L (136-145) mEq/L Potassium 4.3 (3.5-5.1) mEq/L Chloride 102 (98-107) mEq/L Carbon Dioxide 28 (21-32) mEq/L Anion Gap 9.3 (5-15) BUN 11 (7-18) mg/dL Creatinine 1.1 H (0.55-1.02) mg/dL Est Cr Clr Drug Dosing 65.84 mL/min Estimated GFR (MDRD) 54 (>60) mL/min BUN/Creatinine Ratio 10.0 L (14-18) Glucose 183 H (70-99) mg/dL Calcium 8.4 L (8.5-10.1) mg/dL Total Bilirubin 0.3 (0.2-1.0) mg/dL AST 10 L (15-37) U/L ALT 18 (14-59) U/L Alkaline Phosphatase 72 (46-116) U/L C-Reactive Protein (<1.0) mg/dL Total Protein 6.1 L (6.4-8.2) g/dl Albumin 2.4 L (3.4-5.0) g/dl Globulin 3.7 gm/dL Albumin/Globulin Ratio 0.7 L (1-2) Meds: Medications Generic Name Dose Route Start Last Admin Trade Name Freq PRN Reason Stop Dose Admin Sodium Chloride 1,000 mls @ 150 mls/hr 11/14/20 11:45 11/14/20 11:35 Normal Saline IV 150 mls/hr ASDIRECTED LATHA Administration Sodium Chloride 10 ml 11/14/20 09:29 11/14/20 09:52 Sodium Chloride 0.9% 10 Ml Syringe FLUSH 10 ml ASDIRECTED PRN Administration Keep Vein Open Discontinued Medications Generic Name Dose Route Start Last Admin Trade Name Parminderq PRN Reason Stop Dose Admin Hydromorphone HCl 0.5 mg 11/14/20 09:29 11/14/20 09:52 Hydromorphone 0.5 Mg/0.5 Ml Syringe IVPUSH 11/14/20 09:30 0.5 mg ONETIME ONE Administration Vancomycin HCl 1.5 gm/ Sodium 500 mls @ 250 mls/hr 11/14/20 10:52 11/14/20 11:16 Chloride IV 11/14/20 10:53 250 mls/hr ONETIME ONE Administration - Re-Assessments/Exams Free Text/Narrative Re-Assessment/Exam: 11/14/20 11:38 There is strong concern for septic arthritis R ankle. Unclear why/how she is now developing pain, swelling, erythema L ankle. She does have hx of MRSA. No other joints inflamed, swollen, stiff or painful. No hx of gout or arthritis. She does have hx of colitis. We have no Orthopedics or MRI capability today (Monday). Will transfer to [facility], Dr Dunlap, Orthopedist accepting Physician. We have started Vancomycin, she will go by ground ambulance. 11/14/20 12:17. WBC 8,420, 74 seg, 7 band, 14 L, ESR 58, CRP 14. Departure - Departure Time of Disposition: 11:37 Disposition: DC/Tfer to [facility] 02 Condition: Serious Clinical Impression: Septic arthritis Qualifiers: Septic arthritis location: ankle Septic arthritis organism: due to unspecified organism Laterality: right Qualified Code(s): M00.9 - Pyogenic arthritis, unspecified - Discharge Information Referrals: Kelly Rivera PA-C [Primary Care Provider] - Forms: ED Department Discharge Sepsis Event Note (ED) - Evaluation Sepsis Screening Result: No Definite Risk - Focused Exam Vital Signs: Vital Signs Temp Pulse Resp BP Pulse Ox 11/14/20 09:04 97 F 66 14 98/85 97 - My Orders Last 24 Hours: My Active Orders 11/14/20 09:03 Isolation [COMM] Routine 11/14/20 09:28 Peripheral IV Insertion Adult [OM.PC] Stat 11/14/20 09:29 Peripheral IV Care [RC] . DIRECTED Sodium Chloride 0.9% [Saline Flush] 10 ml FLUSH ASDIRECTED PRN 11/14/20 09:49 BLOOD CULTURE [MREF] Stat 11/14/20 11:45 Sodium Chloride 0.9% [Normal Saline] 1,000 ml IV ASDIRECTED - Assessment/Plan Last 24 Hours: My Active Orders 11/14/20 09:03 Isolation [COMM] Routine 11/14/20 09:28 Peripheral IV Insertion Adult [OM.PC] Stat 11/14/20 09:29 Peripheral IV Care [RC] . DIRECTED Sodium Chloride 0.9% [Saline Flush] 10 ml FLUSH ASDIRECTED PRN 11/14/20 09:49 BLOOD CULTURE [MREF] Stat 11/14/20 11:45 Sodium Chloride 0.9% [Normal Saline] 1,000 ml IV ASDIRECTED
[2020-11-14] MEDS ORDERED: Vancomycin 1.5 GM in Sodium Chloride 0.9% 500 ML IV ONE (10:52)
[2020-11-14] MEDS ORDERED: Sodium Chloride 0.9% 1,000 ML IV SCH (11:45)
== END 2020-11-14 12:06 ==
LOC: JD.ED 08:47
DX: M00.9 Pyogenic arthritis, unspecified (principal); J45.909 Unspecified asthma, uncomplicated; K21.9 Gastro-esophageal reflux disease without esophagitis; D50.9 Iron deficiency anemia, unspecified; Z88.8 Allergy status to other drugs, medicaments and biological substances; Z88.2 Allergy status to sulfonamides; Z79.899 Other long term (current) drug therapy
CPT/HCPCS: 36415; 80053; 85007; 85027; 85652; 86140; 87040; 96365; 96375; 99284; J1170; J3370; J7030; J7040; 99285

== ENCOUNTER 2022-07-16 19:17 | Emergency (ER) | payer MEDICARE, MEDICAID ==
[2022-07-16 19:37] VITALS: BP 117/76; PULSE 72
[2022-07-16] MEDS ORDERED: diphenhydrAMINE 25 MG Cap PO ONE (20:33)
[2022-07-16] MEDS ORDERED: Famotidine 40 MG/5 ML Bottle PO ONE (20:33)
[2022-07-16] MEDS ORDERED: Famotidine 20 MG Tab PO ONE (21:00)
[2022-07-16] MEDS ORDERED: Acetaminophen/HYDROcodone 325-5 MG Tab PO ONE (22:36)
[2022-07-16 23:15] LABS: CORONAVIRUS COVID-19 NAA NEGATIVE (NEGATIVE)
[2022-07-17] MEDS ORDERED: Acetaminophen/HYDROcodone 325-5 MG Tab PO ONE (01:01)
== END 2022-07-17 01:15 | disposition home or self-care (01) ==
LOC: JD.ED 19:17
DX: L98.8 Other specified disorders of the skin and subcutaneous tissue (principal); J45.909 Unspecified asthma, uncomplicated; K21.9 Gastro-esophageal reflux disease without esophagitis; D64.9 Anemia, unspecified; Z88.8 Allergy status to other drugs, medicaments and biological substances; Z88.2 Allergy status to sulfonamides; Z79.899 Other long term (current) drug therapy; Z20.822 Contact with and (suspected) exposure to COVID-19
CPT/HCPCS: 0240U; 36415; 80053; 81003; 85025; 85610; 85730; 86140; 99283; A9270

== ENCOUNTER 2022-10-22 10:41 | Emergency (ER) | payer MEDICARE, MEDICAID ==
[2022-10-22] MEDS ORDERED: Sodium Chloride 0.9% 10 ML Syringe FLUSH PRN (11:00)
[2022-10-22 11:36] LABS: BASOPHILS ABSOLUTE AUTO 0.04 K/mm3 (0.01-0.08); EOSINOPHILS ABSOLUTE AUTO 0.06 K/mm3 (0.04-0.36); EOSINOPHILS PERCENT AUTO 1.5 (0.7-5.8); HEMOGLOBIN 11.7 gm/dl (11.2-15.7); LYMPHOCYTES ABSOLUTE AUTO 0.69 K/mm3 (1.18-3.74); LYMPHOCYTES PERCENT AUTO 17.5 % (19.3-51.7); MEAN CORPUSCULAR HEMOGLOBIN 32.4 pg (25.6-32.2); MEAN CORPUSCULAR HGB CONC 33.4 g/dl (32.2-35.5); MEAN PLATELET VOLUME 8.5 fl (9.4-12.3); MONOCYTES ABSOLUTE AUTO 0.53 K/mm3 (0.24-0.36); MONOCYTES PERCENT AUTO 13.5 % (4.7-12.5); NEUTROPHILS ABSOLUTE AUTO 2.62 K/mm3 (1.56-6.13); NEUTROPHILS PERCENT AUTO 66.5 % (34.0-71.1); PLATELET COUNT,PLT 269 K/mm3 (182-369); RED BLOOD CELL COUNT 3.61 M/mm3 (3.98-5.22); WHITE BLOOD CELL COUNT,WBC 3.94 K/mm3 (3.98-10.04)
[2022-10-22] MEDS ORDERED: LORazepam 2 MG/ML SDV IVPUSH ONE ×2 (11:54→17:15)
[2022-10-22 11:56] LABS: INR 1.03
[2022-10-22 11:58] LABS: A/G RATIO 1.3 (1-2); ALBUMIN 3.9 g/dl (3.4-5.0); ANION GAP 10.3 (5-15); BILIRUBIN TOTAL 0.3 mg/dL (0.2-1.0); CALCIUM 9.6 mg/dL (8.5-10.1); EST CRCL DRUG DOSING (CG) 73.46 mL/min; POTASSIUM,K 4.3 mEq/L (3.5-5.1); PROTEIN TOTAL,TP 6.9 g/dl (6.4-8.2)
[2022-10-22 14:30] LABS: APPEARANCE,URINE CLEAR (Clear); BILIRUBIN,URINE NEGATIVE (Negative); COLOR,URINE YELLOW (Yellow); GLUCOSE,URINE NEGATIVE (Negative); KETONES,URINE 1+ (Negative); LEUKOCYTE ESTERASE,URINE NEGATIVE (Negative); NITRITE,URINE NEGATIVE (Negative); OCCULT BLOOD,URINE NEGATIVE (Negative); PROTEIN,URINE NEGATIVE (Negative); UROBILINOGEN,URINE 0.2 (0.2-1.0)
[2022-10-22] MEDS ORDERED: Lidocaine 1% with EPINEPHrine 1:100,000 10 ML MDV INJECT ONE (17:03)
[2022-10-22] MEDS ORDERED: cefTRIAXone 1 GM in Sodium Chloride 0.9% 100 ML IV ONE (17:47)
[2022-10-22 18:43] VITALS: BP 120/74; PULSE 68
== END 2022-10-22 18:30 | disposition home or self-care (01) ==
LOC: JD.ED 10:41
DX: S02.42XA Fracture of alveolus of maxilla, initial encounter for closed fracture (principal); S03.2XXA Dislocation of tooth, initial encounter; S01.81XA Laceration without foreign body of other part of head, initial encounter; J45.909 Unspecified asthma, uncomplicated; K21.9 Gastro-esophageal reflux disease without esophagitis; Z88.1 Allergy status to other antibiotic agents; Z88.8 Allergy status to other drugs, medicaments and biological substances; Z79.899 Other long term (current) drug therapy; Z79.51 Long term (current) use of inhaled steroids; W01.0XXA Fall on same level from slipping, tripping and stumbling without subsequent striking against object, initial encounter
CPT/HCPCS: 12011; 36415; 70450; 70486; 72125; 80053; 81003; 84703; 85025; 85610; 93005; 96365; 96375; 96376; 99284; J0696; J2060; J3490

== ENCOUNTER 2025-03-01 12:16 | Emergency (ER) | payer MEDICARE, MEDICAID ==
[2025-03-01 15:03] VITALS: BP 111/80; PULSE 61
== END 2025-03-01 14:20 | disposition home or self-care (01) ==
LOC: JD.ED 12:16
DX: S21.209A Unspecified open wound of unspecified back wall of thorax without penetration into thoracic cavity, initial encounter (principal); J45.909 Unspecified asthma, uncomplicated; K21.9 Gastro-esophageal reflux disease without esophagitis; Z88.2 Allergy status to sulfonamides; Z88.8 Allergy status to other drugs, medicaments and biological substances; Z79.890 Hormone replacement therapy; Z79.899 Other long term (current) drug therapy; X58.XXXA Exposure to other specified factors, initial encounter
CPT/HCPCS: 99282